=== PATIENT | male | born 1980 | race Caucasian/White ===

== ENCOUNTER 2017-11-05 20:48 | Emergency (ER) | payer MEDICAID, SELFPAY ==
[2017-11-05 21:11] VITALS: BP 117/73; PULSE 84; RESP 18; TEMP 36.9; O2SAT 96
--- NOTE | 2017-11-05 21:24 | ED.GENADUL_ITS ---
Disposition Clinical Impression: Bilateral conjunctivitis Disposition: HOME Condition: Good Instructions: Conjunctivitis (ED) Additional Instructions: Apply ointment to both eyes for 7 days every 6 hours, or until tube is gone if you have deep eye pain or severe worsening of pain return to the emergency department follow up with your primary care provider this week if no improvement Medical Decision Making - Medical Decision Making pt here with what appears to be conjunctivitis, will start on abx ointment. HAs otherwise reassuring exam, no suggestion at this time of gluacoma or orbital cellulitis. ADvised f/u with pcp if no improvement this week and return precautions given - Differential Diagnosis bacterial vs viral vs allergic conjunctivitis History of Present Illness - General Chief complaint: EyeProblem Stated complaint: PINK EYE? Time Seen by Provider: 11/05/17 21:15 Source: patient Mode of arrival: ambulatory Limitations: no limitations - History of Present Illness Initial comments: 37 yo male comes in with 3 days of redness and crusting of the eyes. STarted initially in left eye and now is in right eye. Denies blurred vision or deep eye pain. Has eomi with no pain on movement, PERRL, no periorbital swelling. Both conjunctiva have mild injection, no iritis, iop 10 in each eye. MD Complaint: eye discharge and discomfort Onset/Timin -: days(s) Location: eyes Radiation: non-radiation Severity scale (1-10): 5 Quality: burning Consistency: constant Improves with: none Worsens with: none Associated Symptoms: denies other symptoms - Related Data Fluticasone Propionate [Flonase Allergy Relief] 1 - 2 spray NS DAILY #1 bottle 12/29/15 Albuterol Sulfate [Proair Hfa] 1 - 2 puff IH Q6H PRN #1 inhaler 05/25/17 Budesonide/Formoterol Fumarate [Symbicort 160/4.5 Mcg Inhaler] 2 puff IH BID #1 inhaler 07/04/17 Buspirone HCl 5 mg PO DAILY #90 tab-cap 07/04/17 Cetirizine HCl 10 mg PO DAILY #90 tab 07/04/17 Citalopram Hydrobromide [Citalopram HBr] 20 mg PO DAILY #90 tab 07/04/17 Clonidine HCl 0.1 mg PO HS #90 tab-cap 07/04/17 Gabapentin 600 mg PO BID #180 tab-cap 07/04/17 Lisinopril/Hydrochlorothiazide [Lisinopril-Hctz 10-12.5 mg Tab] 1 tab PO DAILY # 90 tab-cap 07/04/17 Nicotine [Nicotine Patch] 14 mg TD DAILY #28 patch 10/10/17 Allergies Allergy/AdvReac Type Severity Reaction Status Date / Time citalopram AdvReac tremors Unverified 08/01/17 10:06 Opioids - Morphine Analogues AdvReac (h/o Unverified 10/10/17 11:00 addiction; wants to avoid where possible) animal dander Allergy Mild Uncoded 01/03/17 10:40 dust Allergy Mild Uncoded 01/03/17 10:40 hay Allergy Mild Uncoded 01/03/17 10:40 pollen Allergy Mild Uncoded 01/03/17 10:40 Review of Systems Constitutional: denies: fever Respiratory: denies: shortness of breath Cardiovascular: denies: chest pain Gastrointestinal: denies: abdominal pain, nausea, vomiting Musculoskeletal: denies: back pain Skin: denies: rash Comment: All other systems reviewed and negative Past Medical History - Past Medical History Medical history: hypertension - Social History Alcohol use: none Drug use: none General Exam - General Limitations: no limitations General appearance: alert, in no apparent distress - Head Head exam: Present: atraumatic - Eye Eye exam: Present: PERRL, EOMI, conjunctival injection - ENT ENT exam: Present: mucous membranes moist - Neck Neck exam: Present: normal inspection - Respiratory Respiratory exam: Absent: respiratory distress - Cardiovascular Cardiovascular Exam: Present: regular rate - Extremities Exam Extremities exam: Present: normal inspection - Neurological Exam Neurological exam: Present: alert, oriented X3, CN II-XII intact - Psychiatric Psychiatric exam: Present: normal affect - Skin Skin exam: Present: warm Course Vital Signs - 24 hr 11/05/17 21:11 Temperature 98.4 F Pulse 84 Respiratory 18 Rate Blood Pressure 117/73 Pulse Oximetry 96
[2017-11-05] MEDS: Erythromycin Ophth Oint 3.5 GM TUBE OP (21:32)
== END 2017-11-05 21:33 | disposition home or self-care (01) ==
PROVIDERS: Emergency Provider Emergency Medicine; PCP Nurse Practitioner
DX: H10.023 Other mucopurulent conjunctivitis, bilateral (principal); I10 Essential (primary) hypertension
CPT/HCPCS: 99283

== ENCOUNTER 2018-01-04 10:27 | Outpatient (REF) | payer MEDICAID, SELFPAY | END 2018-01-04 10:47 | LOC: LBN 10:27 | PROVIDERS: PCP Nurse Practitioner; Visit Provider Nurse Practitioner Family | DX: J02.9 Acute pharyngitis, unspecified (principal) | CPT/HCPCS: 87070 ==

== ENCOUNTER 2018-01-12 10:34 | Outpatient (CLI) | payer MEDICAID, SELFPAY ==
[2018-01-12 13:12] LABS: ALT 30 U/L (12-78); AST 16 U/L (15-37); Albumin 3.4 g/dL (3.4-5.0); Alkaline Phosphatase 84 U/L (46-116); Anion Gap 7.6 mmol/L (3-11); BUN 15 mg/dL (7-18); Bilirubin, Total 0.3 mg/dL (0.2-1.0); CO2 30.4 mmol/L (21.0-32.0); CREATININE 0.85 mg/dL (0.70-1.30); Calcium 9.1 mg/dL (8.5-10.1); Chloride 104 mmol/L (98-107); Glucose 91 mg/dL (70-100); Potassium 3.8 mmol/L (3.5-5.1); Sodium 142 mmol/L (136-145); Total Protein 7.5 g/dL (6.4-8.2)
[2018-01-16 15:13] LABS: HCV RNA Detection Quantitative Undetected IU/mL (UNDECT)
== END 2018-01-12 10:54 ==
PROVIDERS: PCP Nurse Practitioner; Visit Provider Physician Assistant Medical
DX: B18.2 Chronic viral hepatitis C (principal)
CPT/HCPCS: 36415; 80053; 87522

== ENCOUNTER 2018-06-06 16:27 | Outpatient (CLI) | payer MEDICAID, SELFPAY ==
[2018-06-06 17:43] LABS: *AMPHETAMINES SCREEN URINE Negative (Negative); *BARBITURATES SCREEN URINE Negative (Negative); *BENZODIAZEPINES SCREEN URINE Negative (Negative); Cannabinoids THC Negative (Negative); Cocaine Screen,Urine Negative (Negative); METHADONE URINE SCREEN Negative (Negative); OPIATES URINE SCREEN Negative (Negative)
[2018-06-06 17:56] LABS: Tricyclic Antidepressants Negative (Negative)
[2018-06-06 18:32] LABS: ALT 21 U/L (12-78); AST 18 U/L (15-37); Albumin 3.5 g/dL (3.4-5.0); Alkaline Phosphatase 79 U/L (46-116); Anion Gap 6.4 mmol/L (3-11); BUN 21 mg/dL (7-18); Bilirubin, Total 0.3 mg/dL (0.2-1.0); CO2 32.6 mmol/L (21.0-32.0); Calcium 9.1 mg/dL (8.5-10.1); Chloride 103 mmol/L (98-107); Glucose 83 mg/dL (70-100); Potassium 3.8 mmol/L (3.5-5.1); Sodium 142 mmol/L (136-145); Total Protein 7.7 g/dL (6.4-8.2)
[2018-06-08 14:48] LABS: HCV RNA Detection Quantitative Undetected IU/mL (UNDECT)
== END 2018-06-06 16:47 ==
PROVIDERS: PCP Nurse Practitioner; Visit Provider Nurse Practitioner Adult Health
DX: B17.10 Acute hepatitis C without hepatic coma (principal); F11.21 Opioid dependence, in remission
CPT/HCPCS: 36415; 80053; 80307; 87522

== ENCOUNTER 2018-08-21 16:43 | Emergency (ER) | payer MEDICAID, SELFPAY ==
[2018-08-21 17:03] VITALS: BP 130/82; PULSE 88; RESP 18; TEMP 36.7; O2SAT 99
--- NOTE | 2018-08-21 18:11 | ED.GENADUL_ITS ---
Discharge Plan Disposition Patient Disposition: HOME Discharge Details Chief Complaint: Cellulitis Clinical Impression: Cellulitis of arm, right, Drug abuse, IV, Phlebitis of right arm Primary Care Provider: Lynn Walker ED Provider: Conrado Odom Home Meds and New Rx's Prescriptions: New cephalexin 500 mg tablet 500 mg PO QID 10 Days Qty: 40 RF: 0 sulfamethoxazole-trimethoprim [Bactrim DS] 800-160 mg tablet 1 tab PO BID 10 Days Qty: 20 RF: 0 naloxone 4 mg/actuation spray,non-aerosol 1 spray ARCHANA ONCE PRN (Reason: opioid overdose) Qty: 2 RF: 0 No Action fluticasone propionate [Flonase Allergy Relief] 50 mcg/actuation spray,suspension 1 - 2 spray ARCHANA DAILY PRN (Reason: allergy symptoms) Qty: 9.9 RF: 3 ProAir HFA 90 mcg/actuation HFA aerosol inhaler 1 - 2 puff Inhalation Q4H PRN (Reason: bronchospasm) Qty: 8.5 RF: 6 cetirizine 10 MG tablet 10 mg PO DAILY Qty: 90 RF: 3 Symbicort 10.2 GM HFA aerosol inhaler 2 puff Inhalation BID Qty: 1 RF: 11 nicotine 1 EACH patch 24 hour 14 mg Transdermal DAILY Qty: 28 RF: 0 Mavyret 100-40 mg tablet 3 tab PO DAILY RF: 0 buspirone 5 mg tablet 5 mg PO DAILY Qty: 90 RF: 3 citalopram 10 mg tablet 10 mg PO DAILY Qty: 90 RF: 1 gabapentin 100 mg capsule 100 mg PO DAILY Qty: 90 RF: 1 lisinopril-hydrochlorothiazide 10-12.5 mg tablet 1 tab PO DAILY Qty: 90 RF: 3 Discharge Instructions Instructions: Cellulitis (ED), Superficial Thrombophlebitis (ED) Additional Instructions: Elevate your arm whenever possible. Take your antibiotics to completion. Return to the emergency department promptly for any worsening symptoms including fever, chills, fatigue, worsening redness or pain. Follow-up with your primary care provider or with the emergency department within 48 hours for a recheck Referrals: Lynn Walker, ECHOCARDIOGRAPH TECHNICIAN [Primary Care Provider] - Medical Decision Making Initially patient denied IV drug injection but ultimately disclosed that he did inject IV heroin at site of erythema and pain. Denies any injection of caustic agents such as bath salts. Offered imaging study to evaluate for presence of foreign body such as needle, patient declined states 6 he does not believe he lost any needle component. I did perform a bedside ultrasound which does reveal significant cobblestoning along the area of erythema consistent with cellulitis. Approximately 2 cm depth I do visualize what I believe to be the basilic vein which appears to have a hypoechoic area adjacent to it tracking along it, which I suspect to be consistent with phlebitis of the basilic vein. I do not see any large fluid collection and thus will hold off on incision and drainage patient is lacking constitutional symptoms and overall feels he is improving from 24 hours ago nevertheless due to the extensive size and location of this infection, I have instructed him to return here in 48 hours or with his PCP which she has currently scheduled. Additionally he is aware of need to return promptly for any worsening symptoms as we have reviewed. Medical Records Medical records reviewed: Yes I reviewed the patient's medical records. HPI General Date/Time Provider Initiated Documentation: 08/21/18 17:12 . Limitations to Documentation: no limitations . Information obtained by: patient . HPI Narrative: Gómez Wilson is a 38-year-old gentleman with past medical history significant for IV heroin use, last injected 4 days ago right medial elbow. The following day he developed redness and discomfort at that site, which is slowly progressed over the last 3 days to present time. He denies fevers chills lethargy elbow pain weakness muscle stiffness. He states yesterday he tried to drain it himself with a knife and was able to get a small amount of purulent drainage from the site. Patient denies injecting any other material aside from heroin. She he denies possible retained needle and declines any imaging of this area. He has no additional complaints Related Data Home Medications Medication Instructions Recorded Confirmed Symbicort 2 puff INHALATION BID #1 inhaler 07/04/17 04/14/18 cetirizine 10 mg PO DAILY #90 tab 07/04/17 04/14/18 nicotine 14 mg TRANSDERMAL DAILY #28 patch 10/10/17 04/14/18 fluticasone propionate 50 1 - 2 spray ARCHANA DAILY PRN #9.9 gm 12/06/17 04/14/18 mcg/actuation nasal spray,suspension glecaprevir 100 mg-pibrentasvir 40 3 tab PO DAILY 12/13/17 04/14/18 mg tablet buspirone 5 mg tablet 5 mg PO DAILY #90 tab 02/13/18 04/14/18 albuterol sulfate HFA 90 1 - 2 puff INHALATION Q4H PRN #8.5 04/14/18 04/14/18 mcg/actuation aerosol inhaler gm cephalexin 500 mg PO QID 10 Days #40 tab 08/21/18 citalopram 10 mg tablet 10 mg PO DAILY #90 tab 08/21/18 gabapentin 100 mg capsule 100 mg PO DAILY #90 cap 08/21/18 lisinopril 10 1 tab PO DAILY #90 tab-cap 08/21/18 mg-hydrochlorothiazide 12.5 mg tablet naloxone 1 spray ARCHANA ONCE PRN #2 each 08/21/18 sulfamethoxazole-trimethoprim 1 tab PO BID 10 Days #20 tab 08/21/18 [Bactrim DS] Previous Rx's Medication Instructions Recorded Symbicort 2 puff INHALATION BID #1 inhaler 07/04/17 cetirizine 10 mg PO DAILY #90 tab 07/04/17 nicotine 14 mg TRANSDERMAL DAILY #28 patch 10/10/17 fluticasone propionate 50 1 - 2 spray ARCHANA DAILY PRN #9.9 gm 12/06/17 mcg/actuation nasal spray,suspension buspirone 5 mg tablet 5 mg PO DAILY #90 tab 02/13/18 albuterol sulfate HFA 90 1 - 2 puff INHALATION Q4H PRN #8.5 04/14/18 mcg/actuation aerosol inhaler gm cephalexin 500 mg PO QID 10 Days #40 tab 08/21/18 citalopram 10 mg tablet 10 mg PO DAILY #90 tab 08/21/18 gabapentin 100 mg capsule 100 mg PO DAILY #90 cap 08/21/18 lisinopril 10 1 tab PO DAILY #90 tab-cap 08/21/18 mg-hydrochlorothiazide 12.5 mg tablet naloxone 1 spray ARCHANA ONCE PRN #2 each 08/21/18 sulfamethoxazole-trimethoprim 1 tab PO BID 10 Days #20 tab 08/21/18 [Bactrim DS] Allergies Allergy/AdvReac Type Severity Reaction Status Date / Time citalopram AdvReac Intermediate tremors Verified 04/14/18 13:02 Opioids - Morphine Analogues AdvReac Unknown (h/o Verified 04/14/18 13:02 addiction; wants to avoid where possible) dust Allergy Mild unknown Uncoded 04/14/18 13:02 hay Allergy Mild unknown Uncoded 04/14/18 13:02 pollen Allergy Mild unknown Uncoded 04/14/18 13:02 animal dander Allergy Unknown unknown Uncoded 04/14/18 13:02 General Stated Complaint: Cellulitis ASHTYN: 3 Review of Systems Review of Systems All systems reviewed & are unremarkable except as noted in HPI and below Constitutional Denies chills, Denies fatigue, Denies fever(s) and Denies lethargy Eyes Denies loss of vision ENT Denies nasal congestion and Denies sore throat Cardiovascular Denies chest pain and Denies dyspnea Respiratory Denies cough and Denies dyspnea Gastrointestinal Denies abdominal pain, Denies nausea and Denies vomiting Musculoskeletal Denies back pain, Denies muscle weakness and Denies numbness Integumentary/Breasts Reports erythema (and swelling right elbow and upper arm) Neurologic Denies focal weakness, Denies loss of vision and Denies numbness Endocrine Denies fatigue Hematologic/Lymphatic Denies easy bruising [facility] Medical History Depression (Chronic 03/08/16) Solitary right kidney (Chronic) Nicotine dependence (Chronic) Opioid dependence in remission (Chronic 02/09/16) Intravenous drug abuse, episodic (Resolved 07/04/17) Essential hypertension (Chronic 01/07/14) Asthma (Chronic 11/26/13) Allergic rhinitis (Chronic 11/26/13) Acute hepatitis C without hepatic coma (Chronic 10/10/17) [place] teeth extracted (Resolved) Heroin use (Resolved) De Quervain's disease (radial styloid tenosynovitis) (Resolved 09/06/16) [place] teeth extracted (Inactive) Social History Smoking/Tobacco Use Status: Current every day Tobacco Type: cigarettes Tobacco: How many years used: 10 Alcohol Intake: current Alcohol Intake frequency: other Details: pt states has not drank in the past year Substance use type: former substance user Adopted: No Household members: family and other Details: with 2 daughters Housing: house Number of Children: 2 number of grandchildren: 0 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[employer], 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 [employer] Pets and animals: Yes (2 dogs) Pets and animals: dog(s) What type of physical activity do you participate in: none Seatbelt use: always Working smoke detector in home: Yes Fire extinguisher in home: Yes Do you feel safe at home: Yes Do you feel safe in your relationship?: Yes Exam Const General: cooperative, healthy appearing and no acute distress HENMT Head: normal to inspection Ears: hearing grossly normal bilaterally Eyes EOM: EOM intact bilaterally Neck Neck: normal visual inspection Resp Effort & Inspection: normal respiratory effort Auscultation: clear to auscultation bilaterally Cardio Rate: regular rate Rhythm: regular rhythm Heart Sounds: no murmurs GI Palpation: soft and nontender Skin Other: Right medial elbow and medial upper arm is with erythema warmth and tenderness extending from the medial condyle to the mid shaft of his upper arm along the medial aspect. There is approximately 3 cm area adjacent to a 0.5 cm puncture site localized to the medial elbow of tenderness and induration. There is no fluctuance. There is no discharge. Neuro General: alert, awake and oriented x3 Speech: speech normal Gait: normal gait Extrem General: normal to inspection Course Vital Signs Temperature 36.7 C 08/21/18 17:03 Pulse 88 08/21/18 17:03 Respiratory Rate 18 08/21/18 17:03 Blood Pressure 130/82 08/21/18 17:03 Pulse Oximetry 99 08/21/18 17:03 Temperature 36.7 C 08/21/18 17:03 Temperature Source Skin 08/21/18 17:03 Pulse 88 08/21/18 17:03 Respiratory Rate 18 08/21/18 17:03 Respiratory Effort Non-Labored 08/21/18 17:08 Blood Pressure 130/82 08/21/18 17:03 Blood Pressure Position Sitting 08/21/18 17:03 Pulse Oximetry 99 08/21/18 17:03 Oxygen Delivery Method Room Air 08/21/18 17:03 Oxygen Flow Rate 0 08/21/18 17:03 Pain Level 5 08/21/18 17:03
== END 2018-08-21 18:30 | disposition home or self-care (01) ==
PROVIDERS: Emergency Provider Physician Assistant Medical; PCP Nurse Practitioner
DX: L03.113 Cellulitis of right upper limb (principal); I80.8 Phlebitis and thrombophlebitis of other sites; F11.20 Opioid dependence, uncomplicated; I10 Essential (primary) hypertension
CPT/HCPCS: 99284

== ENCOUNTER 2018-11-16 12:32 | Outpatient (CLI) | payer MEDICAID, SELFPAY ==
[2018-11-16 13:58] LABS: ALT 27 U/L (12-78); AST 16 U/L (15-37); Albumin 3.8 g/dL (3.4-5.0); Alkaline Phosphatase 85 U/L (46-116); Anion Gap 10.4 mmol/L (3-11); BUN 17 mg/dL (7-18); Bilirubin, Total 0.4 mg/dL (0.2-1.0); CO2 28.6 mmol/L (21.0-32.0); CREATININE 1.17 mg/dL (0.70-1.30); Chloride 103 mmol/L (98-107); Glucose 93 mg/dL (70-100); Potassium 3.8 mmol/L (3.5-5.1); Sodium 142 mmol/L (136-145); Total Protein 7.6 g/dL (6.4-8.2)
[2018-11-17 10:20] LABS: Hepatitis C Ab w Rflx HCV PCR Reactive (NEGAT)
[2018-11-17 13:12] LABS: HIV-1/2 Ag & Ab Screen Negative (NEGAT)
[2018-11-20 15:47] LABS: HCV RNA Detection Quantitative Undetected IU/mL (UNDECT)
== END 2018-11-16 12:52 ==
PROVIDERS: PCP Nurse Practitioner Adult Health; Visit Provider Nurse Practitioner Adult Health
DX: F11.21 Opioid dependence, in remission (principal); F19.10 Other psychoactive substance abuse, uncomplicated; I10 Essential (primary) hypertension
CPT/HCPCS: 36415; 80053; 86803; 87389; 87522

== ENCOUNTER 2020-02-05 08:31 | Outpatient (CLI) | payer BC, MEDICAID, SELFPAY ==
[2020-02-08 13:54] LABS: Patient Race White; SARS-CoV-2 RNA Undetected (Undetected); SARS-CoV-2 Specimen Source Nasal
== END 2020-02-05 08:51 ==
PROVIDERS: PCP Nurse Practitioner Adult Health; Visit Provider Nurse Practitioner Adult Health
DX: J02.9 Acute pharyngitis, unspecified (principal); R53.83 Other fatigue; M79.10 Myalgia, unspecified site
CPT/HCPCS: U0003

== ENCOUNTER 2020-11-05 12:35 | Outpatient (CLI) | payer MEDICAID, SELFPAY ==
[2020-11-05 15:04] LABS: ALT 32 U/L (16-63); AST 23 U/L (15-37); Albumin 3.8 g/dL (3.4-5.0); Alkaline Phosphatase 99 U/L (46-116); Anion Gap 7.7 mmol/L (3-11); BUN 14 mg/dL (7-18); Bilirubin, Total 0.5 mg/dL (0.2-1.0); CO2 33.3 mmol/L (21.0-32.0); CREATININE 0.9 mg/dL (0.70-1.30); Calcium 9.3 mg/dL (8.5-10.1); Chloride 103 mmol/L (98-107); Glucose 91 mg/dL (74-106); Potassium 3.6 mmol/L (3.5-5.1); Sodium 144 mmol/L (136-145); Total Protein 7.9 g/dL (6.4-8.2)
[2020-11-06 09:21] LABS: HIV-1/2 Ag & Ab Screen Negative (Negative)
[2020-11-06 09:57] LABS: Hepatitis C Ab w Rflx HCV PCR Reactive (Negative)
[2020-11-06 14:31] LABS: HCV RNA Qualitative Undetected (Undetected)
== END 2020-11-05 12:36 | disposition home or self-care (01) ==
LOC: LBO 12:37
PROVIDERS: PCP Nurse Practitioner Adult Health; Visit Provider Nurse Practitioner Adult Health
DX: B18.2 Chronic viral hepatitis C (principal); F19.10 Other psychoactive substance abuse, uncomplicated
CPT/HCPCS: 36415; 80053; 86803; 87389; 87522

== ENCOUNTER 2021-05-16 13:43 | Emergency (ER) | payer MEDICAID, SELFPAY ==
--- NOTE | 2021-05-16 13:45 | ED.GENADUL_ITS ---
Discharge Plan Disposition Patient Disposition: HOME Condition: Improving Discharge Details Clinical Impression: Acute bronchitis Primary Care Provider: Amanda Ny ED Provider: Salina Kerr Home Meds and New Rx's Prescriptions: New albuterol sulfate 90 mcg/actuation aerosol powdr breath activated 2 inh IH Q6H PRN (Reason: shortness of breath or wheezing) Qty: 1 0RF doxycycline hyclate 100 mg tablet 100 mg PO BID 7 Days Qty: 14 0RF prednisone 50 mg tablet 50 mg PO DAILY 5 Days Qty: 5 0RF benzonatate 100 mg capsule 100 mg PO TID PRN (Reason: cough) Qty: 10 0RF Continued citalopram 20 mg tablet 20 mg PO DAILY Qty: 90 3RF Rx Instructions: Dose increase 10/08/2020 budesonide-formoterol [Symbicort] 160-4.5 mcg/actuation HFA aerosol inhaler 2 puff Inhalation BID Qty: 3 3RF Rx Instructions: DX: ASTHMA buspirone 5 mg tablet 10 mg PO DAILY Qty: 180 3RF methadone 10 mg/5 mL solution 80 mg PO DAILY 0RF Label Comments: BARRT fluticasone propionate [Flonase Allergy Relief] 50 mcg/actuation spray ,suspension 1 - 2 spray ARCHANA DAILY PRN (Reason: allergy symptoms) Qty: 9.9 3RF Rx Instructions: administer into each nostril albuterol sulfate [ProAir HFA] 90 mcg/actuation HFA aerosol inhaler 1 - 2 puff Inhalation Q4H PRN (Reason: bronchospasm) Qty: 17 3RF Rx Instructions: DX: ASTHMA Equivalent Ventolin may be substituted or other albuterol; if able, please dispense 2 inhalers at a time dextroamphetamine-amphetamine [Adderall] 20 mg tablet 20 mg PO BID 0RF Rx Instructions: 01/30/21-per voicemail left from BRITTANI Mustafa (Increased to 20mg BID) lisinopril-hydrochlorothiazide 20-25 mg tablet 1 tab PO DAILY Qty: 90 3RF cetirizine 10 mg tablet 10 mg PO DAILY Qty: 90 3RF Rx Instructions: DX: RUNNY NOSE AND ASTHMA naloxone 4 mg/actuation spray,non-aerosol 1 spray ARCHANA ONCE PRN (Reason: opioid overdose) Qty: 2 0RF albuterol sulfate [ProAir HFA] 90 mcg/actuation HFA aerosol inhaler INHALATION 0RF Label Comments: INHALE 1-2 PUFFS INHALATION EVERY 4 HOURS NEEDED FOR BRONCHOSPASMS Discharge Instructions Instructions: Acute Bronchitis (ED) Additional Instructions: Your chest x-ray today is negative for any acute disease. Your Covid test result is pending. A prescription for an inhaler, cough medication, steroids and antibiotics have been sent electronically to [facility] in [facility]. Drink plenty of fluids and get plenty of rest. Follow-up with your primary care doctor in 1 week. Return to the emergency department with any worsening or new concerning symptoms such as worsening shortness of breath or any other concerns. Please quarantine until your Covid test result is available and if confirmed to be negative. Stand Alone Forms: Work Release Discharge Data Discharge Physician: Salina Kerr Medical Decision Making 41-year-old male with history of ADHD, chronic hepatitis C, multiple substance abuse on methadone, asthma, depression and hypertension presents for productive cough, chest congestion and shortness of breath worse with activity for the past week. Vitals within normal limits. Patient appears comfortable and nontoxic. He has scattered wheezing throughout. Oxygen saturation 92 to 94% on room air. Differential diagnosis includes asthma, asthmatic bronchitis, Covid, pneumonia. Will obtain a Covid swab, portable chest x-ray, DuoNeb, steroids and reassess. Chest x-ray reviewed and negative. Patient reassessed and he states he feels better and would like to go home. He still has scattered wheezing throughout. He was offered additional neb treatment but declined. O2 saturation 92% on room air. He appears in no acute respiratory distress. Prescription for inhaler, steroids, cough medication sent electronically to his pharmacy. He was also given a prescription for antibiotics due to his smoking history. Advised to follow up with the primary care doctor for re-evaluation. Usual and customary return precautions given prior to discharge. Medical Records Medical records reviewed: Yes I reviewed the patient's medical records. Imaging Data Radiologic Study: Radiologist's impression: XR Chest Exam date and time: 05/16/2021 2:23 PM Age: 41 years old Clinical indication: Other: SOB, cough TECHNIQUE: Imaging protocol: XR of the chest. Views: 1 view. COMPARISON: No relevant prior studies available. FINDINGS: Lungs: Lungs are clear with no infiltrate or nodule. Pleural spaces: Unremarkable. No pleural effusion. No pneumothorax. Heart/Mediastinum: The heart is upper normal in size. Bones/joints: Unremarkable. IMPRESSION: No active cardiopulmonary disease. HPI General Date/Time Provider Initiated Documentation: 05/16/21 13:44 . Limitations to Documentation: no limitations . Information obtained by: patient . HPI Narrative: Patient is a 41-year-old male w/ a h/o ADHD, chronic hepatitis C, multiple substance abuse, asthma, depression, hypertension presents for cough with green sputum, shortness of breath and chest congestion for the past week. He denies any known fever and states he has been able to eat and drink. He states he used his entire inhaler over the past day due to his cough or shortness of breath. He is fully vaccinated for COVID including a booster and denies any known exposure to coronavirus. He states he took a Covid test at home yesterday which was negative. He denies any significant headache, ear pain, sore throat, vomiting or diarrhea. Related Data Home Medications Medication Instructions Recorded Confirmed naloxone 4 mg/actuation nasal spray 1 spray ARCHANA ONCE PRN #2 each 08/21/18 05/16/21 budesonide-formoterol HFA 160 2 puff INHALATION BID #3 unit 10/08/20 05/16/21 mcg-4.5 mcg/actuation aerosol inhaler (Symbicort) buspirone 5 mg tablet 10 mg PO DAILY #180 tab 10/08/20 05/16/21 citalopram 20 mg tablet 20 mg PO DAILY #90 tab 10/08/20 05/16/21 methadone 10 mg/5 mL oral solution 80 mg PO DAILY ml 11/07/20 05/16/21 dextroamphetamine-amphetamine 20 20 mg PO BID 02/04/21 05/16/21 mg tablet (Adderall) albuterol sulfate 90 mcg/actuation 1 - 2 puff INHALATION Q4H PRN #17 g 04/08/21 05/16/21 aerosol inhaler (ProAir HFA) fluticasone propionate 50 1 - 2 spray ARCHANA DAILY PRN #9.9 gm 04/08/21 05/16/21 mcg/actuation nasal spray,suspension (Flonase Allergy Relief) cetirizine 10 mg tablet 10 mg PO DAILY #90 tab 05/12/21 05/16/21 lisinopril 20 1 tab PO DAILY #90 tab 05/12/21 05/16/21 mg-hydrochlorothiazide 25 mg tablet albuterol sulfate 90 mcg/actuation INHALATION 05/16/21 05/16/21 aerosol inhaler (ProAir HFA) albuterol sulfate 90 mcg/actuation 2 inh IH Q6H PRN #1 each 05/16/21 breath activated powder inhaler benzonatate 100 mg capsule 100 mg PO TID PRN #10 cap 05/16/21 doxycycline hyclate 100 mg tablet 100 mg PO BID 7 Days #14 tab 05/16/21 prednisone 50 mg tablet 50 mg PO DAILY 5 Days #5 tab 05/16/21 Previous Rx's Medication Instructions Recorded naloxone 4 mg/actuation nasal spray 1 spray ARCHANA ONCE PRN #2 each 08/21/18 budesonide-formoterol HFA 160 2 puff INHALATION BID #3 unit 10/08/20 mcg-4.5 mcg/actuation aerosol inhaler (Symbicort) buspirone 5 mg tablet 10 mg PO DAILY #180 tab 10/08/20 citalopram 20 mg tablet 20 mg PO DAILY #90 tab 10/08/20 albuterol sulfate 90 mcg/actuation 1 - 2 puff INHALATION Q4H PRN #17 g 04/08/21 aerosol inhaler (ProAir HFA) fluticasone propionate 50 1 - 2 spray ARCHANA DAILY PRN #9.9 gm 04/08/21 mcg/actuation nasal spray,suspension (Flonase Allergy Relief) cetirizine 10 mg tablet 10 mg PO DAILY #90 tab 05/12/21 lisinopril 20 1 tab PO DAILY #90 tab 05/12/21 mg-hydrochlorothiazide 25 mg tablet albuterol sulfate 90 mcg/actuation 2 inh IH Q6H PRN #1 each 05/16/21 breath activated powder inhaler benzonatate 100 mg capsule 100 mg PO TID PRN #10 cap 05/16/21 doxycycline hyclate 100 mg tablet 100 mg PO BID 7 Days #14 tab 05/16/21 prednisone 50 mg tablet 50 mg PO DAILY 5 Days #5 tab 05/16/21 Allergies Allergy/AdvReac Type Severity Reaction Status Date / Time Opioids - Morphine Analogues AdvReac Unknown (h/o Verified 05/16/21 13:54 addiction; wants to avoid where possible) dust Allergy Mild unknown Uncoded 05/16/21 13:54 hay Allergy Mild unknown Uncoded 05/16/21 13:54 pollen Allergy Mild unknown Uncoded 05/16/21 13:54 animal dander Allergy Unknown unknown Uncoded 05/16/21 13:54 General ASHTYN: 3 Review of Systems All systems reviewed & are unremarkable except as noted in HPI and below Constitutional Constitutional: Reports as per HPI, Denies chills, Denies excessive sweating, Denies fatigue and Denies fever(s) Eyes Eyes: Denies blurry vision ENT Ears, Nose, Mouth, and Throat: Denies dizziness, Denies sore throat and Denies throat swelling Cardiovascular Cardiovascular: Denies chest pain and Reports dyspnea Respiratory Respiratory: Reports cough, Reports excessive phlegm production and Reports dyspnea Gastrointestinal Gastrointestinal: Denies abdominal pain, Denies diarrhea and Denies vomiting Genitourinary Genitourinary: Denies hematuria and Denies dysuria Musculoskeletal Musculoskeletal: Denies back pain and Denies numbness Integumentary/Breasts Skin/Breast: Denies lesions and Denies rash Neurologic Neurologic: Denies behavioral changes, Denies confusion, Denies dizziness, Denies localized weakness and Denies numbness Psychiatric Psychiatric: Denies behavioral changes, Denies confusion and Denies depression Endocrine Endocrine: Denies excessive sweating and Denies fatigue Hematologic/Lymphatic Hematologic/Lymphatic: Denies easy bruising and Denies lymphadenopathy Allergic/Immunologic Allergic/Immunologic: Denies throat swelling PFSH All Active Problems (Updated 05/16/21 @ 14:53 by Salina Kerr DO) Acute bronchitis (Acute) ADHD (attention deficit hyperactivity disorder) (Acute) [facility] started adderall 11/2020 Weight gain (Acute) Chronic hepatitis C (Chronic) s/p [facility] treatment 2018 Multiple substance abuse (Chronic) Opioids (fentanyl, heroin, IVDA), cocaine 2015: [place], heroin,cocaine 05/18/17- 05/24/17: [place] [facility] with discharge to [facility] (IV Fentanyl,IV cocaine) 10/2018: [facility] early 2019: Relapse cocaine & fentanyl 02/2020: RUBY/Methadone Depression (Chronic 03/08/16) 02/09/16 PHQ-9 score 15 mod severe Citalopram, stopped secondary to sexual side effects; resumed 04/2018 Solitary right kidney (Chronic) Incidental finding on CT 11/2017 [facility] Nicotine dependence (Chronic) Opioid dependence in remission (Chronic 02/09/16) Heroin--IVDA Iain Valdez BARRT 2014, then relapse, 2016 on Methadone 2018--IVDA (Fentanyl & Cocaine); [facility] followed by Iain Valdez; discharge on Earnest, Clonidine Essential hypertension (Chronic 01/07/14) Dx: 01/2014, RX Losartan & lifestyle Losartan dc'ed 02/2016 due to ins, changed to Lisinopril 07/2016: Higher-dose Lisinopril (20mg) caused GI probs, changed to Lisinopril- HCTZ 10-12.5mg Asthma (Chronic 11/26/13) PFTs 12/10/2013, severe obstructive disease Allergic rhinitis (Chronic 11/26/13) Medical History De Quervain's disease (radial styloid tenosynovitis) (09/06/16) Right Ortho+Mobic+Splint Surgical History Whitlash teeth extracted Family History Mother Hyperlipidemia Substance abuse nicotine, EtOH Father No problems noted. Brother Asthma Maternal Aunt Lupus Maternal Aunt Celiac disease Paternal Grandfather Pancreatic cancer Social History Smoking/Tobacco Use Status: Current every day Tobacco Type: cigarettes Years smoked: 1 Tobacco: How many years used: 10 Smokeless tobacco user: other Quit status: not considering quitting Smoking risk assessment performed?: Yes Alcohol Intake: former Year quit: 2017 Details: pt states has not drank in the past year Drug use: Current Sobriety Substance use type: heroin Details: has not used x 4 months, GOES TO [place] Adopted: No Household members: significant other Housing: house Number of Children: 2 number of grandchildren: 0 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 [employer] Pets and animals: Yes (2 dogs) Pets and animals: dog(s) What is your relationship status?: living with partner Panel score (0-1 are the most socially isolated patients): 1 What type of physical activity do you participate in: none Seatbelt use: always Working smoke detector in home: Yes Fire extinguisher in home: Yes Do you feel safe at home: Yes Do you feel safe in your relationship?: Yes Exam Const General: cooperative, healthy appearing and no acute distress Orientation: alert and awake HENMT Head: normal to inspection Ears: hearing grossly normal bilaterally, external ears normal and TM's normal bilaterally General nose exam: external nose normal Face and sinus: normal facial exam Mouth: oral mucosae normal Teeth and gingiva: dentition normal Throat: posterior oropharynx normal Eyes General: appearance normal, both eyes and all related structures Eyelids: eyelids normal Pupils: PERRL EOM: EOM intact bilaterally Neck Neck: normal visual inspection Lymphatic: no lymphadenopathy noted Chest Chest: normal inspection of the chest Resp Effort & Inspection: normal respiratory effort and able to speak in complete sentences Auscultation: wheezes scattered wheezes Cardio Rate: regular rate Rhythm: regular rhythm GI Inspection: normal to inspection Palpation: soft, not firm, no guarding, no hepatosplenomegaly, no masses and nontender Auscultation: normal bowel sounds Skin General skin exam: no rashes or lesions noted Neuro General: patient alert, patient awake and patient oriented x3 Cognition: normal cognition Speech: speech normal Gait: normal gait Motor: muscle tone normal throughout Sensory Exam: no sensory deficits noted Extrem General: normal to inspection and full ROM Psych Appearance: grossly normal Mental Status: mental status grossly normal Speech and Movement: speech and movement normal Affect: normal affect Thought Process: normal
[2021-05-16 13:49] VITALS: BP 127/67; PULSE 77; RESP 16; TEMP 36.6; O2SAT 93
--- NOTE | 2021-05-16 14:15 | DI.RAD_ITS ---
Exam(s) XR PORTABLE CHEST AP EXAM: XR PORTABLE CHEST AP CLINICAL HISTORY: cough, sob, r/o acute disease TECHNIQUE: 2D digital imaging was performed of the chest. One image was obtained. An AP view was ob tained. COMPARISON: No exams were available for comparison FINDINGS: MEDIASTINUM: Normal. HEART: Upper limits of normal in size. PULMONARY VASCULATURE: Normal. LUNGS: Clear. PLEURAL SPACE: No pleural effusion or pneumothorax. BONE:Within normal limits for the patient's age. OTHER FINDINGS:Normal. IMPRESSION: No acute pulmonary findings. DATA REPOSITORY: RADIATION DOSE DELIVERED:
[2021-05-16] MEDS: predniSONE 20 MG TAB 60 MG PO (14:32)
[2021-05-16] MEDS: Albuterol/Ipratropium 3 ML UPD VIAL UPD (15:02)
--- NOTE | 2021-05-16 15:24 | DI.VRAD_ITS ---
PROCEDURE INFORMATION: Exam: XR Chest Exam date and time: 05/16/2021 2:23 PM Age: 41 years old Clinical indication: Other: SOB, cough TECHNIQUE: Imaging protocol: XR of the chest. Views: 1 view. COMPARISON: No relevant prior studies available. FINDINGS: Lungs: Lungs are clear with no infiltrate or nodule. Pleural spaces: Unremarkable. No pleural effusion. No pneumothorax. Heart/Mediastinum: The heart is upper normal in size. Bones/joints: Unremarkable. IMPRESSION: No active cardiopulmonary disease. Dictated and Authenticated by: Magdi Bach MD. Ordering:YOBANI Downing MD
[2021-05-18 12:00] LABS: COVID-19 RT-PCR UVMMC Result Negative (Negative)
--- NOTE | 2021-05-18 18:36 | NUR.NOTE ---
letter sent to pt regarding neg covid result.Nursing Note:
== END 2021-05-16 13:52 | disposition home or self-care (01) ==
PROVIDERS: Emergency Provider Physician Assistant; PCP Nurse Practitioner Adult Health
DX: J20.9 Acute bronchitis, unspecified (principal); R06.02 Shortness of breath; Z20.822 Contact with and (suspected) exposure to COVID-19; Z87.891 Personal history of nicotine dependence
CPT/HCPCS: 99283; U0003; 71045; J7512; J7620

== ENCOUNTER 2021-11-03 03:44 | Outpatient (CLI) | payer MEDICAID, SELFPAY ==
[2021-11-03] MEDS: Albuterol HFA 18 GM 200 PUFF INH IH (14:18)
[2021-11-03] MEDS: Inhaler, Assist Device 1 EACH MC (14:19)
--- NOTE | 2021-11-04 12:51 | W.PFT ---
Date of service: 11/03/21 Time of Service: 13:41 Pulmonary Function Test Result Requesting Provider Amanda Ny Indications: Asthma Interpretation Spirometry: There is moderate airflow limitation. There is not a significant bronchodilator response. Impression Moderate airflow obstruction. Clinical Correlation therefore is recommended.
== END 2021-11-03 03:45 | disposition home or self-care (01) ==
LOC: RT 03:44
PROVIDERS: PCP Nurse Practitioner Adult Health; Visit Provider Nurse Practitioner Adult Health
DX: R94.2 Abnormal results of pulmonary function studies (principal); J45.20 Mild intermittent asthma, uncomplicated; R06.09 Other forms of dyspnea; R05.9 Cough, unspecified; F17.210 Nicotine dependence, cigarettes, uncomplicated
CPT/HCPCS: 94060

== ENCOUNTER 2022-02-23 10:57 | Emergency (ER) | payer MEDICAID, SELFPAY ==
[2022-02-23 11:10] VITALS: BP 145/100; PULSE 92; RESP 16; TEMP 35.7; O2SAT 96
--- NOTE | 2022-02-23 11:31 | ED.GENADUL_ITS ---
Discharge Plan Disposition Patient Disposition: Home Condition: Improving Discharge Details Clinical Impression: Cellulitis of arm, right Primary Care Provider: Amanda Ny ED Provider: Magdi Fatima Home Meds and New Rx's Prescriptions: New amoxicillin-pot clavulanate 875-125 mg tablet 1 tab PO BID 10 Days Qty: 20 0RF Continued methadone 10 mg/5 mL solution 110 mg PO DAILY Label Comments: BROOKE dextroamphetamine-amphetamine [Adderall] 20 mg tablet 20 mg PO BID Rx Instructions: 01/30/21-per voicemail left from BRITTANI Mustafa (Increased to 20mg BID) lisinopril-hydrochlorothiazide 20-25 mg tablet 1 tab PO DAILY Qty: 90 3RF cetirizine 10 mg tablet 10 mg PO DAILY Qty: 90 3RF Rx Instructions: DX: RUNNY NOSE AND ASTHMA citalopram 20 mg tablet See Rx Instructions .ROUTE .COMPLEX Qty: 90 3RF Dose Instruction: TAKE 1 TABLET BY MOUTH DAILY Rx Instructions: TAKE 1 TABLET BY MOUTH DAILY fluticasone propionate 50 mcg/actuation spray,suspension See Rx Instructions .ROUTE .COMPLEX Qty: 16 4RF Dose Instruction: SHAKE LIQUID AND USE 1 TO 2 SPRAYS IN EACH NOSTRIL DAILY NEEDED FOR ALLERGY SYMPTOMS Rx Instructions: SHAKE LIQUID AND USE 1 TO 2 SPRAYS IN EACH NOSTRIL DAILY NEEDED FOR ALLERGY SYMPTOMS buspirone 5 mg tablet See Rx Instructions .ROUTE .COMPLEX Qty: 180 3RF Dose Instruction: TAKE 2 TABLETS BY MOUTH ONCE DAILY FOR ANXIETY Rx Instructions: TAKE 2 TABLETS BY MOUTH ONCE DAILY FOR ANXIETY budesonide-formoterol [Symbicort] 160-4.5 mcg/actuation HFA aerosol inhaler See Rx Instructions .ROUTE .COMPLEX Qty: 30.6 0RF Dose Instruction: INHALE 2 PUFFS BY MOUTH TWICE DAILY FOR ASTHMA Rx Instructions: INHALE 2 PUFFS BY MOUTH TWICE DAILY FOR ASTHMA albuterol sulfate [ProAir HFA] 90 mcg/actuation HFA aerosol inhaler 1 - 2 puff Inhalation Q4H MDD 24 inh/day PRN (Reason: bronchospasm) Qty: 17 3RF Rx Instructions: DX: ASTHMA Equivalent Ventolin may be substituted or other albuterol; if able, please dispense 2 inhalers at a time naloxone 4 mg/actuation spray,non-aerosol 1 spray ARCHANA ONCE PRN (Reason: opioid overdose) Qty: 2 0RF Discharge Instructions Instructions: Cellulitis (ED) Additional Instructions: Take antibiotics as prescribed until finished. Elevate above the level of the heart to reduce pain and swelling. Return if develop a pointing abscess or drainage from the wound. Avoid any further use of IV needles in this affected extremity. Medical Decision Making 41-year-old male drug user states that he missed the vein on his right mid arm yesterday and has developed surrounding erythema. No fever. He has induration but no evidence of abscess formation. Discussed with him close monitoring of this. We will place him on a course of oral antibiotics. He is to follow-up for placement to rehabilitation facility tomorrow. He understands return precautions to the ER. Sign Out No HPI General Mode of arrival: ambulatory . Date/Time Provider Initiated Documentation: 02/23/22 11:01 . Limitations to Documentation: no limitations . Information obtained by: patient . History of Present Illness 41 year old M presents to the emergency department with the chief complaint of Right mid arm injection site infection, described as moderate, Quality is described as dull and constant, and is localized to the right and upper extremity. Patient reports no radiation. Patient started experiencing this hour(s) and it has been constant. No relieving factors improve symptom(s), No exacerbating factors reported . Patient notes denies fever/chills and loss of appetite. Patient did receive the following treatments prior to arrival, none Related Data Home Medications Medication Instructions Recorded Confirmed naloxone 4 mg/actuation nasal spray 1 spray intranasal ONCE PRN opioid 08/21/18 02/23/22 overdose #2 ea dextroamphetamine-amphetamine 20 20 mg PO BID 02/04/21 02/23/22 mg tablet (Adderall) cetirizine 10 mg tablet 10 mg PO DAILY #90 tabs 05/12/21 02/23/22 lisinopril 20 1 tab PO DAILY #90 tabs 05/12/21 02/23/22 mg-hydrochlorothiazide 25 mg tablet methadone 10 mg/5 mL oral solution 110 mg PO DAILY 05/29/21 02/23/22 citalopram 20 mg tablet See Rx Instructions .Route 08/12/21 02/23/22 .COMPLEX #90 tabs fluticasone propionate 50 See Rx Instructions .Route 09/15/21 02/23/22 mcg/actuation nasal .COMPLEX #16 grams spray,suspension buspirone 5 mg tablet See Rx Instructions .Route 10/12/21 02/23/22 .COMPLEX #180 tabs budesonide-formoterol HFA 160 See Rx Instructions .Route 12/28/21 02/23/22 mcg-4.5 mcg/actuation aerosol .COMPLEX #30.6 grams inhaler (Symbicort) albuterol sulfate 90 mcg/actuation 1 - 2 puff inhalation Q4H PRN 01/08/22 02/23/22 aerosol inhaler (ProAir HFA) bronchospasm #17 grams amoxicillin 875 mg-potassium 1 tab PO BID 10 days #20 tabs 02/23/22 clavulanate 125 mg tablet Previous Rx's Medication Instructions Recorded naloxone 4 mg/actuation nasal spray 1 spray intranasal ONCE PRN opioid 08/21/18 overdose #2 ea cetirizine 10 mg tablet 10 mg PO DAILY #90 tabs 05/12/21 lisinopril 20 1 tab PO DAILY #90 tabs 05/12/21 mg-hydrochlorothiazide 25 mg tablet citalopram 20 mg tablet See Rx Instructions .Route 08/12/21 .COMPLEX #90 tabs fluticasone propionate 50 See Rx Instructions .Route 09/15/21 mcg/actuation nasal .COMPLEX #16 grams spray,suspension buspirone 5 mg tablet See Rx Instructions .Route 10/12/21 .COMPLEX #180 tabs budesonide-formoterol HFA 160 See Rx Instructions .Route 12/28/21 mcg-4.5 mcg/actuation aerosol .COMPLEX #30.6 grams inhaler (Symbicort) albuterol sulfate 90 mcg/actuation 1 - 2 puff inhalation Q4H PRN 01/08/22 aerosol inhaler (ProAir HFA) bronchospasm #17 grams amoxicillin 875 mg-potassium 1 tab PO BID 10 days #20 tabs 02/23/22 clavulanate 125 mg tablet Allergies Allergy/AdvReac Type Severity Reaction Status Date / Time Opioids - Morphine Analogues AdvReac Unknown (h/o Verified 02/23/22 11:29 addiction; wants to avoid where possible) dust Allergy Mild unknown Uncoded 02/23/22 11:29 hay Allergy Mild unknown Uncoded 02/23/22 11:29 pollen Allergy Mild unknown Uncoded 02/23/22 11:29 animal dander Allergy Unknown unknown Uncoded 02/23/22 11:29 General Stated Complaint: Cellulitis ASHTYN: 3 Review of Systems Narrative: No other complaints, otherwise well. Denies fever. States he is going to rehab tomorrow. 7 systems reviewed and otherwise negative [facility] All Active Problems (Updated 02/23/22 @ 11:33 by Magdi Fatima MD) Cellulitis of arm, right (Acute) History of hepatitis C (Chronic ~2017) ADHD (attention deficit hyperactivity disorder) (Chronic ~11/2020) [facility] Psychiatry started adderall 11/2020 Multiple substance abuse (Chronic ~2014) Opioids (fentanyl, heroin, IVDA), cocaine 2015: [place], heroin,cocaine 05/18/17- 05/24/17: [place] [facility] with discharge to [facility] (IV Fentanyl,IV cocaine) 10/2018: [place] early 2019: Relapse cocaine & fentanyl 02/2020: [facility]/Methadone Depression (Chronic 03/08/16) [facility] Psychiatry 02/09/16 PHQ-9 score 15 mod severe Citalopram, stopped secondary to sexual side effects; resumed 04/2018 Solitary right kidney (Chronic ~2017) Incidental finding on CT 11/2017 [facility] [place] Nicotine dependence (Chronic) Essential hypertension (Chronic 01/07/14) Dx: 01/2014, RX Losartan & lifestyle Losartan dc'ed 02/2016 due to ins, changed to Lisinopril 07/2016: Higher-dose Lisinopril (20mg) caused GI probs, changed to Lisinopril- HCTZ 10-12.5mg Asthma (Chronic 11/26/13) PFTs 12/10/2013 severe obstructive disease & 11/2021-->airflow obstruction Medical History Allergic rhinitis (11/26/13) Chronic hepatitis C s/p [facility] [place] 2018 De Quervain's disease (radial styloid tenosynovitis) (09/06/16) Right Ortho+Mobic+Splint Intravenous drug abuse, episodic (07/04/17) IV Fentanyl and Cocaine 2018: [place] [facility]: Relapse 02/2020: [facility] with Methadone treatment Opioid dependence in remission (02/09/16) Heroin--IVDA [facility] 2014, then relapse, 2016 on Methadone 2018--IV[facility] (Fentanyl & Cocaine); [facility] [place] [facility] by [facility]; discharge on Earnest, Clonidine Surgical History Roberts teeth extracted Family History Mother Hyperlipidemia Substance abuse nicotine, EtOH Father No problems noted. Brother Asthma Maternal Aunt Lupus Maternal Aunt Celiac disease Paternal Grandfather Pancreatic cancer Social History Smoking/Tobacco Use Status: Current every day Tobacco Type: cigarettes Years smoked: 1 Tobacco: How many years used: 10 Smokeless tobacco user: other Quit status: not considering quitting Smoking risk assessment performed?: Yes Alcohol Intake: former Year quit: 2017 Drug use: Current Sobriety Substance use type: heroin Details: GO[facility] Adopted: No Household members: friend(s) Housing: house Number of Children: 2 number of grandchildren: 0 Communication Needs: None 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 Pleasant, well groomed, interactive. HEAD: Normocephalic, atraumatic ENT: Mucous membranes moist, oropharynx unremarkable, External ear exam unremarkable EYES: PERRL, EOMI NECK: Full ROM, no MERRICK, no menigismus CHEST/RES no respiratory distress EXT: Full ROM, right lateral elbow is slightly edematous with area of blanching erythema. Slight induration, no focal abscess appreciated. Neuro: Grossly normal neurologic exam, conversant, interactive. Psych: Speech fluent, thoughts congruent, affect normal Course Vital Signs Vital signs: Vital Signs Temperature 35.7 C L 02/23/22 11:10 Pulse 92 H 02/23/22 11:10 Respiratory Rate 16 02/23/22 11:10 Blood Pressure 145/100 H 02/23/22 11:10 Pulse Oximetry 96 02/23/22 11:10 Temperature 35.7 C L 02/23/22 11:10 Temperature Source Tympanic 02/23/22 11:10 Pulse 92 H 02/23/22 11:10 Respiratory Rate 16 02/23/22 11:10 Respiratory Effort 02/23/22 11:29 Blood Pressure 145/100 H 02/23/22 11:10 Blood Pressure Position Sitting 02/23/22 11:10 Pulse Oximetry 96 02/23/22 11:10 Oxygen Delivery Method Room Air 02/23/22 11:10 Oxygen Flow Rate 0 02/23/22 11:10 Pain Level 4 02/23/22 11:10
[2022-02-23] MEDS: Amoxicillin 875/Clav. 125 TAB PO (11:43)
== END 2022-02-23 11:46 | disposition home or self-care (01) ==
PROVIDERS: Emergency Provider Emergency Medicine; PCP Nurse Practitioner Adult Health
DX: L03.113 Cellulitis of right upper limb (principal)
CPT/HCPCS: 99283

== ENCOUNTER 2022-03-23 02:20 | Outpatient (CLI) | payer MEDICAID, SELFPAY ==
[2022-03-23 13:55] LABS: Abs Immature Grans 0.04 10^3/uL (0.0-0.06); Absolute Basophil Count 0.07 10^3/uL (0.0-0.2); Absolute Lymphocyte Count 2.35 10^3/uL (1.2-3.4); Absolute Neutrophil Count 6.94 10^3/uL (1.2-6.7); Basophils % 0.7; Eosinophils % 2.8; HGB 16.8 g/dL (13.5-17.5); Immature Grans % 0.4; Lymphocytes % 22.2; MCH 28.4 pg (27.0-33.0); MCHC 34.3 % (32.0-36.0); MCV 83 fL (80-95); MPV 8.8 fL (8.0-11.0); Monocytes % 8.5; Neutrophils % 65.4; Platelet Count 289 10^3/uL (130-400); RBC 5.92 10^6/uL (4.36-5.78); RDW 12.9 % (11.8-14.1); RDW-SD 38.7 fL
[2022-03-23 14:10] LABS: ALT 178 U/L (16-63); AST 71 U/L (15-37); Albumin 3.9 g/dL (3.4-5.0); Alkaline Phosphatase 98 U/L (46-116); Anion Gap 9.4 mmol/L (3-11); BUN 15 mg/dL (7-18); Bilirubin, Total 0.5 mg/dL (0.2-1.0); CO2 27.6 mmol/L (21.0-32.0); Calcium 9.9 mg/dL (8.5-10.1); Chloride 101 mmol/L (98-107); Estimated GFR 96.37 (mL/min/1.73m2); Glucose 125 mg/dL (74-106); Potassium 3.4 mmol/L (3.5-5.1); Sodium 138 mmol/L (136-145); Total Protein 8.9 g/dL (6.4-8.2)
[2022-03-24 09:32] LABS: HIV-1/2 Ag & Ab Screen Negative (Negative)
[2022-03-24 10:40] LABS: Hepatitis A Antibody IgM Negative (Negative); Hepatitis B Core Antibody Negative (Negative); Hepatitis B surface Ag Negative (Negative); Hepatitis C Ab w Rflx HCV PCR Reactive (Negative)
[2022-03-24 13:51] LABS: HCV RNA Qualitative Detected (Undetected)
== END 2022-03-23 02:21 | disposition home or self-care (01) ==
LOC: LBO 02:20
PROVIDERS: PCP Nurse Practitioner Adult Health; Visit Provider Nurse Practitioner Adult Health
DX: B18.2 Chronic viral hepatitis C (principal); Z11.4 Encounter for screening for human immunodeficiency virus [HIV]; F19.10 Other psychoactive substance abuse, uncomplicated; I10 Essential (primary) hypertension; Z86.19 Personal history of other infectious and parasitic diseases
CPT/HCPCS: 36415; 80053; 86704; 86709; 86803; 87340; 87389; 87522; 85025

== ENCOUNTER 2022-04-02 15:45 | Outpatient (REF) | payer MEDICAID, SELFPAY ==
[2022-04-02 19:11] LABS: *AMPHETAMINES SCREEN URINE Negative (Negative); *BARBITURATES SCREEN URINE Negative (Negative); *BENZODIAZEPINES SCREEN URINE Negative (Negative); Cannabinoids THC Negative (Negative); Cocaine Screen,Urine Positive (Negative); METHADONE URINE SCREEN Negative (Negative); OPIATES URINE SCREEN Positive (Negative)
[2022-04-02 19:21] LABS: Tricyclic Antidepressants Negative (Negative)
== END 2022-04-02 15:46 | disposition home or self-care (01) ==
LOC: LBN 15:45
PROVIDERS: PCP Nurse Practitioner Adult Health; Visit Provider Nurse Practitioner Adult Health
DX: Z51.81 Encounter for therapeutic drug level monitoring (principal)
CPT/HCPCS: 80307

== ENCOUNTER 2022-04-28 16:50 | Emergency (ER) | payer MEDICAID, SELFPAY ==
[2022-04-28 16:53] VITALS: BP 170/94; PULSE 76; RESP 18; TEMP 36.8; O2SAT 99
--- NOTE | 2022-04-28 17:00 | DI.CT_ITS ---
Exam(s) CT ABDOMEN PELVIS W EXAM: CT ABDOMEN PELVIS W CLINICAL HISTORY: Abd Pain, Diarrhea, Hx of hernia. TECHNIQUE: Imaging Protocol: Axial computed tomography images with coronal and sagittal reformatted images were created and reviewed CONTRAST MATERIAL: Intravenous: Omnipaque-350 100cc Oral: None COMPARISON: No exams were available for comparison FINDINGS: VISUALIZED LUNG BASES: No nodules nor pleural effusions evident. ABDOMEN: There is no ascites. LIVER: There are no focal hepatic lesions evident. No dilated intrahepatic ducts. GALLBLADDER/BILIARY: No obvious gallbladder pathology. CBD is not dilated. PANCREAS: No evidence of pancreatic mass nor dilatation of the pancreatic duct. SPLEEN: Spleen is not enlarged. No obvious intrasplenic lesions. Splenic and portal veins are paten t. ADRENALS: Right adrenal gland unremarkable. Left adrenal gland absent. KIDNEYS:There is a solitary right kidney. Slightly prominent in size, most probably compensatory. N o kidney mass nor cyst. No calculi. No hydronephrosis of the solitary right kidney. There is no le ft kidney seen. Also no obvious left adrenal gland.. ABDOMINAL AORTA: Abdominal aorta is not enlarged. LYMPH NODES:There is no retroperitoneal nor paraaortic adenopathy. ABDOMINAL WALL: There is a moderate size midline above fat containing umbilical hernia. There are no bowel loops nor fluid collection with in the hernia although some streaking within the fat within th e hernia sac is noted. GI: Small bowel is abnormal. There are mildly dilated and edematous small bowel loops exhibiting 5-6 millimeter circumferential wall thickness. Distal most ileum is collapsed. The colon is not collap sed but contains fluid and fecal material. PELVIS: GI: No evidence of appendicitis.No evidence of sigmoid diverticulitis. LYMPH NODES: There is no intrapelvic nor inguinal adenopathy. REPRODUCTIVE: There is a large abnormal cystic mass at the level of the prostate gland measuring 10 c m wide by 7 cm AP by 7.5 cm craniocaudal. Impresses upon the urinary bladder. Prostate difficult to delineate is a separate structure from this abnormal structure. URINARY BLADDER: As above. Deviated anteriorly by the prostate level mass. OSSEOUS: No fractures and no significant osseous lesions. IMPRESSION: 1. There are numerous dilated and circumferentially edematous small bowel loops either representing i nflammatory process/enteritis or possibly an element of bowel obstruction given the moderate size ant erior abdominal wall hernia here (which does not itself contain bowel loops).. The colon is not dorothea apsed. 2. Abnormal large cystic mass in the deep pelvis which appears replaced prostate gland, this measurin g 10 x 7 x 7.5 cm. This indents and deviates the urinary bladder anteriorly. 3. No obvious adenopathy evident. Incidentally noted is a solitary right kidney and solitary right a drenal gland. First read by [facility]. Discussed by myself with ER physician 04/29/2022 a.m. RADIATION DOSE DELIVERED: 928.97mGy.cm Total DLP DATA REPOSITORY: All CT scans at this facility are submitted to the National Radiology Data Registry (NRDR) Dose Index Registry (DIR) with the [employer] (ACR). RADIATION OPTIMIZATION: All CT scans at this facility use at least one of these dose optimization te chniques: automated exposure control; mA and/or kV adjustment per patient size (includes targeted exa ms where dose is matched to clinical indication); or iterative reconstruction.
--- NOTE | 2022-04-28 17:15 | ED.GENADUL_ITS ---
Discharge Plan Disposition Patient Disposition: Home Condition: Improving Discharge Details Clinical Impression: Nausea vomiting and diarrhea, Hernia, umbilical, Gastroenteritis Primary Care Provider: Amanda Ny ED Provider: Farnaz Turk Home Meds and New Rx's Prescriptions: New dicyclomine 20 mg tablet 20 mg PO TID PRN (Reason: stomach upset) Qty: 14 0RF Rx Instructions: Take 1 tablet up to 3 times daily as needed for stomach cramps or stomach upset sucralfate [Carafate] 100 mg/mL suspension 10 ml PO QACHS PRN (Reason: stomach upset) 7 Days Qty: 414 0RF Rx Instructions: Take 10 mils before meals and at bedtime as needed for stomach upset. Continued albuterol sulfate [ProAir HFA] 90 mcg/actuation HFA aerosol inhaler 1 - 2 puff Inhalation Q4H MDD 24 inh/day PRN (Reason: bronchospasm) Qty: 17 3RF Rx Instructions: DX: ASTHMA Equivalent Ventolin may be substituted or other albuterol; if able, please dispense 2 inhalers at a time budesonide-formoterol [Symbicort] 160-4.5 mcg/actuation HFA aerosol inhaler See Rx Instructions .ROUTE .COMPLEX Qty: 30.6 3RF Dose Instruction: INHALE 2 PUFFS BY MOUTH TWICE DAILY FOR ASTHMA Rx Instructions: INHALE 2 PUFFS BY MOUTH TWICE DAILY FOR ASTHMA naltrexone 50 mg tablet 50 mg PO DAILY Qty: 30 0RF lisinopril-hydrochlorothiazide 20-25 mg tablet 1 tab PO DAILY Qty: 90 3RF cetirizine 10 mg tablet 10 mg PO DAILY Qty: 90 3RF Rx Instructions: DX: RUNNY NOSE AND ASTHMA citalopram 20 mg tablet See Rx Instructions .ROUTE .COMPLEX Qty: 90 3RF Dose Instruction: TAKE 1 TABLET BY MOUTH DAILY Rx Instructions: TAKE 1 TABLET BY MOUTH DAILY fluticasone propionate 50 mcg/actuation spray,suspension See Rx Instructions .ROUTE .COMPLEX Qty: 16 4RF Dose Instruction: SHAKE LIQUID AND USE 1 TO 2 SPRAYS IN EACH NOSTRIL DAILY NEEDED FOR ALLERGY SYMPTOMS Rx Instructions: SHAKE LIQUID AND USE 1 TO 2 SPRAYS IN EACH NOSTRIL DAILY NEEDED FOR ALLERGY SYMPTOMS buspirone 5 mg tablet See Rx Instructions .ROUTE .COMPLEX Qty: 180 3RF Dose Instruction: TAKE 2 TABLETS BY MOUTH ONCE DAILY FOR ANXIETY Rx Instructions: TAKE 2 TABLETS BY MOUTH ONCE DAILY FOR ANXIETY naloxone 4 mg/actuation spray,non-aerosol 1 spray ARCHANA ONCE PRN (Reason: opioid overdose) Qty: 2 0RF Discharge Instructions Instructions: Gastroenteritis (ED), Umbilical Hernia (ED) Additional Instructions: Please take the medications as prescribed. May take the Zofran 20 to 30 minutes before eating or drinking anything as needed for nausea. Please follow-up with general surgery to discuss umbilical hernia repair. Return to the ER for any worsening pain not relieved by Tylenol or ibuprofen, vomiting not relieved by medications,, fever or any concerns or feeling sicker at any time. Follow up with primary care provider in 3-5 days. Return to ED sooner if any worsening or concerns. Increase oral fluids. Referrals: Harper Ruth MD [[facility] STAFF PHYSICIAN] - 1 week Amanda Ny MACHINIST SUPERVISOR [Primary Care Provider] - 2 weeks Joie Cornejo DO [OSTEOPATHIC DOCTOR] - 1 week Medical Decision Making 42-year-old male with a past medical history of ADHD, depression, hypertension, asthma hepatitis C and opioid use disorder in remission presents to the ER with a chief complaint of abdominal pain left upper quadrant and periumbilical which began on Tuesday, reports nausea vomiting and diarrhea on Tuesday. He reports that he is no longer vomiting however the diarrhea remains. He reports 5 episodes of loose diarrhea a day. He does have a history of umbilical hernia which has never been repaired. Work-up ordered including CBC, CMP, lipase, lactate, hepatitis panel added on, liter normal saline [address] abdomen pelvis with IV contrast to rule out obstruction or hernia. Labs returned with slight leukocytosis white blood cell count 11.58, neutrophils 7.87, sodium 139 potassium 2.8, glucose 111 ALT is 103 which is improved from his previous result AST within normal limits, lipase is 101, 1739: 10 mEq of potassium IV ordered. Will consider p.o. potassium x1 if patient is able to tolerate p.o. Differential diagnosis includes but not limited to bowel obstruction, incarcerated hernia, gastroenteritis, viral enteritis Upon reevaluation patient reports that he is feeling better. His abdominal pain has now moved to his bilateral sides. 1755: Spoke with surgeon on-call Dr. Nieto regarding CT results as noted below. Discussed labs with him he verbalized understanding. He does not recommend admission at this time but he does recommend follow-up with general surgery to discuss possible hernia repair. I will discuss strict return instructions with patient. He is receiving 10 mill equivalents of potassium IV at this time. We will give him an additional 20 mill equivalents of potassium p.o. for potassium level 2.8. This does seem appropriate as patient was able to tolerate p.o. today without any additional vomiting. Will send patient home with some dicyclomine for stomach cramping, Carafate and Zofran as needed for nausea, vomiting, diarrhea. Will discuss to return to the ER for any continued nausea vomiting not relieved by medications, worsening abdominal pain or any concerns. Patient has tolerated p.o. potassium without any additional vomiting. Patient is much improved feels better discussed follow-up care with patient and family who verbalized understanding. This text was generated using OneShieldation system, please disregard any odd ities of phrase or misspellings. Medical Records Medical records reviewed: Yes I reviewed the patient's medical records. Imaging Data Radiologic Study: Imaging: CT Scan Radiologist's impression: IMPRESSION: Enteritis/ileus suspected. No sharp transition point to suggest mechanical obstruction Moderate fat containing periumbilical hernia without CT evidence for incarceration Indeterminate cystic/tubular structure in the expected location of the seminal vesicles. Differential possibilities include cystic lesions versus obstructed ejaculatory duct. Consider nonurgent urology consultation Thank you for allowing us to participate in the care of your patient. Dictated and Authenticated by: Gómez Mejia MD Lab Data Lab results reviewed: Yes I reviewed the patient's lab results. Labs: Laboratory Tests Range/Units 04/28/22 04/28/22 04/28/22 17:08 17:08 17:12 WBC (4.4-10.8) 10^3/uL 11.58 H RBC (4.36-5.78) 10^6/uL 5.82 H Hgb (13.5-17.5) g/dL 16.4 Hct (40.0-50.0) % 47.6 MCV (80-95) fL 82 MCH (27.0-33.0) pg 28.2 MCHC (32.0-36.0) % 34.5 RDW (11.8-14.1) % 12.9 Plt Count (130-400) 10^3/uL 346 MPV (8.0-11.0) fL 9.3 Immature Gran % 0.4 Neutrophils % 68.0 Lymphocytes % 21.8 Monocytes % 8.7 Eosinophils % 0.6 Basophils % 0.5 Nucleated RBC % (0.0-0.3) % 0.0 Absolute Neutrophils (1.2-6.7) 10^3/uL 7.87 H Absolute Lymphocytes (1.2-3.4) 10^3/uL 2.52 Absolute Monocytes (0.1-0.8) 10^3/uL 1.01 H Absolute Eosinophils (0.0-0.7) 10^3/uL 0.07 Absolute Basophils (0.0-0.2) 10^3/uL 0.06 VBG Lactate Sodium (136-145) mmol/L 139 Potassium (3.5-5.1) mmol/L 2.8 L* Chloride (98-107) mmol/L 101 Carbon Dioxide (21.0-32.0) mmol/L 29.1 Anion Gap (3-11) mmol/L 8.9 BUN (7-18) mg/dL 14 Creatinine (0.70-1.30) mg/dL 0.9 Est GFR (CKD-EPI 2020) (mL/min/1.73m2) 108.68 Glucose (74-106) mg/dL 111 H Calcium (8.5-10.1) mg/dL 9.6 Magnesium (1.8-2.4) mg/dL 2.1 Total Bilirubin (0.2-1.0) mg/dL 0.9 AST (15-37) U/L 29 ALT (16-63) U/L 103 H Alkaline Phosphatase (46-116) U/L 88 Total Protein (6.4-8.2) g/dL 8.5 H Albumin (3.4-5.0) g/dL 3.7 Lipase (73-393) U/L 101 Urine Color (Yellow) Urine Clarity (Clear) Urine pH (5-8) Ur Specific Chapman (1.005-1.025) Urine Protein (Negative) mg/dL Urine Ketones (Negative) mg/dL Urine Blood (Negative) Urine Nitrite (Negative) Urine Bilirubin (Negative) Urine Urobilinogen (Up TO 0.2) EU/dL Ur Leukocyte Esterase (Negative) Urine Glucose (Negative) mg/dL Urine Opiates Screen (Negative) Urine Methadone Screen (Negative) Ur Barbiturates Screen (Negative) Ur Tricyclics Screen (Negative) Ur Amphetamines Screen (Negative) U Benzodiazepines Scrn (Negative) Urine Cocaine Screen (Negative) Ur THC Screen (Negative) Add-On Test Request TNP Range/Units 04/28/22 04/28/22 04/28/22 17:30 17:40 18:24 WBC (4.4-10.8) 10^3/uL RBC (4.36-5.78) 10^6/uL Hgb (13.5-17.5) g/dL Hct (40.0-50.0) % MCV (80-95) fL MCH (27.0-33.0) pg MCHC (32.0-36.0) % RDW (11.8-14.1) % Plt Count (130-400) 10^3/uL MPV (8.0-11.0) fL Immature Gran % Neutrophils % Lymphocytes % Monocytes % Eosinophils % Basophils % Nucleated RBC % (0.0-0.3) % Absolute Neutrophils (1.2-6.7) 10^3/uL Absolute Lymphocytes (1.2-3.4) 10^3/uL Absolute Monocytes (0.1-0.8) 10^3/uL Absolute Eosinophils (0.0-0.7) 10^3/uL Absolute Basophils (0.0-0.2) 10^3/uL VBG Lactate Cancelled 1.5 H Sodium (136-145) mmol/L Potassium (3.5-5.1) mmol/L Chloride (98-107) mmol/L Carbon Dioxide (21.0-32.0) mmol/L Anion Gap (3-11) mmol/L BUN (7-18) mg/dL Creatinine (0.70-1.30) mg/dL Est GFR (CKD-EPI 2020) (mL/min/1.73m2) Glucose (74-106) mg/dL Calcium (8.5-10.1) mg/dL Magnesium (1.8-2.4) mg/dL Total Bilirubin (0.2-1.0) mg/dL AST (15-37) U/L ALT (16-63) U/L Alkaline Phosphatase (46-116) U/L Total Protein (6.4-8.2) g/dL Albumin (3.4-5.0) g/dL Lipase (73-393) U/L Urine Color (Yellow) Urine Clarity (Clear) Urine pH (5-8) Ur Specific Chapman (1.005-1.025) Urine Protein (Negative) mg/dL Urine Ketones (Negative) mg/dL Urine Blood (Negative) Urine Nitrite (Negative) Urine Bilirubin (Negative) Urine Urobilinogen (Up TO 0.2) EU/dL Ur Leukocyte Esterase (Negative) Urine Glucose (Negative) mg/dL Urine Opiates Screen (Negative) Negative Urine Methadone Screen (Negative) Negative Ur Barbiturates Screen (Negative) Negative Ur Tricyclics Screen (Negative) Negative Ur Amphetamines Screen (Negative) Negative U Benzodiazepines Scrn (Negative) Negative Urine Cocaine Screen (Negative) Negative Ur THC Screen (Negative) Positive A Add-On Test Request Range/Units 04/28/22 18:24 WBC (4.4-10.8) 10^3/uL RBC (4.36-5.78) 10^6/uL Hgb (13.5-17.5) g/dL Hct (40.0-50.0) % MCV (80-95) fL MCH (27.0-33.0) pg MCHC (32.0-36.0) % RDW (11.8-14.1) % Plt Count (130-400) 10^3/uL MPV (8.0-11.0) fL Immature Gran % Neutrophils % Lymphocytes % Monocytes % Eosinophils % Basophils % Nucleated RBC % (0.0-0.3) % Absolute Neutrophils (1.2-6.7) 10^3/uL Absolute Lymphocytes (1.2-3.4) 10^3/uL Absolute Monocytes (0.1-0.8) 10^3/uL Absolute Eosinophils (0.0-0.7) 10^3/uL Absolute Basophils (0.0-0.2) 10^3/uL VBG Lactate Sodium (136-145) mmol/L Potassium (3.5-5.1) mmol/L Chloride (98-107) mmol/L Carbon Dioxide (21.0-32.0) mmol/L Anion Gap (3-11) mmol/L BUN (7-18) mg/dL Creatinine (0.70-1.30) mg/dL Est GFR (CKD-EPI 2020) (mL/min/1.73m2) Glucose (74-106) mg/dL Calcium (8.5-10.1) mg/dL Magnesium (1.8-2.4) mg/dL Total Bilirubin (0.2-1.0) mg/dL AST (15-37) U/L ALT (16-63) U/L Alkaline Phosphatase (46-116) U/L Total Protein (6.4-8.2) g/dL Albumin (3.4-5.0) g/dL Lipase (73-393) U/L Urine Color (Yellow) Yellow Urine Clarity (Clear) Clear Urine pH (5-8) 7.5 Ur Specific Chapman (1.005-1.025) 1.020 Urine Protein (Negative) mg/dL Negative Urine Ketones (Negative) mg/dL Negative Urine Blood (Negative) Negative Urine Nitrite (Negative) Negative Urine Bilirubin (Negative) Negative Urine Urobilinogen (Up TO 0.2) EU/dL 1.0 H Ur Leukocyte Esterase (Negative) Negative Urine Glucose (Negative) mg/dL Negative Urine Opiates Screen (Negative) Urine Methadone Screen (Negative) Ur Barbiturates Screen (Negative) Ur Tricyclics Screen (Negative) Ur Amphetamines Screen (Negative) U Benzodiazepines Scrn (Negative) Urine Cocaine Screen (Negative) Ur THC Screen (Negative) Add-On Test Request HPI General Mode of arrival: ambulatory . Date/Time Provider Initiated Documentation: 04/28/22 16:57 . Limitations to Documentation: no limitations . Information obtained by: RN notes reviewed and old records reviewed . HPI Narrative: 42-year-old male with a past medical history of ADHD, depression, hypertension, asthma hepatitis C and opioid use disorder in remission presents to the ER with a chief complaint of abdominal pain left upper quadrant and periumbilical which began on Tuesday, reports nausea vomiting and diarrhea on Tuesday. He reports that he is no longer vomiting however the diarrhea remains. He reports 5 episodes of loose diarrhea a day. He does have a history of umbilical hernia which has never been repaired. He reports that he thinks it is more purple and tender with palpation. Patient was seen by PCP in the clinic today and was referred here for further eval. Related Data Home Medications Medication Instructions Recorded Confirmed naloxone 4 mg/actuation nasal spray 1 spray intranasal ONCE PRN opioid 08/21/18 04/28/22 overdose #2 ea cetirizine 10 mg tablet 10 mg PO DAILY #90 tabs 05/12/21 04/28/22 lisinopril 20 1 tab PO DAILY #90 tabs 05/12/21 04/28/22 mg-hydrochlorothiazide 25 mg tablet citalopram 20 mg tablet See Rx Instructions .Route 08/12/21 04/28/22 .COMPLEX #90 tabs fluticasone propionate 50 See Rx Instructions .Route 09/15/21 04/28/22 mcg/actuation nasal .COMPLEX #16 grams spray,suspension buspirone 5 mg tablet See Rx Instructions .Route 10/12/21 04/28/22 .COMPLEX #180 tabs albuterol sulfate 90 mcg/actuation 1 - 2 puff inhalation Q4H PRN 03/19/22 04/28/22 aerosol inhaler (ProAir HFA) bronchospasm #17 grams budesonide-formoterol HFA 160 See Rx Instructions .Route 03/19/22 04/28/22 mcg-4.5 mcg/actuation aerosol .COMPLEX #30.6 grams inhaler (Symbicort) naltrexone 50 mg tablet 50 mg PO DAILY #30 tabs 04/19/22 04/28/22 dicyclomine 20 mg tablet 20 mg PO TID PRN stomach upset #14 04/28/22 tabs sucralfate 100 mg/mL oral 10 ml PO QACHS PRN stomach upset 7 04/28/22 suspension (Carafate) days #414 mL Previous Rx's Medication Instructions Recorded naloxone 4 mg/actuation nasal spray 1 spray intranasal ONCE PRN opioid 08/21/18 overdose #2 ea cetirizine 10 mg tablet 10 mg PO DAILY #90 tabs 05/12/21 lisinopril 20 1 tab PO DAILY #90 tabs 05/12/21 mg-hydrochlorothiazide 25 mg tablet citalopram 20 mg tablet See Rx Instructions .Route 08/12/21 .COMPLEX #90 tabs fluticasone propionate 50 See Rx Instructions .Route 09/15/21 mcg/actuation nasal .COMPLEX #16 grams spray,suspension buspirone 5 mg tablet See Rx Instructions .Route 10/12/21 .COMPLEX #180 tabs albuterol sulfate 90 mcg/actuation 1 - 2 puff inhalation Q4H PRN 03/19/22 aerosol inhaler (ProAir HFA) bronchospasm #17 grams budesonide-formoterol HFA 160 See Rx Instructions .Route 03/19/22 mcg-4.5 mcg/actuation aerosol .COMPLEX #30.6 grams inhaler (Symbicort) naltrexone 50 mg tablet 50 mg PO DAILY #30 tabs 04/19/22 dicyclomine 20 mg tablet 20 mg PO TID PRN stomach upset #14 04/28/22 tabs sucralfate 100 mg/mL oral 10 ml PO QACHS PRN stomach upset 7 04/28/22 suspension (Carafate) days #414 mL Allergies Allergy/AdvReac Type Severity Reaction Status Date / Time Opioids - Morphine Analogues AdvReac Unknown (h/o Verified 04/19/22 09:17 addiction; wants to avoid where possible) dust Allergy Mild unknown Uncoded 04/19/22 09:17 hay Allergy Mild unknown Uncoded 04/19/22 09:17 pollen Allergy Mild unknown Uncoded 04/19/22 09:17 animal dander Allergy Unknown unknown Uncoded 04/19/22 09:17 General Stated Complaint: Abd Prob ASHTYN: 3 Review of Systems All systems reviewed & are unremarkable except as noted in HPI and below Gastrointestinal Gastrointestinal: Reports abdominal pain, Reports diarrhea, Reports nausea and Reports vomiting [facility] All Active Problems (Updated 04/28/22 @ 20:16 by Farnaz Turk NP) Nausea vomiting and diarrhea (Acute) Hernia, umbilical (Acute) Gastroenteritis (Acute) Chronic hepatitis C (Acute ~2017) s/p [facility] GI treatment 2018 Cocaine use disorder, severe, dependence (Acute) Opioid use disorder, severe, dependence (Acute) History of hepatitis C (Chronic ~2017) ADHD (attention deficit hyperactivity disorder) (Chronic ~11/2020) [facility] Psychiatry started adderall 11/2020 Multiple substance abuse (Chronic ~2014) Opioids (fentanyl, heroin, IVDA), cocaine 2015: [place], heroin,cocaine 05/18/17- 05/24/17: [place] [facility] with discharge to [facility] (IV Fentanyl,IV cocaine) 10/2018: [facility] early 2020: Relapse cocaine & fentanyl 02/2020: [facility]/Methadone 03/2022: [facility] Depression (Chronic 03/08/16) [facility] Psychiatry 02/09/16 PHQ-9 score 15 mod severe Citalopram, stopped secondary to sexual side effects; resumed 04/2018 Solitary right kidney (Chronic ~2017) Incidental finding on CT 11/2017 [facility] Nicotine dependence (Chronic) Essential hypertension (Chronic 01/07/14) Dx: 01/2014, RX Losartan & lifestyle Losartan dc'ed 02/2016 due to ins, changed to Lisinopril 07/2016: Higher-dose Lisinopril (20mg) caused GI probs, changed to Lisinopril- HCTZ 10-12.5mg Asthma (Chronic 11/26/13) PFTs 12/10/2013 severe obstructive disease & 11/2021-->airflow obstruction Medical History Allergic rhinitis (11/26/13) Cannabis use disorder, severe, dependence Cellulitis of arm, right (~02/2022) IVDA De Quervain's disease (radial styloid tenosynovitis) (09/06/16) Right Ortho+Mobic+Splint Intravenous drug abuse, episodic (07/04/17) IV Fentanyl and Cocaine 2018: [place] admission followed by [facility] 2020: Relapse 02/2020: [facility] with Methadone treatment Opioid dependence in remission (02/09/16) Heroin--IVDA [facility] 2014, then relapse, 2016 on Methadone 2017--IVDA (Fentanyl & Cocaine); [facility] [place] followed by [facility]; discharge on Earnest, Clonidine Surgical History [place] teeth extracted Family History Mother Hyperlipidemia Substance abuse nicotine, EtOH Father No problems noted. 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 Appears stated age. Normal body habitus. Head: Normocephalic, no trauma. Eyes: Pupils PERRL, Red reflex noted, EOM's intact. Eyelids symmetrical without lesions, discharge, or swelling. ENT: Bilateral TM's WNL, External ear normal to inspection, no mastoid TTP, swelling, or erythema, Nasal turbinates WNL, no nasal discharge. Normal dentition, Posterior pharynx WNL, no exudate. Chest: RRR, Normal S1, S2, distal pulses intact. Resp: Lungs clear to auscultation bilaterally, no wheezes, rales, or rhonchi. Abdomen: Soft, distended, hyperactive bowel sounds all 4 quads. Tender with palpation left upper quadrant and periumbilical. There is a umbilical hernia approximately 3 cm x 3 cm with slight ecchymosis noted, unable to manually reduce. Musculoskeletal: Normal gait, 5/5 strength to all four extremities. Skin: No suspicious rashes or lesions. Capillary refill less than 2 sec. Neurologic: Cranial nerves II-XII intact. Alert and oriented x 3. Motor: No deficits noted. Sensory: Intact bilaterally all 4 extremities. Hematologic/Lymphatic: No ecchymosis, no lymphadenopathy. Course Vital Signs Vital signs: Vital Signs Temperature 36.8 C 04/28/22 16:53 Pulse 76 04/28/22 16:53 Respiratory Rate 18 04/28/22 16:53 Blood Pressure 170/94 H 04/28/22 16:53 Pulse Oximetry 99 04/28/22 16:53 Temperature 36.8 C 04/28/22 16:53 Temperature Source Tympanic 04/28/22 16:53 Pulse 76 04/28/22 16:53 Respiratory Rate 18 04/28/22 16:53 Respiratory Effort 04/28/22 16:56 Blood Pressure 170/94 H 04/28/22 16:53 Blood Pressure Position Supine 04/28/22 16:53 Pulse Oximetry 99 04/28/22 16:53 Oxygen Delivery Method Room Air 04/28/22 16:53 Oxygen Flow Rate 0 04/28/22 16:53 Pain Level 4 04/28/22 16:53
[2022-04-28 17:18] LABS: Abs Immature Grans 0.05 10^3/uL (0.0-0.06); Absolute Basophil Count 0.06 10^3/uL (0.0-0.2); Absolute Eosinophil Count 0.07 10^3/uL (0.0-0.7); Absolute Monocyte Count 1.01 10^3/uL (0.1-0.8); Basophils % 0.5; Eosinophils % 0.6; HCT 47.6 % (40.0-50.0); HGB 16.4 g/dL (13.5-17.5); Immature Grans % 0.4; Lymphocytes % 21.8; MCH 28.2 pg (27.0-33.0); MCHC 34.5 % (32.0-36.0); MCV 82 fL (80-95); MPV 9.3 fL (8.0-11.0); Monocytes % 8.7; Platelet Count 346 10^3/uL (130-400); RBC 5.82 10^6/uL (4.36-5.78); RDW 12.9 % (11.8-14.1); RDW-SD 38.2 fL; WBC 11.58 10^3/uL (4.4-10.8)
[2022-04-28 17:23] LABS: Absolute Lymphocyte Count 2.52 10^3/uL (1.2-3.4); Absolute Neutrophil Count 7.87 10^3/uL (1.2-6.7)
[2022-04-28] MEDS: Normal Saline 1,000 ML 1000 ML IV (17:32)
[2022-04-28 17:33] LABS: ALT 103 U/L (16-63); AST 29 U/L (15-37); Albumin 3.7 g/dL (3.4-5.0); Alkaline Phosphatase 88 U/L (46-116); Anion Gap 8.9 mmol/L (3-11); BUN 14 mg/dL (7-18); Bilirubin, Total 0.9 mg/dL (0.2-1.0); CO2 29.1 mmol/L (21.0-32.0); CREATININE 0.9 mg/dL (0.70-1.30); Calcium 9.6 mg/dL (8.5-10.1); Chloride 101 mmol/L (98-107); Estimated GFR 108.68 (mL/min/1.73m2); Glucose 111 mg/dL (74-106); Lipase 101 U/L (73-393); Magnesium 2.1 mg/dL (1.8-2.4); Sodium 139 mmol/L (136-145); Total Protein 8.5 g/dL (6.4-8.2)
[2022-04-28 17:35] LABS: Potassium 2.8 mmol/L (3.5-5.1)
[2022-04-28 17:46] LABS: Lactate 1.5 mmol/L (0.6-1.4)
[2022-04-28 18:31] LABS: Bilirubin Negative (Negative); Blood Negative (Negative); Clarity Clear (Clear); Glucose Negative (Negative); Ketones Negative (Negative); Leukocyte Esterase Negative (Negative); Nitrite Negative (Negative); pH 7.5 (5-8)
[2022-04-28 18:43] LABS: *AMPHETAMINES SCREEN URINE Negative (Negative); *BARBITURATES SCREEN URINE Negative (Negative); *BENZODIAZEPINES SCREEN URINE Negative (Negative); Cannabinoids THC Positive (Negative); Cocaine Screen,Urine Negative (Negative); METHADONE URINE SCREEN Negative (Negative); OPIATES URINE SCREEN Negative (Negative)
[2022-04-28] MEDS: POTASSIUM CHLORIDE 10 MEQ/100 ML BAG 100 MEQ IVPB (18:44)
[2022-04-28 18:46] LABS: Tricyclic Antidepressants Negative (Negative)
[2022-04-28] MEDS: Normal Saline 1,000 ML 300 ML IV (19:00)
[2022-04-28] MEDS: Omnipaque 350 MG/ML 100 ML BTL IJ (19:11)
[2022-04-28] MEDS: Normal Saline - Diluent 50 ML VIAL IJ (19:12)
--- NOTE | 2022-04-28 19:37 | DI.VRAD_ITS ---
PROCEDURE INFORMATION: Exam: CT Abdomen And Pelvis With Contrast Exam date and time: 04/28/2022 7:09 PM Age: 42 years old Clinical indication: Abdominal pain; Generalized; Additional info: Abd pain, diarrhea, HX of hernia TECHNIQUE: Imaging protocol: Computed tomography of the abdomen and pelvis with contrast. Radiation optimization: All CT scans at this facility use at least one of these dose optimization techniques: automated exposure control; mA and/or kV adjustment per patient size (includes targeted exams where dose is matched to clinical indication); or iterative reconstruction. Contrast material: OMNI 350; Contrast volume: 100 ml; Contrast route: INTRAVENOUS (IV); COMPARISON: US ABDOMEN ULTRASOUND (P) 06/09/2016 3:27 PM FINDINGS: Liver: Hepatomegaly and diffuse fatty infiltration. No mass. Gallbladder and bile ducts: Normal. No calcified stones. No ductal dilation. Pancreas: Normal. No ductal dilation. Spleen: Normal. No splenomegaly. Adrenal glands: Normal. No mass. Kidneys and ureters: Solitary right kidney No hydronephrosis. Stomach and bowel: Abnormally thickened small bowel loops with fluid noted within. Mild duodenal dilatation. No sharp transition point. Fluid in the ascending and transverse portions of the colon Appendix: No evidence of appendicitis. Intraperitoneal space: Unremarkable. No free air. No significant fluid collection. Vasculature: Unremarkable. No abdominal aortic aneurysm. Lymph nodes: Unremarkable. No enlarged lymph nodes. Urinary bladder: Unremarkable as visualized. Reproductive: Dilated fluid-filled structure noted superior to the prostate gland Bones/joints: Unremarkable. No acute fracture. Soft tissues: Moderate fat containing periumbilical hernia IMPRESSION: Enteritis/ileus suspected. No sharp transition point to suggest mechanical obstruction Moderate fat containing periumbilical hernia without CT evidence for incarceration Indeterminate cystic/tubular structure in the expected location of the seminal vesicles. Differential possibilities include cystic lesions versus obstructed ejaculatory duct. Consider nonurgent urology consultation Dictated and Authenticated by: Gómez Mejia MD. Ordering:KEARA Osei MD
[2022-04-28] MEDS: Potassium Chloride Liquid 20 MEQ PKT PO (20:14)
[2022-04-28 20:28] VITALS: BP 166/96; PULSE 67; TEMP 36.7; O2SAT 98
[2022-04-28 20:30] VITALS: BP 166/96; PULSE 67; RESP 18; TEMP 36.7; O2SAT 98
--- NOTE | 2022-04-29 12:03 | NUR.NOTE ---
Addendum entered by Tiffany Victoria 04/29/22 12:14: Referral faxed to [facility] for reassessment surgery likely enteritis/lg hernia; this week. Original Note: Nursing Note: Referral faxed to [facility] Urology for cystic lesion on CT, to be seen in 2 weeks.
--- NOTE | 2022-04-29 20:16 | ED.FU.B_ITS ---
Date of service: 04/29/22 Time of Service: 20:18 Follow Up Plan: CT of the abdomen pelvis was interpreted by radiology:IMPRESSION: 1. There are numerous dilated and circumferentially edematous small bowel loops either representing inflammatory process/enteritis or possibly an element of bowel obstruction given the moderate size anterior abdominal wall hernia here (which does not itself contain bowel loops)..? The colon is not collapsed. 2. Abnormal large cystic mass in the deep pelvis which appears replaced prostate gland, this measuring 10 x 7 x 7.5 cm.? This indents and deviates the urinary bladder anteriorly. 3. No obvious adenopathy evident.? Incidentally noted is a solitary right kidney and solitary right adrenal gland. I called and spoke with on-call surgeon, Dr. Torres and discussed updated CT findings. She recommends outpatient follow-up as previously planned. I have as ked that care management assist in arranging timely follow-up with surgery as well as with urology.
[2022-04-30 09:42] LABS: Hepatitis A Antibody IgM Negative (Negative); Hepatitis B Core Antibody Negative (Negative); Hepatitis B surface Ag Negative (Negative); Hepatitis C Ab w Rflx HCV PCR Reactive (Negative)
[2022-05-03 11:30] LABS: HCV RNA Detection Quantitative 86100 IU/mL (Undetected); HCV RNA Qualitative Detected (Undetected)
[2022-05-19 13:27] LABS: Lab Add On Test DONE
== END 2022-04-28 20:37 | disposition home or self-care (01) ==
PROVIDERS: Emergency Provider Registered Nurse Emergency; PCP Nurse Practitioner Adult Health
DX: K42.9 Umbilical hernia without obstruction or gangrene (principal); K52.9 Noninfective gastroenteritis and colitis, unspecified; I10 Essential (primary) hypertension; J45.909 Unspecified asthma, uncomplicated; D72.829 Elevated white blood cell count, unspecified; R58 Hemorrhage, not elsewhere classified; Z79.51 Long term (current) use of inhaled steroids
CPT/HCPCS: 80053; 80307; 83690; 86704; 86709; 86803; 87340; 87522; 96361; 96365; 96375; 99285; 74177; 81003; 83605; 83735; 85025; 99284; J3480; J3490

== ENCOUNTER 2022-05-04 15:35 | Outpatient (CLI) | payer MEDICAID, SELFPAY ==
[2022-05-04 14:54] LABS: Abs Immature Grans 0.04 10^3/uL (0.0-0.06); Absolute Basophil Count 0.04 10^3/uL (0.0-0.2); Absolute Eosinophil Count 0.23 10^3/uL (0.0-0.7); Absolute Lymphocyte Count 2.71 10^3/uL (1.2-3.4); Absolute Monocyte Count 1.27 10^3/uL (0.1-0.8); Absolute Neutrophil Count 6.06 10^3/uL (1.2-6.7); Basophils % 0.4; Eosinophils % 2.2; HCT 39.9 % (40.0-50.0); HGB 13.4 g/dL (13.5-17.5); Immature Grans % 0.4; Lymphocytes % 26.2; MCH 28.9 pg (27.0-33.0); MCHC 33.6 % (32.0-36.0); MCV 86 fL (80-95); MPV 9.3 fL (8.0-11.0); Monocytes % 12.3; Neutrophils % 58.5; Platelet Count 273 10^3/uL (130-400); RBC 4.63 10^6/uL (4.36-5.78); RDW 13.3 % (11.8-14.1); RDW-SD 41.6 fL; WBC 10.35 10^3/uL (4.4-10.8)
[2022-05-04 16:10] LABS: ALT 128 U/L (16-63); AST 77 U/L (15-37); Albumin 3.4 g/dL (3.4-5.0); Alkaline Phosphatase 78 U/L (46-116); Anion Gap 9.5 mmol/L (3-11); BUN 44 mg/dL (7-18); Bilirubin, Total 0.4 mg/dL (0.2-1.0); C-Reactive Protein 3.35 mg/dL (0.0-0.3); CO2 27.5 mmol/L (21.0-32.0); CREATININE 1.8 mg/dL (0.70-1.30); Calcium 9.4 mg/dL (8.5-10.1); Chloride 101 mmol/L (98-107); Estimated GFR 47.31 (mL/min/1.73m2); GGT 35 U/L (15-85); Glucose 160 mg/dL (74-106); Potassium 3.3 mmol/L (3.5-5.1); Sodium 138 mmol/L (136-145); Total Protein 7.3 g/dL (6.4-8.2)
[2022-05-04 16:20] LABS: *AMPHETAMINES SCREEN URINE Negative (Negative); *BARBITURATES SCREEN URINE Negative (Negative); *BENZODIAZEPINES SCREEN URINE Negative (Negative); Cannabinoids THC Negative (Negative); Cocaine Screen,Urine Negative (Negative); METHADONE URINE SCREEN Negative (Negative); OPIATES URINE SCREEN Negative (Negative)
[2022-05-04 16:26] LABS: Tricyclic Antidepressants Negative (Negative)
[2022-05-06 11:08] LABS: Cotinine 54 ng/mL (<3.0); Nicotine <3.0 ng/mL (<3.0)
== END 2022-05-04 15:36 | disposition home or self-care (01) ==
LOC: LBO 15:36
PROVIDERS: PCP Nurse Practitioner Adult Health; Visit Provider Surgery
DX: B18.2 Chronic viral hepatitis C (principal); I10 Essential (primary) hypertension; F11.20 Opioid dependence, uncomplicated; F14.20 Cocaine dependence, uncomplicated; F17.210 Nicotine dependence, cigarettes, uncomplicated; F19.10 Other psychoactive substance abuse, uncomplicated; F90.9 Attention-deficit hyperactivity disorder, unspecified type; Z86.19 Personal history of other infectious and parasitic diseases
CPT/HCPCS: 36415; 80053; 80307; 80323; 82977; 85025; 86140

== ENCOUNTER 2022-05-25 13:24 | Emergency (ER) | payer MEDICAID, SELFPAY ==
[2022-05-25 13:26] VITALS: BP 117/61; PULSE 94; RESP 17; TEMP 36.6; O2SAT 95
--- NOTE | 2022-05-25 14:15 | RT.EKG_ITS ---
APPROVED REPORT Exam: Resting ECG Reason for Exam: Shortness of breath Patient Location: E HR:78 bpm ECG Measurements Heart Rate 78 AXIS WY 115 P 37 QRSd 96 QRS -14 QT 365 T 30 QTc 418 Conclusion Sinus rhythm...normal P axis, V-rate 60- 99 Narrow complex normal sinus rhythm at a rate of 78. Normal axis. Intervals within normal limits. L eft axis deviation no signs of LVH based on voltage criteria. T wave flattening in lead III. No era or for comparison.
[2022-05-25 14:27] LABS: Abs Immature Grans 0.03 10^3/uL (0.0-0.06); Absolute Basophil Count 0.03 10^3/uL (0.0-0.2); Absolute Eosinophil Count 0.39 10^3/uL (0.0-0.7); Absolute Lymphocyte Count 1.22 10^3/uL (1.2-3.4); Absolute Monocyte Count 0.76 10^3/uL (0.1-0.8); Absolute Neutrophil Count 5.59 10^3/uL (1.2-6.7); Basophils % 0.4; Eosinophils % 4.9; HGB 11.9 g/dL (13.5-17.5); Immature Grans % 0.4; Lactate 1.2 mmol/L (0.6-1.4); Lymphocytes % 15.2; MCH 28.7 pg (27.0-33.0); MCHC 32.2 % (32.0-36.0); MCV 89 fL (80-95); MPV 9.2 fL (8.0-11.0); Monocytes % 9.5; Neutrophils % 69.6; Platelet Count 224 10^3/uL (130-400); RBC 4.14 10^6/uL (4.36-5.78); RDW 14.2 % (11.8-14.1); RDW-SD 46.4 fL; WBC 8.02 10^3/uL (4.4-10.8)
[2022-05-25 14:29] LABS: ESR 24 mm/hr (0-15)
[2022-05-25] MEDS: Cephalexin 500 MG CAP PO (14:33)
[2022-05-25] MEDS: Sulfameth/Trimeth DS TAB 1 TAB PO (14:33)
--- NOTE | 2022-05-25 14:45 | ED.GENADUL_ITS ---
Discharge Plan Disposition Patient Disposition: Home Condition: Stable Discharge Details Clinical Impression: Cellulitis Primary Care Provider: Amanda Ny ED Provider: Esvin Yoon Home Meds and New Rx's Prescriptions: New cephalexin 500 mg tablet 500 mg PO QID 5 Days Qty: 20 0RF sulfamethoxazole-trimethoprim [Bactrim DS] 800-160 mg tablet 1 tab PO BID Qty: 10 0RF Continued albuterol sulfate [ProAir HFA] 90 mcg/actuation HFA aerosol inhaler 1 - 2 puff Inhalation Q4H MDD 24 inh/day PRN (Reason: bronchospasm) Qty: 17 3RF Rx Instructions: DX: ASTHMA Equivalent Ventolin may be substituted or other albuterol; if able, please dispense 2 inhalers at a time budesonide-formoterol [Symbicort] 160-4.5 mcg/actuation HFA aerosol inhaler See Rx Instructions .ROUTE .COMPLEX Qty: 30.6 3RF Dose Instruction: INHALE 2 PUFFS BY MOUTH TWICE DAILY FOR ASTHMA Rx Instructions: INHALE 2 PUFFS BY MOUTH TWICE DAILY FOR ASTHMA naltrexone 50 mg tablet 50 mg PO DAILY Qty: 30 0RF lisinopril-hydrochlorothiazide 20-25 mg tablet 1 tab PO DAILY Qty: 90 3RF cetirizine 10 mg tablet 10 mg PO DAILY Qty: 90 3RF Rx Instructions: DX: RUNNY NOSE AND ASTHMA citalopram 20 mg tablet See Rx Instructions .ROUTE .COMPLEX Qty: 90 3RF Dose Instruction: TAKE 1 TABLET BY MOUTH DAILY Rx Instructions: TAKE 1 TABLET BY MOUTH DAILY fluticasone propionate 50 mcg/actuation spray,suspension See Rx Instructions .ROUTE .COMPLEX Qty: 16 4RF Dose Instruction: SHAKE LIQUID AND USE 1 TO 2 SPRAYS IN EACH NOSTRIL DAILY NEEDED FOR ALLERGY SYMPTOMS Rx Instructions: SHAKE LIQUID AND USE 1 TO 2 SPRAYS IN EACH NOSTRIL DAILY NEEDED FOR ALLERGY SYMPTOMS buspirone 5 mg tablet See Rx Instructions .ROUTE .COMPLEX Qty: 180 3RF Dose Instruction: TAKE 2 TABLETS BY MOUTH ONCE DAILY FOR ANXIETY Rx Instructions: TAKE 2 TABLETS BY MOUTH ONCE DAILY FOR ANXIETY naloxone 4 mg/actuation spray,non-aerosol 1 spray ARCHANA ONCE PRN (Reason: opioid overdose) Qty: 2 0RF dicyclomine 20 mg tablet 20 mg PO TID PRN (Reason: stomach upset) Qty: 14 0RF Rx Instructions: Take 1 tablet up to 3 times daily as needed for stomach cramps or stomach upset Discharge Instructions Instructions: Cellulitis (ED) Additional Instructions: You may continue to take your medications as prescribed and please take antibiot ics in addition to your normal daily medications. Monitor symptoms and return the emergency department for any significant worsening of symptoms otherwise you should see signs of improvement in the next 24 to 48 hours. We have placed a referral to your primary care provider to see them preferably in the next 3 days for wound recheck. We will contact you if your blood cultures show any further results that need a change in antibiotics or return to the emergency department. Referrals: Amanda Ny NP [Primary Care Provider] - 3 days Discharge Data Discharge Date/Time-TO BE ENTERED AT DEPARTURE: 05/25/22 15:46 Medical Decision Making Patient presenting to the emergency department for chief complaint of wounds to the right lower extremity and left shoulder. Patient states that he had small scabs that he has been picking at that seem to become infected. Patient does have history of IV drug use which she stated he used 4 days ago but these open sores started a week ago with worsening over the past 48 hours. Patient denies any fever chills, does state chronic and unchanged shortness of breath due to cigarette use, denies chest pain or other constitutional symptoms. Review of vital signs are stable, physical exam shows open wound with erythema and surrounding edema to the right lower extremity, there is erythema and slight drainage noted from left shoulder. Not consistent with abscess but consistent with cellulitis. Given patient's review sent IV drug use will perform EKG, and labs but at this time I doubt endocarditis. We will still draw blood cultures though. Pending results will give Keflex and Bactrim p.o. as patient is otherwise stable and suspect outpatient discharge. Reviewed labs and patient does have mild anemia with hemoglobin of 11.9 otherwise no significant or severe leukocytosis and shift, ESR slightly elevated at 24, CRP elevated at 3.78, patient's lactate is within normal range of 1.2, CMP does otherwise show elevated glucose 177 and elevation of AST and ALT with normal total bilirubin and alk phos. I do feel labs are reassuring at this time and blood cultures are pending. Patient will be discharged on Keflex and Bactrim and patient along with mother state clear understanding to return if not seeing signs of improvement or any worsening of condition occurs. After discussion of diagnosis and plan of care patient has no further needs, questions, or concerns and states clear understanding to return to the emergency department for any worsening symptoms. This documentation was generated using [email or web address] system, please disregard any oddities of phrase or misspellings. Lab Data Lab results reviewed: Yes I reviewed the patient's lab results. HPI General Mode of arrival: ambulatory . Date/Time Provider Initiated Documentation: 05/25/22 13:27 . Limitations to Documentation: no limitations . Information obtained by: patient, family and RN notes reviewed . History of Present Illness 42 year old M presents to the emergency department with the chief complaint of Skin infection to lower extremity and left shoulder, described as moderate and similar to prior episodes, Quality is described as aching, Patient reports no radiation. and it has been constant. No relieving factors improve symptom(s), Other factors that worsen symptoms (Picking and scratching) . Patient notes no other symptoms.. Related Data Home Medications Medication Instructions Recorded Confirmed naloxone 4 mg/actuation nasal spray 1 spray intranasal ONCE PRN opioid 08/21/18 05/25/22 overdose #2 ea cetirizine 10 mg tablet 10 mg PO DAILY #90 tabs 05/12/21 05/25/22 lisinopril 20 1 tab PO DAILY #90 tabs 05/12/21 05/25/22 mg-hydrochlorothiazide 25 mg tablet citalopram 20 mg tablet See Rx Instructions .Route 08/12/21 05/25/22 .COMPLEX #90 tabs fluticasone propionate 50 See Rx Instructions .Route 09/15/21 05/25/22 mcg/actuation nasal .COMPLEX #16 grams spray,suspension buspirone 5 mg tablet See Rx Instructions .Route 10/12/21 05/25/22 .COMPLEX #180 tabs albuterol sulfate 90 mcg/actuation 1 - 2 puff inhalation Q4H PRN 03/19/22 05/05/22 aerosol inhaler (ProAir HFA) bronchospasm #17 grams budesonide-formoterol HFA 160 See Rx Instructions .Route 03/19/22 05/25/22 mcg-4.5 mcg/actuation aerosol .COMPLEX #30.6 grams inhaler (Symbicort) naltrexone 50 mg tablet 50 mg PO DAILY #30 tabs 04/19/22 05/25/22 dicyclomine 20 mg tablet 20 mg PO TID PRN stomach upset #14 04/28/22 05/25/22 tabs cephalexin 500 mg tablet 500 mg PO QID 5 days #20 tabs 05/25/22 sulfamethoxazole 800 1 tab PO BID #10 tabs 05/25/22 mg-trimethoprim 160 mg tablet (Bactrim DS) Previous Rx's Medication Instructions Recorded naloxone 4 mg/actuation nasal spray 1 spray intranasal ONCE PRN opioid 08/21/18 overdose #2 ea cetirizine 10 mg tablet 10 mg PO DAILY #90 tabs 05/12/21 lisinopril 20 1 tab PO DAILY #90 tabs 05/12/21 mg-hydrochlorothiazide 25 mg tablet citalopram 20 mg tablet See Rx Instructions .Route 08/12/21 .COMPLEX #90 tabs fluticasone propionate 50 See Rx Instructions .Route 09/15/21 mcg/actuation nasal .COMPLEX #16 grams spray,suspension buspirone 5 mg tablet See Rx Instructions .Route 10/12/21 .COMPLEX #180 tabs albuterol sulfate 90 mcg/actuation 1 - 2 puff inhalation Q4H PRN 03/19/22 aerosol inhaler (ProAir HFA) bronchospasm #17 grams budesonide-formoterol HFA 160 See Rx Instructions .Route 03/19/22 mcg-4.5 mcg/actuation aerosol .COMPLEX #30.6 grams inhaler (Symbicort) naltrexone 50 mg tablet 50 mg PO DAILY #30 tabs 04/19/22 dicyclomine 20 mg tablet 20 mg PO TID PRN stomach upset #14 04/28/22 tabs cephalexin 500 mg tablet 500 mg PO QID 5 days #20 tabs 05/25/22 sulfamethoxazole 800 1 tab PO BID #10 tabs 05/25/22 mg-trimethoprim 160 mg tablet (Bactrim DS) Allergies Allergy/AdvReac Type Severity Reaction Status Date / Time Opioids - Morphine Analogues AdvReac Unknown (h/o Verified 05/25/22 15:16 addiction; wants to avoid where possible) dust Allergy Mild unknown Uncoded 05/25/22 15:16 hay Allergy Mild unknown Uncoded 05/25/22 15:16 pollen Allergy Mild unknown Uncoded 05/25/22 15:16 animal dander Allergy Unknown unknown Uncoded 05/25/22 15:16 General Stated Complaint: Cellulitis ASHTYN: 3 Review of Systems Narrative: 6 systems reviewed and unremarkable except what is marked below. 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 Psychiatry started adderall 11/2020 Multiple substance abuse (Chronic ~2014) Opioids (fentanyl, heroin, IVDA), cocaine 2015: [facility], heroin,cocaine 05/18/17- 05/24/17: [facility] with discharge to [facility] (IV Fentanyl,IV cocaine) 10/2018: [facility] early 2019: Relapse cocaine & fentanyl 02/2020: [facility]/Methadone 03/2022: [facility] Depression (Chronic 03/08/16) [facility] Psychiatry 02/09/16 PHQ-9 score 15 mod severe Citalopram, stopped secondary to sexual side effects; resumed 04/2018 Solitary right kidney (Chronic ~2017) Incidental finding on CT 11/2017 [facility] Nicotine dependence (Chronic) Essential hypertension (Chronic 01/07/14) Dx: 01/2014, RX Losartan & lifestyle Losartan dc'ed 02/2016 due to ins, changed to Lisinopril 07/2016: Higher-dose Lisinopril (20mg) caused GI probs, changed to Lisinopril- HCTZ 10-12.5mg Asthma (Chronic 11/26/13) PFTs 12/10/2013 severe obstructive disease & 11/2021-->airflow obstruction Medical History Allergic rhinitis (11/26/13) Cannabis use disorder, severe, dependence Cellulitis of arm, right (~02/2022) IVDA De Quervain's disease (radial styloid tenosynovitis) (09/06/16) Right Ortho+Mobic+Splint Intravenous drug abuse, episodic (07/04/17) IV Fentanyl and Cocaine 2018: [facility] admission followed by [facility] 2020: Relapse 02/2020: [facility] with Methadone treatment Opioid dependence in remission (02/09/16) Heroin--IVDA [facility] 2014, then relapse, 2016 on Methadone 2017--[facility] (Fentanyl & Cocaine); [facility] [place] followed by [facility]; discharge on Earnest, Clonidine Surgical History [place] teeth extracted Family History Mother Hyperlipidemia Substance abuse nicotine, EtOH Father No problems noted. Brother Asthma Maternal Aunt Lupus Maternal Aunt Celiac disease Paternal Grandfather Pancreatic cancer Social History Smoking/Tobacco Use Status: Current every day Tobacco Type: cigarettes Years smoked: 1 Tobacco: How many years used: 10 Smokeless tobacco user: other Quit status: not considering quitting Smoking risk assessment performed?: Yes Alcohol Intake: former Year quit: 2017 Drug use: Current Sobriety Substance use type: heroin Details: GOES TO [facility]- did have relapse in past week of heroin and cocaine 05/25/22 Adopted: No Household members: friend(s) Housing: house Number of Children: 2 number of grandchildren: 0 Communication Needs: None 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 [employer] Pets and animals: Yes (2 dogs) Pets and animals: dog(s) Do you think of yourself as: straight/heterosexual Current gender identity: male What type of physical activity do you participate in: none Seatbelt use: always Working smoke detector in home: Yes Fire extinguisher in home: Yes Do you feel safe at home: Yes Do you feel safe in your relationship?: Yes Exam Const General: cooperative, no acute distress and not ill appearing Orientation: alert, awake and oriented x3 HENMT Mouth: moist mucous membranes Resp Effort & Inspection: normal respiratory effort, able to speak in complete sentences and no respiratory distress Cardio Rate: regular rate Rhythm: regular rhythm Heart Sounds: S1 normal and S2 normal Skin Trauma: abrasion (With surrounding erythema to left scapula and right mid lower leg) Neuro General: patient alert, patient awake, patient oriented x3, moves all extremities and no focal motor deficits Sensory Exam: no sensory deficits noted Course Vital Signs Vital signs: Vital Signs Temperature 36.6 C 05/25/22 13:26 Pulse 94 H 05/25/22 13:26 Respiratory Rate 17 05/25/22 13:26 Blood Pressure 117/61 05/25/22 13:26 Pulse Oximetry 95 05/25/22 13:26 Temperature 36.6 C 05/25/22 13:26 Temperature Source Oral 05/25/22 13:26 Pulse 94 H 05/25/22 13:26 Respiratory Rate 17 05/25/22 13:26 Respiratory Effort Normal 05/25/22 13:32 Blood Pressure 117/61 05/25/22 13:26 Blood Pressure Position Sitting 05/25/22 13:26 Pulse Oximetry 95 05/25/22 13:26 Oxygen Delivery Method Room Air 05/25/22 13:26 Oxygen Flow Rate 0 05/25/22 13:26 Pain Level 3 05/25/22 13:26 Lab/Test Results Lab/Test Results: 05/25/22 14:05 Leg - Right Lower Wound Culture - Pending 05/25/22 14:05 Leg - Right Lower Gram Stain - Pending 05/25/22 14:30 Blood Blood Culture - Pending 05/25/22 14:15 Blood Blood Culture - Pending Laboratory Tests Range/Units 05/25/22 05/25/22 05/25/22 14:15 14:15 14:15 WBC (4.4-10.8) 10^3/uL 8.02 RBC (4.36-5.78) 10^6/uL 4.14 L Hgb (13.5-17.5) g/dL 11.9 L Hct (40.0-50.0) % 37.0 L MCV (80-95) fL 89 MCH (27.0-33.0) pg 28.7 MCHC (32.0-36.0) % 32.2 RDW (11.8-14.1) % 14.2 H Plt Count (130-400) 10^3/uL 224 MPV (8.0-11.0) fL 9.2 Immature Gran % 0.4 Neutrophils % 69.6 Lymphocytes % 15.2 Monocytes % 9.5 Eosinophils % 4.9 Basophils % 0.4 Nucleated RBC % (0.0-0.3) % 0.0 Absolute Neutrophils (1.2-6.7) 10^3/uL 5.59 Absolute Lymphocytes (1.2-3.4) 10^3/uL 1.22 Absolute Monocytes (0.1-0.8) 10^3/uL 0.76 Absolute Eosinophils (0.0-0.7) 10^3/uL 0.39 Absolute Basophils (0.0-0.2) 10^3/uL 0.03 ESR (0-15) mm/hr 24 H VBG Lactate (0.6-1.4) mmol/L 1.2 Troponin I Range/Units 05/25/22 14:15 WBC (4.4-10.8) 10^3/uL RBC (4.36-5.78) 10^6/uL Hgb (13.5-17.5) g/dL Hct (40.0-50.0) % MCV (80-95) fL MCH (27.0-33.0) pg MCHC (32.0-36.0) % RDW (11.8-14.1) % Plt Count (130-400) 10^3/uL MPV (8.0-11.0) fL Immature Gran % Neutrophils % Lymphocytes % Monocytes % Eosinophils % Basophils % Nucleated RBC % (0.0-0.3) % Absolute Neutrophils (1.2-6.7) 10^3/uL Absolute Lymphocytes (1.2-3.4) 10^3/uL Absolute Monocytes (0.1-0.8) 10^3/uL Absolute Eosinophils (0.0-0.7) 10^3/uL Absolute Basophils (0.0-0.2) 10^3/uL ESR (0-15) mm/hr VBG Lactate (0.6-1.4) mmol/L Troponin I Cancelled
[2022-05-25 14:52] LABS: ALT 239 U/L (16-63); AST 129 U/L (15-37); Albumin 3.1 g/dL (3.4-5.0); Alkaline Phosphatase 84 U/L (46-116); Anion Gap 4.2 mmol/L (3-11); BUN 12 mg/dL (7-18); Bilirubin, Total 0.5 mg/dL (0.2-1.0); C-Reactive Protein 3.78 mg/dL (0.0-0.3); CO2 32.8 mmol/L (21.0-32.0); Calcium 8.9 mg/dL (8.5-10.1); Chloride 105 mmol/L (98-107); Estimated GFR 95.77 (mL/min/1.73m2); Glucose 177 mg/dL (74-106); Sodium 142 mmol/L (136-145); Troponin I < 50 ng/L (<or=60)
[2022-05-25 15:20] VITALS: BP 111/64; PULSE 78; RESP 14; O2SAT 95
--- NOTE | 2022-05-25 16:08 | NUR.NOTE ---
Nursing Note: Referral faxed to PCP for cellulitis/in 3 days.
== END 2022-05-25 15:46 | disposition home or self-care (01) ==
PROVIDERS: Emergency Provider Nurse Practitioner Family; PCP Nurse Practitioner Adult Health
DX: L03.115 Cellulitis of right lower limb (principal); L03.114 Cellulitis of left upper limb; D64.9 Anemia, unspecified; R79.82 Elevated C-reactive protein (CRP); R70.0 Elevated erythrocyte sedimentation rate; R74.01 Elevation of levels of liver transaminase levels; S80.811A Abrasion, right lower leg, initial encounter; S40.212A Abrasion of left shoulder, initial encounter; X58.XXXA Exposure to other specified factors, initial encounter
CPT/HCPCS: 80053; 85652; 87040; 87077; 93005; 99283; 83605; 84484; 85025; 86140; 87070; 87186; 87205; 93010; 99284

== ENCOUNTER 2022-05-31 01:12 | Outpatient (CLI) | payer MEDICAID, SELFPAY ==
--- NOTE | 2022-05-31 07:30 | DI.US_ITS ---
Exam(s) US ABDOMEN EXAM: US ABDOMEN CLINICAL HISTORY: Evaluation for cirrhosis,CHRONIC HEP C,B18.2 TECHNIQUE: Ultrasound abdomen performed using standard protocol. COMPARISON: US ABDOMEN ULTRASOUND (P) from 06/09/[address] ABDOMEN PELVIS W from 04/28/2022 FINDINGS: ABDOMINAL AORTA AND IVC: Visualized portions normal caliber. PANCREAS: Normal where visualized. LIVER: Normal. Hepatopedal flow in the Portal Vein. There is focal fatty infiltration seen at the johny ction of the medial and lateral left lobes of the liver. This corresponds to the same area on the CT scan from 04/28/2022. GALLBLADDER:No evidence of cholelithiasis. No evidence of wall thickening. No pericholecystic fluid i dentified. BILIARY SYSTEM: Common bile duct measures < 7 mm. No intrahepatic biliary ductal dilation. YIN'S SIGN: Negative. KIDNEYS: There is a solitary right kidney. No evidence of renal calculi. No evidence of hydronephros is. No renal mass or cyst identified. SPLEEN: Not enlarged. ASCITES: None seen. IMPRESSION: 1. No sonographic evidence to suggest hepatic cirrhosis. 2. Focal fatty infiltration of the liver. 3. Absent left kidney. DATA REPOSITORY:
== END 2022-05-31 01:32 ==
LOC: DI 01:12
PROVIDERS: PCP Nurse Practitioner Adult Health; Visit Provider Surgery
DX: B18.2 Chronic viral hepatitis C (principal); K74.00 Hepatic fibrosis, unspecified; K76.0 Fatty (change of) liver, not elsewhere classified; I10 Essential (primary) hypertension; F11.20 Opioid dependence, uncomplicated
CPT/HCPCS: 76700

== ENCOUNTER 2022-06-10 14:31 | Outpatient (REF) | payer MEDICAID, SELFPAY ==
[2022-06-10 15:19] LABS: Abs Immature Grans 0.03 10^3/uL (0.0-0.06); Absolute Basophil Count 0.05 10^3/uL (0.0-0.2); Absolute Eosinophil Count 0.51 10^3/uL (0.0-0.7); Absolute Lymphocyte Count 1.48 10^3/uL (1.2-3.4); Absolute Monocyte Count 0.58 10^3/uL (0.1-0.8); Absolute Neutrophil Count 6.62 10^3/uL (1.2-6.7); Basophils % 0.5; Eosinophils % 5.5; HCT 38.3 % (40.0-50.0); HGB 12.9 g/dL (13.5-17.5); Immature Grans % 0.3; MCH 29.5 pg (27.0-33.0); MCHC 33.7 % (32.0-36.0); MCV 88 fL (80-95); MPV 9.1 fL (8.0-11.0); Monocytes % 6.3; Neutrophils % 71.4; Platelet Count 280 10^3/uL (130-400); RBC 4.37 10^6/uL (4.36-5.78); RDW 13.4 % (11.8-14.1); RDW-SD 42.5 fL; WBC 9.27 10^3/uL (4.4-10.8)
[2022-06-10 15:28] LABS: Hemoglobin A1C 6.1 % (<5.7)
[2022-06-10 15:31] LABS: ALT 22 U/L (16-63); AST 19 U/L (15-37); Albumin 3.4 g/dL (3.4-5.0); Alkaline Phosphatase 82 U/L (46-116); Anion Gap 6.9 mmol/L (3-11); BUN 20 mg/dL (7-18); Bilirubin, Total 0.4 mg/dL (0.2-1.0); C-Reactive Protein 1.26 mg/dL (0.0-0.3); CO2 34.1 mmol/L (21.0-32.0); CREATININE 1.1 mg/dL (0.70-1.30); Calcium 9.4 mg/dL (8.5-10.1); Chloride 99 mmol/L (98-107); Estimated GFR 85.42 (mL/min/1.73m2); Glucose 158 mg/dL (74-106); Potassium 3.8 mmol/L (3.5-5.1); Sodium 140 mmol/L (136-145); Total Protein 7.8 g/dL (6.4-8.2)
[2022-06-21 11:35] LABS: Amphetamines Negative ng/mL (Cutoff: 20); Barbiturates Negative ng/mL (Cutoff: 50); Benzodiazepines Negative ng/mL (Cutoff: 50); Buprenorphine Negative ng/mL (Cutoff: 1); Methamphetamine Negative ng/mL (Cutoff: 20)
[2022-06-21 11:36] LABS: Methadone Negative ng/mL (Cutoff: 25); Opiates Negative ng/mL (Cutoff: 20); Phencyclidine Negative ng/mL (Cutoff: 10)
[2022-06-21 11:37] LABS: Cocaine Positive ng/mL (Cutoff: 20)
[2022-06-21 11:52] LABS: Benzoylecgonine (Coc Met),S/P 257 ng/mL
== END 2022-06-10 14:32 | disposition home or self-care (01) ==
LOC: LBN 14:31
PROVIDERS: PCP Nurse Practitioner Adult Health; Visit Provider Nurse Practitioner Adult Health
DX: D64.9 Anemia, unspecified (principal); R73.09 Other abnormal glucose; K76.0 Fatty (change of) liver, not elsewhere classified; E87.6 Hypokalemia; R79.82 Elevated C-reactive protein (CRP); R74.01 Elevation of levels of liver transaminase levels; F19.10 Other psychoactive substance abuse, uncomplicated
CPT/HCPCS: 80053; 80353; 80307; 83036; 85025; 86140; G0480

== ENCOUNTER 2022-07-16 06:17 | Day surgery (SDC) | payer MEDICAID, SELFPAY ==
--- NOTE | 2022-07-15 20:45 | PDOC.DSDIS_ITS ---
Date of service: 07/16/22 Time of Service: 08:57 Discharge Plan Disposition Patient Disposition: Home Condition: Good Discharge Details Reason For Visit: Umbilical hernia repair Attending Provider: Redd Sheppard Primary Care Provider: Amanda Ny Home Meds and New Rx's Prescriptions: Continued albuterol sulfate [ProAir HFA] 90 mcg/actuation HFA aerosol inhaler 1 - 2 puff Inhalation Q4H MDD 24 inh/day PRN (Reason: bronchospasm) Qty: 17 3RF Rx Instructions: DX: ASTHMA Equivalent Ventolin may be substituted or other albuterol; if able, please dispense 2 inhalers at a time budesonide-formoterol [Symbicort] 160-4.5 mcg/actuation HFA aerosol inhaler See Rx Instructions .ROUTE .COMPLEX Qty: 30.6 3RF Dose Instruction: INHALE 2 PUFFS BY MOUTH TWICE DAILY FOR ASTHMA Rx Instructions: INHALE 2 PUFFS BY MOUTH TWICE DAILY FOR ASTHMA mupirocin 2 % ointment 1 applic topical BID-TID PRN (Reason: skin lesions) Qty: 15 0RF Rx Instructions: May substitute with cream if less expensive; apply thin layer until area/lesion resolved naltrexone 50 mg tablet 50 mg PO DAILY Qty: 30 0RF clonidine HCl 0.1 mg tablet 0.1 mg PO QHS Qty: 30 0RF cetirizine 10 mg tablet 10 mg PO DAILY Qty: 90 3RF Rx Instructions: DX: RUNNY NOSE AND ASTHMA lisinopril-hydrochlorothiazide 20-25 mg tablet 1 tab PO DAILY Qty: 90 3RF citalopram 20 mg tablet See Rx Instructions .ROUTE .COMPLEX Qty: 90 3RF Dose Instruction: TAKE 1 TABLET BY MOUTH DAILY Rx Instructions: TAKE 1 TABLET BY MOUTH DAILY fluticasone propionate 50 mcg/actuation spray,suspension See Rx Instructions .ROUTE .COMPLEX Qty: 16 4RF Dose Instruction: SHAKE LIQUID AND USE 1 TO 2 SPRAYS IN EACH NOSTRIL DAILY NEEDED FOR ALLERGY SYMPTOMS Rx Instructions: SHAKE LIQUID AND USE 1 TO 2 SPRAYS IN EACH NOSTRIL DAILY NEEDED FOR ALLERGY SYMPTOMS buspirone 5 mg tablet See Rx Instructions .ROUTE .COMPLEX Qty: 180 3RF Dose Instruction: TAKE 2 TABLETS BY MOUTH ONCE DAILY FOR ANXIETY Rx Instructions: TAKE 2 TABLETS BY MOUTH ONCE DAILY FOR ANXIETY naloxone 4 mg/actuation spray,non-aerosol 1 spray ARCHANA ONCE PRN (Reason: opioid overdose) Qty: 2 0RF Discharge Instructions Instructions: Umbilical Hernia Repair (DC) Additional Instructions: Gómez, we were able to repair your umbilical hernia today. I used an implantable permanent mesh like we talked about beforehand. I would anticipate some increased pain over the next 24 hours or so as the nerve blocks wear off, but Tylenol and ibuprofen should prove very helpful. I encourage you to refrain from cigarette smoking, and other substance use during your recovery. Equally important, please be very careful with lifting and your movement. Do not lift anything heavier than 10 pounds until we see you back in the office for routine follow-up. Additionally, be careful with vigorous twisting movements of your abdomen. Please follow the instructions attached here, and do not hesitate to call us if you have any questions. 1. Resume all of your medications. 2. Heating pads and ice packs are fine to use for pain. 3. Okay to use tylenol and ibuprofen over the counter as needed. Call me if you need additional medications after surgery 4. Leave bandage in place for 24 hours, then remove. 5. Shower with warm soapy water. Pat dry. Use a bandaid if needed to protect your clothing. 6. No soaking or tub baths until I see you in the office. 7. No heavy lifting until I see you in the office. 8.Call the office (or go directly to the emergency room after hours) if you noti ce any of the following: Develop chills (warm to touch), or if you have a thermometer and your temperature is above 101 Difficulty breathing or difficultly swallowing Persistent vomiting Any bleeding ? exceeding one tablespoon 9. Call your physician if the site where your intravenous was started becomes red, swollen, painful, and warm to touch. Stand Alone Forms: Anesthesia Discharge Inst., Anes.Nerve Block Instructions, Brian Donaldson (DSU) Referrals: Redd Sheppard MD [ [facility] STAFF PHYSICIAN] - (August 04 at 9 AM) Activity:: No heavy lifting Remove Dressings/Wound Care:: 24 hours Shower/Bathe:: 24 hours Diet:: As Tolerated DS: Diagnosis Discharge Diagnosis (1) Hernia, umbilical: Status: Inactive Asessment and Plan: Status post hernia repair, routine follow-up in the office
--- NOTE | 2022-07-15 20:51 | ROE_ITS ---
Date of service: 07/16/22 Time of Service: 09:01 Operative Note Operative Note DATE OF PROCEDURE: 07/16/22 PRE-OP DIAGNOSIS: Umbilical hernia POST-OP DIAGNOSIS: same PROCEDURE: Open umbilical hernia repair with mesh SURGEON: Redd Sheppard INSTRUCTIONAL TECHNOLOGY COACH: Bernie Dunn ANESTHESIA TYPE: Local By Surgeon, General LMA/ETT and Primary Nerve Block Refer to Anesthesia Record ESTIMATED BLOOD LOSS: 50 COMPLICATIONS: None Patient was transported to: PACU Patient's condition: stable Indications: Gómez is a 42-year-old male with a painful umbilical hernia. Additionally, its been increasing in size. Findings: Umbilical hernia with approximately 3 cm of fascial defect in the greatest dimension. Procedure Description: After the induction of general endotracheal anesthesia, bilateral rectus blocks were performed with real-time ultrasound guidance by the anesthesia team. Next, I prepped and draped the anterior abdominal wall in the usual fashion. I began with an incision along the underside of the umbilicus. I dissected down to healthy fascia. The fascia was grasped with a [place] clamp, and I continued the dissection cephalad towards the hernia neck. I continued this dissection superficially along the underside of the umbilical skin, liberating it from the hernia sac. With this complete, the skin was then reflected cephalad, and I continued the dissection around the remainder of the hernia sac to healthy fascia all along. Although the hernia was quite large in its anterior posterior dimension (I would approximate 5 cm), the actual fascial defect was only about 3 cm in its greatest dimension. Healthy fascia was dissected all along the hernia neck, then small incisions were made on the right and left side of the fascia to allow for safe reduction of the hernia sac and its contents. Once this was complete, the underside of the fascia was carefully evaluated. It appeared to be free of adhesions. Next, I delivered an umbilical Ventralex hernia patch into the subfascial position. Great care was taken to ensure that it was flattened out with good underlay along the healthy fascia. It was pexied down onto the fascia of the rectus, and the midline fascia was closed with interrupted 2-0 PDS stitches horizontally. Overlying skin and soft tissues were irrigated, deep space was obliterated with some interrupted Vicryl stitches, and the underside of the umbilical skin was pexied downward for cosmesis. Skin was closed with a running subcuticular stitch. Bandages were applied, and the patient was allowed awaken from anesthesia and transferred to the recovery unit.
[2022-07-16] VITALS (10 sets, daily range): BP systolic 101–156; BP diastolic 62–96; PULSE 61–75; RESP 12–20; TEMP 36.4–37.2; O2SAT 92–98; BMI 37.4
--- NOTE | 2022-07-16 04:59 | ANES.PREOP_ITS ---
General Info Date of Service Date Performed: 07/16/22 Height: 5 ft 4 in Weight: 98.883 kg Body Mass Index (BMI): 37.4 Surgical Procedure: Operation Date: 07/16/22 07:40 Proposed Procedure Side Surgeon p Herniorrhaphy Large Umbilical w/Mesh Redd Sheppard MD Meds Allergies and Home Medications Allergies Allergy/AdvReac Type Severity Reaction Status Date / Time Opioids - Morphine Analogues AdvReac Unknown (h/o Verified 07/16/22 06:39 addiction; wants to avoid where possible) dust Allergy Mild unknown Uncoded 07/15/22 11:51 hay Allergy Mild unknown Uncoded 07/15/22 11:51 pollen Allergy Mild unknown Uncoded 07/15/22 11:51 animal dander Allergy Unknown unknown Uncoded 07/15/22 11:51 Home Medication Medication Instructions Recorded naloxone 4 mg/actuation nasal spray 1 spray intranasal ONCE PRN opioid 08/21/18 overdose #2 ea citalopram 20 mg tablet See Rx Instructions .Route 08/12/21 .COMPLEX #90 tabs fluticasone propionate 50 See Rx Instructions .Route 09/15/21 mcg/actuation nasal .COMPLEX #16 grams spray,suspension buspirone 5 mg tablet See Rx Instructions .Route 10/12/21 .COMPLEX #180 tabs albuterol sulfate 90 mcg/actuation 1 - 2 puff inhalation Q4H PRN 03/19/22 aerosol inhaler (ProAir HFA) bronchospasm #17 grams budesonide-formoterol HFA 160 See Rx Instructions .Route 03/19/22 mcg-4.5 mcg/actuation aerosol .COMPLEX #30.6 grams inhaler (Symbicort) cetirizine 10 mg tablet 10 mg PO DAILY #90 tabs 05/27/22 lisinopril 20 1 tab PO DAILY #90 tabs 05/27/22 mg-hydrochlorothiazide 25 mg tablet clonidine HCl 0.1 mg tablet 0.1 mg PO QHS #30 tabs 06/10/22 mupirocin 2 % topical ointment 1 applic topical BID-TID PRN skin 06/10/22 lesions #15 grams naltrexone 50 mg tablet 50 mg PO DAILY #30 tabs 06/10/22 Current Visit Medications: Current Medications Generic Name Dose Route Start Last Admin Trade Name Freq PRN Reason Stop Dose Admin Acetaminophen 1,000 mg 07/16/22 06:00 Acetaminophen 500 Mg Tab PO 07/16/22 23:59 PREOP REBECCA Gabapentin 600 mg 07/16/22 06:00 Gabapentin 300 Mg Cap PO 07/16/22 23:59 PREOP REBECCA Ringer's Solution 1,000 mls @ 80 mls/hr 07/16/22 06:00 IV 07/16/22 23:59 INFUSION REBECCA Cefazolin Sodium/Dextrose 2 gm in 50 mls @ 100 mls/hr 07/16/22 06:00 Ancef Duplex IVPB 07/16/22 23:59 PREOP REBECCA IV Miscellaneous Supplies 1 each 07/16/22 06:00 Iv Access IV 07/16/22 23:59 DIRECTED REBECCA Sodium Chloride 0 ml 07/16/22 06:00 Normal Saline Flush 10 Ml Syr IV 07/16/22 23:59 PRN PRN Sodium Chloride 0 ml 07/16/22 06:00 Normal Saline 10 Ml Vial IJ 07/16/22 23:59 DIRECTED PRN Sterile Water 0 ml 07/16/22 06:00 Water,Injection,Sterile 10 Ml Vial IJ 07/16/22 23:59 DIRECTED PRN PFSH Active Problems Active Problems: Problem Status Onset Code Asthma 11/26/13 J45.909 Essential hypertension 01/07/14 I10 Nicotine dependence F17.200 Solitary right kidney ~2017 Q60.0 Depression 03/08/16 F32.9 Multiple substance abuse ~2014 F19.10 Opioid use disorder, severe, dependence F11.20 Cocaine use disorder, severe, dependence F14.20 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 2 hepatic fibrosis ~2017 B18.2, K74.00 Fatty liver disease, nonalcoholic ~2017 K76.0 Elevated serum creatinine R79.89 IFG (impaired fasting glucose) ~06/2022 R73.01 Snoring R06.83 Abnormal liver enzymes R74.8 Medical History Medical History ADHD (attention deficit hyperactivity disorder) (~11/2020) [facility] Psychiatry started adderall 11/2020 Akathisia Allergic rhinitis (11/26/13) Cannabis use disorder, severe, dependence Cellulitis of arm, right (~02/2022) IVDA De Quervain's disease (radial styloid tenosynovitis) (09/06/16) Right Ortho+Mobic+Splint Gastroenteritis History of hepatitis C (~2017) Hypokalemia due to excessive gastrointestinal loss of potassium (~04/2022) Intravenous drug abuse, episodic (07/04/17) IV Fentanyl and Cocaine 2018: [facility] admission followed by Iain Valdez 2020: Relapse 02/2020: RUBY with Methadone treatment Nausea vomiting and diarrhea Opioid dependence in remission (02/09/16) Heroin--[facility] 2014, then relapse, 2016 on Methadone 2018--IVDA (Fentanyl & Cocaine); [facility] followed by Iain Valdez; discharge on Earnest, Clonidine Surgical History Surgical History H/O wisdom tooth extraction [place] teeth extracted Tobacco Smoking/Tobacco Use Status: Current every day Tobacco Type: cigarettes Smoking cigarettes per day: 10 Years smoked: 1 Smokeless tobacco user: other Alcohol Alcohol Intake: former Year quit: 2017 Substance Use Substance use: Current Sobriety Substance use type: marijuana and heroin Details: GOES TO [facility]- did have relapse in past week of heroin and cocaine 05/25/22; no cannibas for over 2 months Vital Signs and Lab Results Vital Signs Most Recent Vital Signs in EMR: Temp Pulse Resp BP Pulse Ox 36.4 C L 62 20 101/62 96 07/16/22 06:43 07/16/22 06:43 07/16/22 06:43 07/16/22 06:43 07/16/22 06:43 Lab Results Blood Type / Crossmatch: No Data to Display Complete Blood Count: No Data to Display Complete Metabolic Panel: No Data to Display Liver Function Panel: No Data to Display Coagulation Panel: No Data to Display Cardiac Panel: No Data to Display Arterial Blood Gas: No Data to Display Venous Blood Gas: No Data to Display Pancreas Panel: No Data to Display Thyroid Panel: No Data to Display Infectious Disease: No Data to Display Blood Cultures: No Data to Display Toxicology Panel: No Data to Display Imaging and Studies Imaging and Studies Study information below may be from another EMR and interpreted by another provider. Please see original notes in EMR for more complete details. EKG Summary: 05/27: sinus rhythm. Pulmonary Function Summary: 11/23: moderate airflow obstruction. Anesthesia Assessment and Plan Anesthesia History Personal History: No History of General Anesthesia Family History: No Family History of Anesthesia Complications Exercise Tolerance Exercise Tolerance: Metabolic Equivalents>4 Cardiac & Pulmonary Exam Cardiac Exam: Normal S1/S2 Heart Sounds Pulmonary Exam: Clear Bilateral Breath Sounds Implantable Cardiac Device Does patient have a Pacemaker or an ICD?: No Airway Exam Known Difficult Airway: No Mallampati Class: 3 Mouth Opening: Narrow (< 3cm) Thyromental Distance: Greater than 3 cm Neck Range of Motion: Full ROM Neck Circumference: Thick Teeth Condition: Normal Dentition ASA Classification ASA Score: ASA 2 Emergency Case?: No NPO Status NPO Status: NPO Clears >2 hours, Solids >8 hours Anesthesia Plan Resuscitation Status: Full Code Anesthesia Technique: General Anesthesia Airway Planned: LMA Pain Management: Surgeon and patient request nerve block Monitors Used: Standard Monitors Preoperative Comments:: 42 yo male for hernia repair. Sig PMHx: Asthma (albuterol, symbicort), HTN (lisinopril, HCTZ), right lung nodule, depression/adhd, [place], history of IVDU/cocaine (naltrexone), hep c, current tobacco, former EtOH, single kidney (last GFR 80) Plan: preop cocktail ordered elsa sheppard GA/LMA, RS block.
[2022-07-16] MEDS: Gabapentin 300 MG CAP 600 MG PO (06:51)
[2022-07-16] MEDS: Acetaminophen 500 MG TAB 1000 MG PO (06:51)
--- NOTE | 2022-07-16 07:03 | W.ANESNERVE ---
Nerve Block Single Injection Procedure Date and Time Date Performed: 07/16/22 Procedure Start: 07:36 Location Where Procedure Performed Procedure Location: Operating Room Procedure Stop: 07:45 Reason Performed: Postoperative Analgesia Requesting Provider: Redd Sheppard Timeout Performed Timeout Performed: Yes Monitoring Used ECG, Blood Pressure, SpO2 and ETCO2 Sterility Sterility: Hand Hygiene, Surgical Cap, Surgical Mask, Sterile Gloves and Chlorhexidine Sedation Given During Procedure Sedation Given (Indicate Dose Given): No Sedation given Patient Mental Status Patient Mental Status: Performed under general anesthesia Nerve Block 1st Nerve Block: Laterality: Bilateral Block Type: Rectus Sheath (Bilateral) Ultrasound Image Saved?: Yes Needle / Catheter Used: 100mm SonoPlex II Local Anesthetic Bolus (Indicate Dose Given): Injected in 3-5ml increments after negative blood aspiration, Half of Total block solution given into each side and Bupivacaine 0.375% Dose:: 30 mL Additives (Indicate Dose Given): Epinephrine to make 1:200,000 (5mcg/ml) Dose:: 150 mcg and Precedex Dose:: 80 mcg Ultrasound: Sterile probe cover and gel used Nerve Stimulator: Not Used Paresthesia: None Procedure Tolerated: No Complications Procedure Outcome: Successful Performed By: Clint Pedraza
[2022-07-16] MEDS: Lactated Ringers 1,000 ML 80 ML IV (07:04)
[2022-07-16] MEDS: ceFAZolin 2 GM/50 ML BAG IVPB (07:31)
[2022-07-16] MEDS: Bupivacaine 0.25% Pres-Free 30 ML VIAL (08:54)
--- NOTE | 2022-07-16 09:39 | W.ANESPOSTOP ---
Postoperative Evaluation Date, Time and Location Date Performed: 07/16/22 Time Performed: 09:39 Patient Location: PACU Vital Signs Most Recent Imported Vital Signs: Most Recent Vital Signs Temp Pulse Resp BP Pulse Ox 37.1 C 75 17 143/90 H 95 07/16/22 09:30 07/16/22 09:30 07/16/22 09:30 07/16/22 09:30 07/16/22 09:30 Pain Score Most Recent Pain Score: Most Recent Pain Score Pain Level 0 07/16/22 06:43 Assessment Mental Status: Awake (Alert & Oriented to Patient Baseline) Airway and Respiratory Function: Patent airway with normal (patient baseline) respiratory exam Cardiovascular Function: Hemodynamically Stable Hydration Status: Adequately Hydrated Nausea & Vomiting: No Nausea or Vomiting Pain: Pain is tolerable per patient Peripheral Nerve Block: Regional nerve block not resolved at time of post operative discharge
== END 2022-07-16 11:59 | disposition home or self-care (01) ==
PROVIDERS: PCP Nurse Practitioner Adult Health; Visit Provider Surgery
PROC: (CPT 49593; principal; 2022-07-16 07:30)
DX: K42.9 Umbilical hernia without obstruction or gangrene (principal); F14.20 Cocaine dependence, uncomplicated; F11.20 Opioid dependence, uncomplicated; F12.20 Cannabis dependence, uncomplicated
CPT/HCPCS: 49593; 76942; C1781; J0171; J0690; J1100; J2250; J2405; J2704; J3475

== ENCOUNTER 2022-12-03 19:18 | Emergency (ER) | payer MEDICAID, SELFPAY ==
[2022-12-03] VITALS (51 sets, daily range): BP systolic 62–109; BP diastolic 21–78; PULSE 72–116; RESP 6–20; TEMP 36.9–37.4; O2SAT 84–100
[2022-12-03] MEDS: Albuterol/Ipratropium 3 ML UPD VIAL ×2 (19:33)
[2022-12-03] MEDS: predniSONE 20 MG TAB 60 MG PO (19:53)
--- NOTE | 2022-12-03 20:45 | DI.RAD_ITS ---
Exam(s) XR PORTABLE CHEST AP EXAM: XR PORTABLE CHEST AP CLINICAL HISTORY: sob, asthma TECHNIQUE: 2D digital imaging was performed of the chest. One image was obtained. An AP view was ob tained. COMPARISON: CR,XR XR PORTABLE CHEST AP from 05/16/2021 FINDINGS: MEDIASTINUM: Normal. HEART: Normal. PULMONARY VASCULATURE: Normal. LUNGS: There opacities in the left lung base which may represent atelectasis or pneumonia. PLEURAL SPACE: No pleural effusion or pneumothorax. BONE:Within normal limits for the patient's age. OTHER FINDINGS:Normal. IMPRESSION: Left basilar opacities which may represent atelectasis or pneumonia. DATA REPOSITORY: RADIATION DOSE DELIVERED:
--- NOTE | 2022-12-03 20:56 | ED.GENADUL_ITS ---
Discharge Plan Discharge Details Chief Complaint: OD/Poison Clinical Impression: Hypoxemia, Hypotension Primary Care Provider: Amanda Ny ED Provider: Joshua Carrasco Home Meds and New Rx's Prescriptions: No Action albuterol sulfate [ProAir HFA] 90 mcg/actuation HFA aerosol inhaler 1 - 2 puff Inhalation Q4H MDD 24 inh/day PRN (Reason: bronchospasm) Qty: 17 3RF Rx Instructions: DX: ASTHMA Equivalent Ventolin may be substituted or other albuterol; if able, please dispense 2 inhalers at a time budesonide-formoterol [Symbicort] 160-4.5 mcg/actuation HFA aerosol inhaler See Rx Instructions .ROUTE .COMPLEX Qty: 30.6 3RF Dose Instruction: INHALE 2 PUFFS BY MOUTH TWICE DAILY FOR ASTHMA Rx Instructions: INHALE 2 PUFFS BY MOUTH TWICE DAILY FOR ASTHMA mupirocin 2 % ointment 1 applic topical BID-TID PRN (Reason: skin lesions) Qty: 15 0RF Rx Instructions: May substitute with cream if less expensive; apply thin layer until area/lesion resolved naltrexone 50 mg tablet 50 mg PO DAILY Qty: 30 0RF clonidine HCl 0.1 mg tablet 0.1 mg PO QHS Qty: 30 0RF cetirizine 10 mg tablet 10 mg PO DAILY Qty: 90 3RF Rx Instructions: DX: RUNNY NOSE AND ASTHMA lisinopril-hydrochlorothiazide 20-25 mg tablet 1 tab PO DAILY Qty: 90 3RF fluticasone propionate 50 mcg/actuation spray,suspension See Rx Instructions .ROUTE .COMPLEX Qty: 16 4RF Dose Instruction: SHAKE LIQUID AND USE 1 TO 2 SPRAYS IN EACH NOSTRIL DAILY NEEDED FOR ALLERGY SYMPTOMS Rx Instructions: SHAKE LIQUID AND USE 1 TO 2 SPRAYS IN EACH NOSTRIL DAILY NEEDED FOR ALLERGY SYMPTOMS buspirone 5 mg tablet See Rx Instructions .ROUTE .COMPLEX Qty: 180 3RF Dose Instruction: TAKE 2 TABLETS BY MOUTH ONCE DAILY FOR ANXIETY Rx Instructions: TAKE 2 TABLETS BY MOUTH ONCE DAILY FOR ANXIETY citalopram 20 mg tablet See Rx Instructions .ROUTE .COMPLEX Qty: 90 3RF Dose Instruction: TAKE 1 TABLET BY MOUTH DAILY Rx Instructions: TAKE 1 TABLET BY MOUTH DAILY naloxone 4 mg/actuation spray,non-aerosol 1 spray ARCHANA ONCE PRN (Reason: opioid overdose) Qty: 2 0RF Medical Decision Making 42-year-old male with a past medical history of hypertension, asthma, solitary right kidney, cocaine use, chronic hep C, who presents today after overdose. Patient states that he used fentanyl, and unfortunately this led to him overdosing. He was from vomiting and brought in by EMS. Patient denies any complaints whatsoever. He denies any chest pain, headache, neck pain. He denies overdosing in the past. He denies taking any other medications or drugs. No other complaints at this time. Exam demonstrates wheezes in the lungs. A responsive male. Blood pressure is in 103 systolic, mildly tachycardic, oxygenation is at around 87% on room air. We will start the patient on supplemental oxygen, give breathing treatments and steroids, monitor closely and reassess. Symptoms at this time appear clinically consistent with an asthma exacerbation or reactive airway disease.. 9 PM On reassessment patient states he is feeling much better and feels comfortable going home. Patient received his breathing treatments and the wheeze has resolved. Patient was then titrated off of oxygen however his oxygen dropped down to the high 80s even after the breathing treatments. In addition to that blood pressure started to trend downwards into the 80s and 70s systolic. In spite of this the patient stated that he clinically felt better and he felt ready to go home. Symptoms are certainly atypical. Bedside exam was performed with ultrasonography and heart demonstrates good ejection fracture, inferior vena cava was measured and is between 1.5 and 2 cm with less than 50% collapse with inspiration. No evidence of pericardial tamponade or effusion. Ejection fraction appears to be around 65%. Good lung sliding in both lungs, symptoms appear inconsistent with tension pneumothorax. Uncertain as to what the exact cause of his hypotension and hypoxemia is from. There may be a component of pulmonary edema from the Narcan. We will get a chest x-ray. We will rehydrate. He has no fever, and so sepsis appears clinically unlikely. PE is also on the differential. We will continue to monitor closely and reassess. Will give 2 L of normal saline. 10:[address] scan has returned, no acute process. The blood pressure is improving and is now in the 90s after the first liter of fluid. We will do the second liter. We will continue to monitor. Patient will be signed out to my colleague Dr. Morocho for reassessment after fluids. FINDINGS: Lungs: Opacities in the left base may represent atelectasis or pneumonia.. Pleural spaces: Unremarkable. No pleural effusion. No pneumothorax. Heart/Mediastinum: Unremarkable. No cardiomegaly. Bones/joints: Unremarkable. IMPRESSION: Opacities in the left base may represent atelectasis or pneumonia.. Thank you for allowing us to participate in the care of your patient. Dictated and Authenticated by: Lauren Bergeron MD 12/03/2022 10:04 PM Eastern Time ([place] & [place]) FINDINGS: Pulmonary arteries: Normal. No pulmonary emboli. Aorta: Unremarkable. No aortic aneurysm. No aortic dissection. Lungs: Unremarkable. No consolidation. No masses. Pleural spaces: Unremarkable. No pneumothorax. No pleural effusion. Heart: Unremarkable. No cardiomegaly. No pericardial effusion. Lymph nodes: Unremarkable. No enlarged lymph nodes. Liver: There is hepatic steatosis. There is small hiatal hernia. Bones/joints: Unremarkable. No acute fracture. Soft tissues: Unremarkable. IMPRESSION: 1. No pulmonary embolism or aortic dissection. 2. No focal consolidation or pleural effusion. Thank you for allowing us to participate in the care of your patient. Dictated and Authenticated by: Ra Manzano DO 12/03/2022 10:54 PM Eastern Time ([place] & [place]) HPI General Date/Time Provider Initiated Documentation: 12/03/22 19:31 . HPI Narrative: 42-year-old male with a past medical history of hypertension, asthma, solitary right kidney, cocaine use, chronic hep C, who presents today after overdose. Patient states that he used fentanyl, and unfortunately this led to him overdosing. He was from vomiting and brought in by EMS. Patient denies any complaints whatsoever. He denies any chest pain, headache, neck pain. He denies overdosing in the past. He denies taking any other medications or drugs. No other complaints at this time. Related Data Home Medications Medication Instructions Recorded Confirmed naloxone 4 mg/actuation nasal spray 1 spray intranasal ONCE PRN opioid 08/21/18 12/03/22 overdose #2 ea buspirone 5 mg tablet See Rx Instructions .Route 10/12/21 12/03/22 .COMPLEX #180 tabs albuterol sulfate 90 mcg/actuation 1 - 2 puff inhalation Q4H PRN 03/19/22 12/03/22 aerosol inhaler (ProAir HFA) bronchospasm #17 grams budesonide-formoterol HFA 160 See Rx Instructions .Route 03/19/22 12/03/22 mcg-4.5 mcg/actuation aerosol .COMPLEX #30.6 grams inhaler (Symbicort) cetirizine 10 mg tablet 10 mg PO DAILY #90 tabs 05/27/22 12/03/22 lisinopril 20 1 tab PO DAILY #90 tabs 05/27/22 12/03/22 mg-hydrochlorothiazide 25 mg tablet clonidine HCl 0.1 mg tablet 0.1 mg PO QHS #30 tabs 06/10/22 12/03/22 mupirocin 2 % topical ointment 1 applic topical BID-TID PRN skin 06/10/22 12/03/22 lesions #15 grams naltrexone 50 mg tablet 50 mg PO DAILY #30 tabs 06/10/22 12/03/22 fluticasone propionate 50 See Rx Instructions .Route 07/20/22 12/03/22 mcg/actuation nasal .COMPLEX #16 grams spray,suspension citalopram 20 mg tablet See Rx Instructions .Route 11/15/22 12/03/22 .COMPLEX #90 tabs Previous Rx's Medication Instructions Recorded naloxone 4 mg/actuation nasal spray 1 spray intranasal ONCE PRN opioid 08/21/18 overdose #2 ea buspirone 5 mg tablet See Rx Instructions .Route 10/12/21 .COMPLEX #180 tabs albuterol sulfate 90 mcg/actuation 1 - 2 puff inhalation Q4H PRN 03/19/22 aerosol inhaler (ProAir HFA) bronchospasm #17 grams budesonide-formoterol HFA 160 See Rx Instructions .Route 03/19/22 mcg-4.5 mcg/actuation aerosol .COMPLEX #30.6 grams inhaler (Symbicort) cetirizine 10 mg tablet 10 mg PO DAILY #90 tabs 05/27/22 lisinopril 20 1 tab PO DAILY #90 tabs 05/27/22 mg-hydrochlorothiazide 25 mg tablet clonidine HCl 0.1 mg tablet 0.1 mg PO QHS #30 tabs 06/10/22 mupirocin 2 % topical ointment 1 applic topical BID-TID PRN skin 06/10/22 lesions #15 grams naltrexone 50 mg tablet 50 mg PO DAILY #30 tabs 06/10/22 fluticasone propionate 50 See Rx Instructions .Route 07/20/22 mcg/actuation nasal .COMPLEX #16 grams spray,suspension citalopram 20 mg tablet See Rx Instructions .Route 11/15/22 .COMPLEX #90 tabs Allergies Allergy/AdvReac Type Severity Reaction Status Date / Time Opioids - Morphine Analogues AdvReac Unknown (h/o Verified 12/03/22 19:25 addiction; wants to avoid where possible) dust Allergy Mild unknown Uncoded 12/03/22 19:25 hay Allergy Mild unknown Uncoded 12/03/22 19:25 pollen Allergy Mild unknown Uncoded 12/03/22 19:25 animal dander Allergy Unknown unknown Uncoded 12/03/22 19:25 General Stated Complaint: OD/Poison ASHTYN: 3 Review of Systems All systems reviewed & are unremarkable except as noted in HPI and below PFSH All Active Problems (Updated 12/03/22 @ 22:58 by Joshua Carrasco DO) Hypoxemia (Acute) Hypotension (Acute) Asthma (Chronic 11/26/13) PFTs 12/10/2013 severe obstructive disease & 11/2021-->airflow obstruction Essential hypertension (Chronic 01/07/14) Dx: 01/2014, RX Losartan & lifestyle Losartan dc'ed 02/2016 due to ins, changed to Lisinopril 07/2016: Higher-dose Lisinopril (20mg) caused GI probs, changed to Lisinopril- HCTZ 10-12.5mg Nicotine dependence (Chronic) Solitary right kidney (Chronic ~2017) Incidental finding on CT 11/2017 [facility] Depression (Chronic 03/08/16) [facility] Psychiatry 02/09/16 PHQ-9 score 15 mod severe Citalopram, stopped secondary to sexual side effects; resumed 04/2018 Multiple substance abuse (Chronic ~2014) Opioids (fentanyl, heroin, IVDA), cocaine 2014: [place], heroin,cocaine 05/18/17- 05/24/17: [facility] with discharge to [facility] (IV Fentanyl,IV cocaine) 10/2018: [place] early 2019: Relapse cocaine & fentanyl 02/2020: RUBY/Methadone 03/2022: [place] Opioid use disorder, severe, dependence (Acute) Cocaine use disorder, severe, dependence (Acute) 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 2 hepatic fibrosis (Chronic ~2017) Per [facility] in 2018 Fatty liver disease, nonalcoholic (Acute ~2017) stage 1 per [facility] 2018 IFG (impaired fasting glucose) (Acute ~06/2022) A1C 6.1% Snoring (Acute) Medical History Abnormal liver enzymes ADHD (attention deficit hyperactivity disorder) (~11/2020) [facility] Psychiatry started adderall 11/2020 Akathisia Allergic rhinitis (11/26/13) Cannabis use disorder, severe, dependence Cellulitis of arm, right (~02/2022) IVDA De Quervain's disease (radial styloid tenosynovitis) (09/06/16) Right Ortho+Mobic+Splint Elevated serum creatinine Gastroenteritis History of hepatitis C (~2017) Hypokalemia due to excessive gastrointestinal loss of potassium (~04/2022) Intravenous drug abuse, episodic (07/04/17) IV Fentanyl and Cocaine 2018: [place] admission followed by [facility] 2020: Relapse 02/2020: RUBY with Methadone treatment Nausea vomiting and diarrhea Opioid dependence in remission (02/09/16) Heroin--IVDA [place] BARRT 2014, then relapse, 2016 on Methadone 2017--IVDA (Fentanyl & Cocaine); [facility] [place] followed by [facility]; discharge on Earnest, Clonidine Surgical History H/O wisdom tooth extraction [place] teeth extracted Family History Mother Hyperlipidemia Substance abuse nicotine, EtOH Father No problems noted. Brother Asthma Maternal Aunt Lupus Maternal Aunt Celiac disease Paternal Grandfather Pancreatic cancer Social History Smoking/Tobacco Use Status: Current every day Tobacco Type: cigarettes Years smoked: 1 Tobacco: How many years used: 10 Smokeless tobacco user: other Quit status: not considering quitting Smoking risk assessment performed?: Yes Alcohol Intake: former Year quit: 2017 Drug use: Current Sobriety Substance use type: marijuana and heroin Details: GOES TO [place]- did have relapse in past week of heroin and cocaine 05/25/22; no cannibas for over 2 months Adopted: No Household members: friend(s) Housing: house Number of Children: 2 number of grandchildren: 0 Communication Needs: None 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 3.ENT: Atraumatic external nose and ears. Moist MM. Neck: Symmetric, trachea midline, No thyromegaly. 4.CVS: +S1/S2, No murmurs or gallops. Peripheral pulses 2+ and equal in all extremities. Brisk capillary refill in all extremities. 5.RESP: Unlabored respiratory effort. No audible wheezes throughout. No rhonchi. No rales. 6.GI: Soft, Nontender/Nondistended, No hepatosplenomegaly. No guarding or rebound. 7.MSK: Normocephalic/Atraumatic, Extremities w/o deformity or ttp No cyanosis or clubbing, Normal movement of all extremities 8.Skin: Warm, Dry. No rashes or lesions. 9.Neuro: director of medicare II-XII grossly intact. Sensation grossly intact, no focal neurologic deficits. All 6 cardinal planes of vision are fully intact. No evidence of rotatory or vertical nystagmus. The patient demonstrated a normal [id number], good dexterity. There was no evidence of dysdiadochokinesia. Patient was able to ambulate without difficulty. There was no wide-based gait. Romberg testing was normal. [id number] testing was normal. Sensation was intact bilaterally as well as muscle strength bilaterally for all extremities. Patient was able to verbalize butter cup with no slurring, or miss pronunciation. 10.Psych: (AAO) x3. Appropriate mood and affect Course Vital Signs Vital signs: Vital Signs Temperature 36.9 C 12/03/22 19:13 Pulse 116 H 12/03/22 19:13 Respiratory Rate 20 12/03/22 19:13 Blood Pressure 103/65 12/03/22 19:13 Pulse Oximetry 87 L 12/03/22 19:13 Temperature 37.4 C 12/03/22 19:27 Temperature Source Oral 12/03/22 19:27 Pulse 110 H 12/03/22 19:27 Respiratory Rate 20 12/03/22 19:27 Respiratory Effort Normal 12/03/22 19:21 Blood Pressure 103/65 12/03/22 19:13 Pulse Oximetry 93 12/03/22 19:27 Oxygen Delivery Method Nasal Cannula 12/03/22 19:27 Oxygen Flow Rate 0 12/03/22 19:13 POCUS Exam (ED) MCDANIEL Exam DATE OF EXAM: 12/03/22 TIME OF EXAM: 22:05 PROVIDER THAT PERFORMED THE STUDY: Joshua Carrasco IS THIS A REPEAT EXAM DURING THIS ENCOUNTER: No REASON FOR EXAM: Hypotension VISUALIZED STRUCTURES: Cardiac Four Chambers, Inferior Vena Cava, Lung/left side and Lung/right side PERTINENT FINDINGS/IMPRESSION: No apparent abnormalities; lung sliding present on left side, lung sliding present on right side, No free fluid, No global cardiac hypokinesis noted, No pericardial effusion, No pleural effusion on left side and No pleural effusion on right side Echocardiography/Transthoracic Limited Exam: Exam Complete Chest Limited Exam: Exam Complete Abdominal Limited Exam: Exam Complete Retroperitoneal Limited Exam: Exam Complete
--- NOTE | 2022-12-03 21:45 | DI.CT_ITS ---
Exam(s) CT CHEST PE CTA EXAM: CT CHEST PE CTA CLINICAL HISTORY: hypoxic, hypotensive, eval for PE. TECHNIQUE: Imaging Protocol: Axial CT angiography was performed with multi-slice acquisition and mu lti-planar and/or 3D reconstructions. CONTRAST MATERIAL: Intravenous: Omnipaque 350 contrast volume:100 mL COMPARISON: CT CT ABDOMEN PELVIS W from 04/28/2022 FINDINGS: Tracheobronchial tree: Patent where visualized. Pulmonary parenchyma: No consolidation or dominant measurable mass. No architectural distortion. Pulmonary Arteries: No evidence of filling defect to suggest pulmonary emboli. Mediastinum and Tanvi: No dominant adenopathy or fluid collection. The esophagus is unremarkable. Visualized thyroid gland: Unremarkable. Pleura: No effusion or pneumothorax. Heart: The heart is not dilated. No coronary artery calcifications are seen. No pericardial effusion. Aorta: Thoracic aorta non-dilated. No evidence of dissection. Upper abdomen: Unremarkable. Soft tissues: Unremarkable. Bones: Within normal limits for the patient's age. IMPRESSION: No evidence of pulmonary embolism, thoracic aortic dissection or aneurysm. RADIATION DOSE DELIVERED: 610.68mGy.cm Total DLP DATA REPOSITORY: All CT scans at this facility are submitted to the National Radiology Data Registry (NRDR) Dose Index Registry (DIR) with the [employer] (ACR). RADIATION OPTIMIZATION: All CT scans at this facility use at least one of these dose optimization te chniques: automated exposure control; mA and/or kV adjustment per patient size (includes targeted exa ms where dose is matched to clinical indication); or iterative reconstruction.
[2022-12-03] MEDS: Normal Saline 1,000 ML 1000 ML IV ×2 (21:47→23:43)
[2022-12-03] MEDS: Naloxone 0.4 MG/ML VIAL IVP (21:47)
[2022-12-03 22:04] LABS: Abs Immature Grans 0.11 10^3/uL (0.0-0.06); Absolute Eosinophil Count 0.02 10^3/uL (0.0-0.7); Basophils % 0.3; Eosinophils % 0.1; HCT 44.2 % (40.0-50.0); HGB 14.8 g/dL (13.5-17.5); Immature Grans % 0.6; Lymphocytes % 6.1; MCH 28.3 pg (27.0-33.0); MCHC 33.5 % (32.0-36.0); MCV 85 fL (80-95); MPV 9.2 fL (8.0-11.0); Monocytes % 7.4; Neutrophils % 85.5; Platelet Count 313 10^3/uL (130-400); RBC 5.23 10^6/uL (4.36-5.78); RDW 13.3 % (11.8-14.1); RDW-SD 41.4 fL; WBC 18.94 10^3/uL (4.4-10.8)
[2022-12-03 22:05] LABS: Absolute Basophil Count 0.06 10^3/uL (0.0-0.2); Absolute Lymphocyte Count 1.16 10^3/uL (1.2-3.4); Absolute Neutrophil Count 16.19 10^3/uL (1.2-6.7)
--- NOTE | 2022-12-03 22:05 | DI.VRAD_ITS ---
PROCEDURE INFORMATION: Exam: XR Chest Exam date and time: 12/03/2022 9:12 PM Age: 42 years old Clinical indication: Shortness of breath TECHNIQUE: Imaging protocol: Radiologic exam of the chest. Views: 1 view. COMPARISON: CR XR PORTABLE CHEST AP 05/16/2021 2:30 PM FINDINGS: Lungs: Opacities in the left base may represent atelectasis or pneumonia.. Pleural spaces: Unremarkable. No pleural effusion. No pneumothorax. Heart/Mediastinum: Unremarkable. No cardiomegaly. Bones/joints: Unremarkable. IMPRESSION: Opacities in the left base may represent atelectasis or pneumonia.. Dictated and Authenticated by: Lauren Bergeron MD. Ordering:PARK Lewis MD
[2022-12-03] MEDS: Omnipaque 350 MG/ML 100 ML BTL IJ (22:21)
[2022-12-03 22:22] LABS: ALT 21 U/L (16-63); AST 18 U/L (15-37); Albumin 3.7 g/dL (3.4-5.0); Alkaline Phosphatase 88 U/L (46-116); Anion Gap 7.2 mmol/L (3-11); BUN 18 mg/dL (7-18); Bilirubin, Total 0.4 mg/dL (0.2-1.0); CO2 29.8 mmol/L (21.0-32.0); CREATININE 2.7 mg/dL (0.70-1.30); Calcium 8.8 mg/dL (8.5-10.1); Chloride 96 mmol/L (98-107); ETHANOL BLOOD < 3.0 mg/dL (<10); Estimated GFR 29.08 (mL/min/1.73m2); Glucose 155 mg/dL (74-106); Sodium 133 mmol/L (136-145); Total Protein 8.2 g/dL (6.4-8.2)
[2022-12-03] MEDS: Normal Saline - Diluent 50 ML VIAL IV (22:22)
[2022-12-03 22:24] LABS: Potassium 2.9 mmol/L (3.5-5.1)
[2022-12-03 22:38] LABS: Magnesium 2.3 mg/dL (1.8-2.4)
[2022-12-03] MEDS: POTASSIUM CHLORIDE 20 MEQ/100 ML BAG 50 MEQ IVPB (22:39)
[2022-12-03] MEDS: Potassium Chloride 20 MEQ TABCR 40 MEQ PO (22:40)
--- NOTE | 2022-12-03 22:55 | DI.VRAD_ITS ---
PROCEDURE INFORMATION: Exam: CTA Chest With Contrast Exam date and time: 12/03/2022 10:18 PM Age: 42 years old Clinical indication: Shortness of breath TECHNIQUE: Imaging protocol: Computed tomographic angiography of the chest with contrast. Exam focused on the arteries. 3D rendering (Not supervised by radiologist): MIP and/or 3D reconstructed images were created by the technologist. Contrast material: OMNIPAQUE 350; Contrast volume: 100 ml; Contrast route: INTRAVENOUS (IV); COMPARISON: CR XR PORTABLE CHEST AP 12/03/2022 9:12 PM FINDINGS: Pulmonary arteries: Normal. No pulmonary emboli. Aorta: Unremarkable. No aortic aneurysm. No aortic dissection. Lungs: Unremarkable. No consolidation. No masses. Pleural spaces: Unremarkable. No pneumothorax. No pleural effusion. Heart: Unremarkable. No cardiomegaly. No pericardial effusion. Lymph nodes: Unremarkable. No enlarged lymph nodes. Liver: There is hepatic steatosis. There is small hiatal hernia. Bones/joints: Unremarkable. No acute fracture. Soft tissues: Unremarkable. IMPRESSION: 1. No pulmonary embolism or aortic dissection. 2. No focal consolidation or pleural effusion. Dictated and Authenticated by: Ra Manzano MD. Ordering:PARK Lewis MD
[2022-12-03 23:53] LABS: COVID-19 PCR Negative (Negative); Influenza A PCR Negative (Negative); Influenza B PCR Negative (Negative); RSV PCR Negative (Negative); Source Nasopharynx
[2022-12-04] VITALS (37 sets, daily range): BP systolic 79–123; BP diastolic 49–77; PULSE 62–87; RESP 8–17; O2SAT 87–96
[2022-12-04 00:14] LABS: *AMPHETAMINES SCREEN URINE Negative (Negative); *BARBITURATES SCREEN URINE Negative (Negative); *BENZODIAZEPINES SCREEN URINE Negative (Negative); Cannabinoids THC Negative (Negative); Cocaine Screen,Urine Positive (Negative); METHADONE URINE SCREEN Negative (Negative); OPIATES URINE SCREEN Negative (Negative)
[2022-12-04 00:16] LABS: Tricyclic Antidepressants Negative (Negative)
--- NOTE | 2022-12-04 00:29 | W.EDPROG ---
Date of service: 12/03/22 Time of Service: 23:00 Medical Decision Making MDM: Summary: Patient signed out to be by Dr. Carrasco who saw the patient after he overdosed on fentanyl and was unresponsive and hypoxic. Danilo did labs show a white count of 18,000 probably due to to the adrenaline surge but he was concerned about hypoxia for which he did a chest x-ray and a CT scan. Patient was given supplemental oxygen and also was hypotensive and was given fluids he continued receiving fluids and oxygen and now his vitals have stabilized with a blood pressure of 100/70 and oxygen saturation 93% on room air. Patient is ambulating he is urinating and feels better and would like to be discharged home. Data Review Analysis All the data on this patient was reviewed by me including laboratory and imaging studies as well as bedside studies performed by me Independent review of Studies Imaging CT scan of the chest chest x-ray as per Dr. Carrasco Lab: Labs as per Danilo Risk Stratification: Patient who received IV fluid resuscitation splint oxygen after he overdosed on fentanyl he is much better and has been observed in the emergency department for approximately 3 hours and will be discharged home Differential Diagnosis: 1. Opiate overdose 2. Aspiration pneumonia 3. Hypoxia 4. 5. Consultants: Shared disposition: Patient will be discharged home Impression: Medical Records Medical records reviewed: Yes I reviewed the patient's medical records. Lab Data Lab results reviewed: Yes I reviewed the patient's lab results. Exam Narrative Exam Narrative: Patient is much improved as per Dr. Carrasco's initial assessment with a normal oxygen saturation normal blood pressure and exam was unremarkable Sign Out Sign Out Data: Sign Out Comment: Patient initially overdosed, and was hypoxemic. During his stay he became hypotensive. CTA negative for acute process. Rehydrating. Follow-up/reassess after fluids. Last updated by Joshua Carrasco DO at 12/03/22 22:58 Discharge Plan Disposition Patient Disposition: Home Condition: Improving Discharge Details Clinical Impression: Hypoxemia, Hypotension, Accidental overdose, Opioid overdose Primary Care Provider: Amanda Ny ED Provider: Abram Morocho Home Meds and New Rx's Prescriptions: Continued albuterol sulfate [ProAir HFA] 90 mcg/actuation HFA aerosol inhaler 1 - 2 puff Inhalation Q4H MDD 24 inh/day PRN (Reason: bronchospasm) Qty: 17 3RF Rx Instructions: DX: ASTHMA Equivalent Ventolin may be substituted or other albuterol; if able, please dispense 2 inhalers at a time budesonide-formoterol [Symbicort] 160-4.5 mcg/actuation HFA aerosol inhaler See Rx Instructions .ROUTE .COMPLEX Qty: 30.6 3RF Dose Instruction: INHALE 2 PUFFS BY MOUTH TWICE DAILY FOR ASTHMA Rx Instructions: INHALE 2 PUFFS BY MOUTH TWICE DAILY FOR ASTHMA mupirocin 2 % ointment 1 applic topical BID-TID PRN (Reason: skin lesions) Qty: 15 0RF Rx Instructions: May substitute with cream if less expensive; apply thin layer until area/lesion resolved naltrexone 50 mg tablet 50 mg PO DAILY Qty: 30 0RF clonidine HCl 0.1 mg tablet 0.1 mg PO QHS Qty: 30 0RF cetirizine 10 mg tablet 10 mg PO DAILY Qty: 90 3RF Rx Instructions: DX: RUNNY NOSE AND ASTHMA lisinopril-hydrochlorothiazide 20-25 mg tablet 1 tab PO DAILY Qty: 90 3RF fluticasone propionate 50 mcg/actuation spray,suspension See Rx Instructions .ROUTE .COMPLEX Qty: 16 4RF Dose Instruction: SHAKE LIQUID AND USE 1 TO 2 SPRAYS IN EACH NOSTRIL DAILY NEEDED FOR ALLERGY SYMPTOMS Rx Instructions: SHAKE LIQUID AND USE 1 TO 2 SPRAYS IN EACH NOSTRIL DAILY NEEDED FOR ALLERGY SYMPTOMS buspirone 5 mg tablet See Rx Instructions .ROUTE .COMPLEX Qty: 180 3RF Dose Instruction: TAKE 2 TABLETS BY MOUTH ONCE DAILY FOR ANXIETY Rx Instructions: TAKE 2 TABLETS BY MOUTH ONCE DAILY FOR ANXIETY citalopram 20 mg tablet See Rx Instructions .ROUTE .COMPLEX Qty: 90 3RF Dose Instruction: TAKE 1 TABLET BY MOUTH DAILY Rx Instructions: TAKE 1 TABLET BY MOUTH DAILY naloxone 4 mg/actuation spray,non-aerosol 1 spray ARCHANA ONCE PRN (Reason: opioid overdose) Qty: 2 0RF Discharge Instructions Instructions: Opioid Use Disorder (ED) Discharge Data Discharge Physician: Abram Morocho
[2022-12-04 01:06] LABS: BE (Venous) 0 mmol/L (-2-3); HCO3 (Venous) 27 mmol/L (23-28); O2 Sat (Venous) 80 %; TCO2 (Venous) 25 mmol/L (24-29); pCO2 (Venous) 54 mmHg (41-51); pO2 (Venous) 44 mmHg
[2022-12-04] MEDS: Normal Saline 1,000 ML 1000 ML IV (01:07)
== END 2022-12-04 02:52 | disposition home or self-care (01) ==
PROVIDERS: Student in an Organized Health Care Education/Training Program; Emergency Provider Emergency Medicine Emergency Medical Services; PCP Nurse Practitioner Adult Health
DX: T40.2X1A Poisoning by other opioids, accidental (unintentional), initial encounter (principal); R09.02 Hypoxemia; I95.9 Hypotension, unspecified
CPT/HCPCS: 36415; 71275; 76604; 76705; 76775; 80053; 80307; 82805; 87637; 93308; 96361; 96365; 96366; 96375; 99285; 71045; 80320; 83735; 85025; 99284; J2310; J3480; J3490; J7512; J7620

== ENCOUNTER 2023-04-20 12:51 | Outpatient (REF) | payer MEDICAID, SELFPAY | END 2023-04-20 12:52 | disposition home or self-care (01) | LOC: NCHCN 12:51 | PROVIDERS: PCP Nurse Practitioner Adult Health; Visit Provider Physician Assistant Medical | DX: L08.9 Local infection of the skin and subcutaneous tissue, unspecified (principal) | CPT/HCPCS: 87077; 87070; 87186; 87205 ==

== ENCOUNTER 2023-05-04 16:23 | Emergency (ER) | payer MEDICAID, SELFPAY ==
[2023-05-04] VITALS (8 sets, daily range): BP systolic 98; BP diastolic 77; PULSE 85–100; RESP 13–22; TEMP 37.1; O2SAT 91–96
--- NOTE | 2023-05-04 16:38 | W.ED.GENAD ---
HPI General Date/Time Provider Initiated Documentation: 05/04/23 16:38. HPI Narrative: 43 year-old male presents to ED today by POV/ambulating with a chief complaint of R ankle pain, states he tweaked it and doesn't know whats wrong- is R-foot dominant with onset just prior to arrival. Quality described as painful, sharp pain at ankle, no radiation to complete numbness of toes, coolness to touch, does have scabs of varying ages on legs. Severity is described as 6-7/10. Palliating factors include nothing specific attempted. Provoking factors include nothing specific. Events leading up to the incident/Associated Symptoms: Patient has history IVDU, treated Hepatitis C x2 most recently treated last year. Patient [ ] anticoagulated. Related Data Home Medications Medication Instructions Recorded Confirmed naloxone 4 mg/actuation nasal spray 1 spray intranasal ONCE PRN opioid 08/21/18 05/04/23 overdose #2 ea cetirizine 10 mg tablet 10 mg PO DAILY #90 tabs 05/27/22 05/04/23 lisinopril 20 1 tab PO DAILY #90 tabs 05/27/22 05/04/23 mg-hydrochlorothiazide 25 mg tablet mupirocin 2 % topical ointment 1 applic topical BID-TID PRN skin 06/10/22 05/04/23 lesions #15 grams fluticasone propionate 50 See Rx Instructions .Route 07/20/22 05/04/23 mcg/actuation nasal .COMPLEX #16 grams spray,suspension citalopram 20 mg tablet See Rx Instructions .Route 11/15/22 05/04/23 .COMPLEX #90 tabs budesonide-formoterol HFA 160 See Rx Instructions .Route 12/15/22 05/04/23 mcg-4.5 mcg/actuation aerosol .COMPLEX #30.6 grams inhaler (Symbicort) buspirone 5 mg tablet See Rx Instructions .Route 12/15/22 05/04/23 .COMPLEX #180 tabs naltrexone 50 mg tablet 50 mg PO DAILY #30 tabs 12/15/22 05/04/23 albuterol sulfate 90 mcg/actuation 1 - 2 puff inhalation Q4H PRN 12/16/22 05/04/23 aerosol inhaler (ProAir HFA) bronchospasm #17 grams Previous Rx's Medication Instructions Recorded naloxone 4 mg/actuation nasal spray 1 spray intranasal ONCE PRN opioid 08/21/18 overdose #2 ea cetirizine 10 mg tablet 10 mg PO DAILY #90 tabs 05/27/22 lisinopril 20 1 tab PO DAILY #90 tabs 05/27/22 mg-hydrochlorothiazide 25 mg tablet mupirocin 2 % topical ointment 1 applic topical BID-TID PRN skin 06/10/22 lesions #15 grams fluticasone propionate 50 See Rx Instructions .Route 07/20/22 mcg/actuation nasal .COMPLEX #16 grams spray,suspension citalopram 20 mg tablet See Rx Instructions .Route 11/15/22 .COMPLEX #90 tabs budesonide-formoterol HFA 160 See Rx Instructions .Route 12/15/22 mcg-4.5 mcg/actuation aerosol .COMPLEX #30.6 grams inhaler (Symbicort) buspirone 5 mg tablet See Rx Instructions .Route 12/15/22 .COMPLEX #180 tabs naltrexone 50 mg tablet 50 mg PO DAILY #30 tabs 12/15/22 albuterol sulfate 90 mcg/actuation 1 - 2 puff inhalation Q4H PRN 12/16/22 aerosol inhaler (ProAir HFA) bronchospasm #17 grams Allergies Allergy/AdvReac Type Severity Reaction Status Date / Time Opioids - Morphine Analogues AdvReac Unknown (h/o Verified 01/19/23 17:57 addiction; wants to avoid where possible) dust Allergy Mild unknown Uncoded 01/19/23 17:57 hay Allergy Mild unknown Uncoded 01/19/23 17:57 pollen Allergy Mild unknown Uncoded 01/19/23 17:57 animal dander Allergy Unknown unknown Uncoded 01/19/23 17:57 General Stated Complaint: Orthopedic ASHTYN: 4 Review of Systems All systems reviewed & are unremarkable except as noted in HPI and below Exam Narrative Exam Narrative: GENERAL APPEARANCE: Well-nourished, non-toxic, awake and alert, atraumatic, no acute distress. SKIN: Warm, pink, dry, intact, mild cellulitis post-auricular R ear, diffuse scabs of varying ages on legs that he picks at, did just recent get treated for cellulitis. HEAD: Normocephalic, atraumatic, normal hair distribution for gender/age. EYES: Pupils PERRLA, EOMs intact without nystagmus, normal conjunctiva, no exudates on lids/lashes. ENT: Nares patent, no circumoral cyanosis, no facial swelling NECK: Supple, trachea midline, painless cervical ROM. LUNGS/CHEST: Lungs CTA bilaterally - no rhonchi/rales/wheezes diffusely, non-labored respirations, normal A/P diameter, symmetrical expansion, no chest wall deformity HEART (CV/PV): Regular rate and rhythm without murmur, no peripheral edema, no JVD. ABDOMEN: Soft, non-distended, no guarding, no tenderness. MSK: Normal ROM, no swelling/deformity to bilateral UEs or LEs, moving all extremities without weakness, no cyanosis, spine midline without tenderness, normal curvature. R LE: Significant swelling and bruising with mild deformity at the right ankle, dorsalis pedis pulse 2+, able to wiggle his toes, brisk capillary refill in all toes, no fibular head tenderness or calf pain, unable to bear weight NEURO: Mental Status AAOx4 - alert to person, place, time, events No facial droop, no forehead involvement. Motor: No focal weakness - strength 5/5 in bilateral UEs and LEs, proximal and distal, symmetric. Sensory: sensation intact to light touch globally. Gait normal: patient ambulated without ataxia into ED room. PSYCH: euthymic, cooperative, pleasant, appropriate speech Course Vital Signs Vital signs: Vital Signs Temperature 37.1 C 05/04/23 16:24 Pulse 100 H 05/04/23 16:24 Respiratory Rate 17 05/04/23 16:24 Blood Pressure 98/77 L 05/04/23 16:24 Pulse Oximetry 91 L 05/04/23 16:24 Temperature 37.1 C 05/04/23 16:24 Temperature Source Temporal Artery Scan 05/04/23 16:24 Pulse 100 H 05/04/23 16:24 Respiratory Rate 17 05/04/23 16:24 Respiratory Effort Normal, Non-Labored 05/04/23 16:30 Blood Pressure 98/77 L 05/04/23 16:24 Blood Pressure Position Sitting 05/04/23 16:24 Pulse Oximetry 91 L 05/04/23 16:24 Oxygen Delivery Method Room Air 05/04/23 16:24 Oxygen Flow Rate 0 05/04/23 16:24 Procedures Orthopedic Joint Reduction Joint #1: Time Out Performed: Yes Side: right Joint Reduction Location: ankle Analgesia: other (Patient received 1000mg APAP, 10mg Ketoralac, PO Ativan 1 dose 1 hour + prior, and 0.3mg/kg ketamine pain dosing prior to procedure) Technique used: direct manipulation Post-reduction neuro exam: intact Post-reduction vascular: intact Post Reduction X-Ray Obtained: Yes Post Reduction X-Ray Results: reduced Splint Applied: Yes Patient Tolerated Procedure: other Additional Comments: Patient had a rare reaction to pain dosing ketamine, he was aggressively holding his breath and clenching his entire body which made reduction difficult, his eyes were open and he was responsive but he was clenched so hard diffusely that he was turning red in the face, he did intermittently start to breathe with coaching and soothing techniques but he did have to be bagged for a brief 5 to 10 seconds before being able to spontaneously breathe through coaching again, he briefly desaturated to about 80% during this episode but was quickly comfortable and awake sitting upright at 100% SpO2 on room air, respiratory therapy did respond promptly when paged for this event. Medical Decision Making This dictation utilizes [id number] dictation software and may contain unedited grammatical errors. 43 y/o M presents to ED today with a chief complaint of R ankle pain, tweaked it. Fracture deformity to R ankle - NV intact distally. Patients' medical history: Hep C, IVDU, hx of cellulitis, asthma. Family and social history: current moderate tobacco use. Pertinent exam findings / vital signs include R LE: Significant swelling and bruising with mild deformity at the right ankle, dorsalis pedis pulse 2+, able to wiggle his toes, brisk capillary refill in all toes, no fibular head tenderness or calf pain, unable to bear weight. Differential / pathologies of concern include fracture / dislocation. Diagnostic studies of: -XR R Ankle - shows possible bimalleolar fracture with subluxation. Interventions of: -0.3mg/kg PAIN dose ketamine was administered for attempt with non-sedation reduction- patient began holding his breath aggressively, with brief desaturation to 82%- assistance and RT was called for and he was back up for 100% with 5-10 seconds of O2 and positive pressure bag ventilation and breathing coaching. I question whether this was true laryngospasm at pain dosing vs patients psychosomatic reaction. -Consulted Orthopaedics post-reduction, state is adequate for tonight, will surgically fixate tomorrow, request add-on labs for pre-op clearance, EKG, CXR ED Course/Assessment/Plan: 43-year-old male with a difficult reduction of his subluxed bimalleolar ankle fracture seen in the ED, Ortho was consulted his reduction was adequate until surgery can be performed tomorrow as this is an unstable ankle fracture. He was placed in a posterior and stirrup splint and provided crutches and recommended nonweightbearing as well as elevation this evening, n.p.o. after midnight, his mother will be staying with him and she is a former nurse, labs were performed as add on studies for preoperative clearance, he did have a mild white count, mild elevation of ESR, unremarkable chest x-ray, mildly elevated CRP, UDS was positive for cocaine that the patient has reportedly been sober and denies any substance use multiple times, we did find needle paraphernalia on his person in the ED. Findings not consistent with neurovascular compromise. Disposition of Bimalleolar Fracture of Right Ankle. Patient verbalized understanding of the plan and return to ED criteria and engaged in shared decision making. Medical Records Medical records reviewed: Yes I reviewed the patient's medical records. Imaging Data Radiologic Study: Imaging: X-Ray Radiologist's impression: Exam: XR Right Ankle Exam date and time: 05/04/2023 4:55 PM Age: 43 years old Clinical indication: Other: Post reduction TECHNIQUE: Imaging protocol: Radiologic exam of the right ankle. Views: 3 or more views. COMPARISON: No relevant prior studies available. FINDINGS: Bones/joints: There is an acute oblique fracture through the distal aspect of the right fibula with approximately 8 mm posterolateral and superior displacement of the distal fracture fragment as well as mild lateral angulation. There is minimal comminution along the posterosuperior aspect of the fracture line. There is medial subluxation of the distal tibia at the ankle mortise with marked widening of the medial aspect of the ankle mortise of up to 1.6 cm. There is also mild medial angulation of the talar dome. On the lateral view, there is a 1 cm long thin crescentic calcification along the posterior aspect of the distal right tibial epiphysis which could represent a small avulsion fracture off the posterior malleolus with approximately 2 mm displacement. Soft tissues: There is mild soft tissue swelling around the right ankle. IMPRESSION: 1. Mildly displaced fracture of the distal aspect of the right fibula, as described above. 2. Medial subluxation of the distal tibia at the ankle mortise, as described above. 3. Cannot exclude small minimally displaced avulsion fracture off the posterior malleolus, as described above. Dictated and Authenticated by: Raymond Murray MD. Ordering:IRON Lewis MD Radiologic Study #2: Imaging: X-Ray Radiologist's impression: Exam: XR Right Ankle Exam date and time: 05/04/2023 7:05 PM Age: 43 years old Clinical indication: Other: Post reduction TECHNIQUE: Imaging protocol: Radiologic exam of the right ankle. Views: 3 or more views. COMPARISON: CR XR ANKLE RT COMPLETE 05/04/2023 4:55 PM FINDINGS: Tubes, catheters and devices: There has been placement of a superimposed fiberglass cast since prior study. Bones/joints: Again noted is an oblique fracture of the distal aspect of the right fibula. Alignment is improved since prior study. There is now 4 mm posterolateral displacement of the distal fracture fragment, whereas this measured 8 mm on prior study. Again noted is medial subluxation of the distal aspect of the right tibia at the ankle mortise with widening of the medial malleolus of up to 1 cm; this measured 1.6 cm on prior study. Again noted is a thin crescentic calcification along the posterior cortex of the distal right tibial epiphysis, unchanged, which could represent a small minimally displaced avulsion fracture off the posterior malleolus. Soft tissues: There is mild soft tissue swelling around the right ankle, as on prior study. IMPRESSION: Improved alignment of the distal fibular fracture with decreased subluxation at the ankle mortise as described above. Dictated and Authenticated by: Raymond Murray MD. Ordering:RION Lewis MD Radiologic Study #3: Imaging: X-Ray Radiologist's impression: Exam: XR Chest Exam date and time: 05/04/2023 7:55 PM Age: 43 years old Clinical indication: Other: Pre-op planning TECHNIQUE: Imaging protocol: Radiologic exam of the chest. Views: 2 views. COMPARISON: CT CHEST PE CTA 12/03/2022 10:18 PM FINDINGS: Lungs: There is an 8 mm nodular density projecting at the lateral left lung base, which was not present on prior study. Lungs otherwise clear. There is no pulmonary vascular congestion. Pleural spaces: There are no pleural effusions present. There is no evidence of pneumothorax. Heart/Mediastinum: Heart size is near the upper limits of normal. Bones/joints: There is mild anterior wedging of a few adjacent mid-lower thoracic vertebra which appears chronic. IMPRESSION: 1. No active cardiopulmonary disease identified. 2. 8 mm nodular density projecting at the lateral left lung base, not present on prior study. Cannot exclude neoplastic pulmonary nodule on this exam. Recommend follow-up noncontrast chest CT on a nonemergent basis. Dictated and Authenticated by: aRymond Murray MD. Ordering:IRON Lewis MD Lab Data Lab results reviewed: Yes I reviewed the patient's lab results. Labs: Laboratory Tests Range/Units 05/04/23 05/04/23 19:29 19:40 WBC (4.4-10.8) 10^3/uL 13.74 H RBC (4.36-5.78) 10^6/uL 4.37 Hgb (13.5-17.5) g/dL 12.5 L Hct (40.0-50.0) % 37.2 L MCV (80-95) fL 85 MCH (27.0-33.0) pg 28.6 MCHC (32.0-36.0) % 33.6 RDW (11.8-14.1) % 13.0 Plt Count (130-400) 10^3/uL 296 MPV (8.0-11.0) fL 8.4 Immature Gran % 0.5 Neutrophils % 61.7 Lymphocytes % 25.8 Monocytes % 9.8 Eosinophils % 1.7 Basophils % 0.5 Nucleated RBC % (0.0-0.3) % 0.0 Absolute Neutrophils (1.2-6.7) 10^3/uL 8.48 H Absolute Lymphocytes (1.2-3.4) 10^3/uL 3.54 H Absolute Monocytes (0.1-0.8) 10^3/uL 1.35 H Absolute Eosinophils (0.0-0.7) 10^3/uL 0.23 Absolute Basophils (0.0-0.2) 10^3/uL 0.07 ESR (0-15) mm/hr 21 H PT (9.1-11.1) sec 11.0 INR (0.9-1.1) 1.1 Sodium (136-145) mmol/L 137 Potassium (3.5-5.1) mmol/L 3.2 L Chloride (98-107) mmol/L 100 Carbon Dioxide (21.0-32.0) mmol/L 30.6 Anion Gap (3-11) mmol/L 6.4 BUN (7-18) mg/dL 39 H Creatinine (0.70-1.30) mg/dL 1.9 H Est GFR (CKD-EPI 2020) (mL/min/1.73m2) 44.06 Glucose (74-106) mg/dL 93 Hemoglobin A1c (<5.7) % 6.0 H Calcium (8.5-10.1) mg/dL 8.9 Total Bilirubin (0.2-1.0) mg/dL 0.4 Conjugated Bilirubin (0.0-0.2) mg/dL 0.1 AST (15-37) U/L 87 H ALT (16-63) U/L 39 Alkaline Phosphatase (46-116) U/L 60 C-Reactive Protein (0.0-0.3) mg/dL 3.42 H Total Protein (6.4-8.2) g/dL 7.0 Albumin (3.4-5.0) g/dL 3.1 L Urine Opiates Screen (Negative) Negative Urine Methadone Screen (Negative) Negative Ur Barbiturates Screen (Negative) Negative Ur Tricyclics Screen (Negative) Negative Ur Amphetamines Screen (Negative) Negative U Benzodiazepines Scrn (Negative) Negative Urine Cocaine Screen (Negative) Positive A Ur THC Screen (Negative) Negative Quality:SDOH Health Related Social Needs: No Data to Display PFSH All Active Problems (Updated 05/04/23 @ 19:52 by FLORA Lomeli) Bimalleolar fracture of right ankle (Acute) Asthma (Chronic 11/26/13) PFTs 12/10/2013 severe obstructive disease & 11/2021-->airflow obstruction Essential hypertension (Chronic 01/07/14) Dx: 01/2014, RX Losartan & lifestyle Losartan dc'ed 02/2016 due to ins, changed to Lisinopril 07/2016: Higher-dose Lisinopril (20mg) caused GI probs, changed to Lisinopril-HCTZ 10-12.5mg Nicotine dependence (Chronic) Solitary right kidney (Chronic ~2017) Incidental finding on CT 11/2017 [facility] Depression (Chronic 03/08/16) [facility] Psychiatry 02/09/16 PHQ-9 score 15 mod severe Citalopram, stopped secondary to sexual side effects; resumed 04/2018 Multiple substance abuse (Chronic ~2014) Opioids (fentanyl, heroin, IVDA), cocaine 2014: [facility] [place] [facility], heroin,cocaine 05/18/17- 05/24/17: [facility] with discharge to [facility] (IV Fentanyl,IV cocaine) 10/2018: [facility] [place] [facility] early 2020: Relapse cocaine & fentanyl 02/2020: RUBY/Methadone 03/2022: [facility] [place] [facility] Opioid use disorder, severe, dependence (Acute) Cocaine use disorder, severe, dependence (Acute) 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 2 hepatic fibrosis (Chronic ~2017) Per [facility] in 2018 Fatty liver disease, nonalcoholic (Acute ~2017) stage 1 per [facility] [place] IFG (impaired fasting glucose) (Acute ~06/2022) A1C 6.1% Snoring (Acute) Medical History Abnormal liver enzymes ADHD (attention deficit hyperactivity disorder) (~11/2020) [facility] Psychiatry started adderall 11/2020 Akathisia Allergic rhinitis (11/26/13) Cannabis use disorder, severe, dependence Cellulitis of arm, right (~02/2022) IVDA De Quervain's disease (radial styloid tenosynovitis) (09/06/16) Right Ortho+Mobic+Splint Elevated serum creatinine Gastroenteritis History of hepatitis C (~2017) Hypokalemia due to excessive gastrointestinal loss of potassium (~04/2022) Intravenous drug abuse, episodic (07/04/17) IV Fentanyl and Cocaine 2018: [facility] admission followed by [facility] 2020: Relapse 02/2020: [facility] with Methadone treatment Nausea vomiting and diarrhea Opioid dependence in remission (02/09/16) Heroin--IVDA [facility] [place] [facility] 2015, then relapse, 2016 on Methadone 2018--IVDA (Fentanyl & Cocaine); [facility]; discharge on Earnest, Clonidine Surgical History H/O wisdom tooth extraction [place] teeth extracted Family History Mother Hyperlipidemia Substance abuse nicotine, EtOH Father No problems noted. Brother Asthma Maternal Aunt Lupus Maternal Aunt Celiac disease Paternal Grandfather Pancreatic cancer Social History Smoking/Tobacco Use Status: Current every day Tobacco Type: cigarettes Years smoked: 1 Tobacco: How many years used: 10 Smokeless tobacco user: other Quit status: not considering quitting Smoking risk assessment performed?: Yes Alcohol Intake: former Year quit: 2018 Drug use: Current Sobriety Substance use type: marijuana and heroin Details: GOES TO [facility]- did have relapse in past week of heroin and cocaine 05/25/22; no cannibas for over 2 months Adopted: No Household members: friend(s) Housing: house Number of Children: 2 number of grandchildren: 0 Communication Needs: None 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 [employer] Pets and animals: Yes (2 dogs) Pets and animals: dog(s) Do you think of yourself as: straight/heterosexual Current gender identity: male What type of physical activity do you participate in: none Seatbelt use: always Working smoke detector in home: Yes Fire extinguisher in home: Yes Do you feel safe at home: Yes Do you feel safe in your relationship?: Yes Discharge Plan Disposition Patient Disposition: Home Condition: Stable Discharge Details Clinical Impression: Bimalleolar fracture of right ankle Primary Care Provider: Amanda Ny ED Provider: Joshua Gonzales Home Meds and New Rx's Prescriptions: Continued mupirocin 2 % ointment 1 applic topical BID-TID PRN (Reason: skin lesions) Qty: 15 0RF Rx Instructions: May substitute with cream if less expensive; apply thin layer until area/lesion resolved cetirizine 10 mg tablet 10 mg PO DAILY Qty: 90 3RF Rx Instructions: DX: RUNNY NOSE AND ASTHMA lisinopril-hydrochlorothiazide 20-25 mg tablet 1 tab PO DAILY Qty: 90 3RF fluticasone propionate 50 mcg/actuation spray,suspension See Rx Instructions .ROUTE .COMPLEX Qty: 16 4RF Dose Instruction: SHAKE LIQUID AND USE 1 TO 2 SPRAYS IN EACH NOSTRIL DAILY NEEDED FOR ALLERGY SYMPTOMS Rx Instructions: SHAKE LIQUID AND USE 1 TO 2 SPRAYS IN EACH NOSTRIL DAILY NEEDED FOR ALLERGY SYMPTOMS naltrexone 50 mg tablet 50 mg PO DAILY Qty: 30 1RF buspirone 5 mg tablet See Rx Instructions .ROUTE .COMPLEX Qty: 180 3RF Dose Instruction: TAKE 2 TABLETS BY MOUTH ONCE DAILY FOR ANXIETY Rx Instructions: TAKE 2 TABLETS BY MOUTH ONCE DAILY FOR ANXIETY budesonide-formoterol [Symbicort] 160-4.5 mcg/actuation HFA aerosol inhaler See Rx Instructions .ROUTE .COMPLEX Qty: 30.6 3RF Dose Instruction: INHALE 2 PUFFS BY MOUTH TWICE DAILY FOR ASTHMA Rx Instructions: INHALE 2 PUFFS BY MOUTH TWICE DAILY FOR ASTHMA citalopram 20 mg tablet See Rx Instructions .ROUTE .COMPLEX Qty: 90 3RF Dose Instruction: TAKE 1 TABLET BY MOUTH DAILY Rx Instructions: TAKE 1 TABLET BY MOUTH DAILY albuterol sulfate [ProAir HFA] 90 mcg/actuation HFA aerosol inhaler 1 - 2 puff Inhalation Q4H PRN (Reason: bronchospasm) Qty: 17 3RF Rx Instructions: DX: ASTHMA Equivalent Ventolin may be substituted or other albuterol; if able, please dispense 2 inhalers at a time naloxone 4 mg/actuation spray,non-aerosol 1 spray ARCHANA ONCE PRN (Reason: opioid overdose) Qty: 2 0RF Discharge Instructions Instructions: Ankle Fracture (ED) Additional Instructions: You were seen in the emergency department for your bimalleolar unstable right ankle fracture. This needs to be fixed by surgery which has been arranged for you tomorrow here at [facility]. You should get a call around 8 AM from the orthopedic surgery team with an exact time of your surgery. Expected to likely be here around noon time and go home the same day. Please do not weight-bear on your ankle whatsoever while you are at home tonight, you need to elevate this and ice it if you can to relieve some pain and also reduce swelling. We did manually reduce your ankle here in the emergency department with adequate improvement until surgical definitive fixation could be performed. Nothing to eat or drink after midnight in preparation for surgery. We performed basic studies to ease the preoperative process tomorrow if you have any questions about the studies please asked the surgery team tomorrow. Referrals: [facility] [Provider Group] Amanda Ny, RESIDENTIAL ASSISTANT [Primary Care Provider] -
--- NOTE | 2023-05-04 16:45 | DI.RAD_ITS ---
Exam(s) XR ANKLE RT COMPLETE EXAM: XR ANKLE RT COMPLETE h CLINICAL HISTORY: R ankle pain, swelling. TECHNIQUE: 2D digital imaging was performed. COMPARISON: No exams were available for comparison FINDINGS: 3 views There is a displaced oblique fracture of the distal fibula with significant widening of the ankle mor tise. The medial malleolus and posterior malleolus appear intact. Talar dome appears unremarkable. Calcaneus unremarkable. Subtalar joint appears unremarkable. IMPRESSION: Displaced oblique fracture of distal fibula with significant widening of the ankle mortise. DATA REPOSITORY: RADIATION DOSE DELIVERED:
[2023-05-04] MEDS: Acetaminophen 500 MG TAB 1000 MG PO (17:46)
[2023-05-04] MEDS: Ketorolac 10 MG TAB PO (17:46)
[2023-05-04] MEDS: LORazepam 1 MG TAB PO (17:46)
--- NOTE | 2023-05-04 18:45 | DI.RAD_ITS ---
Exam(s) XR ANKLE RT COMPLETE EXAM: XR ANKLE RT COMPLETE CLINICAL HISTORY: post-reduction. TECHNIQUE: 2D digital imaging was performed. COMPARISON: CR,XR XR ANKLE RT COMPLETE from 05/04/2023 FINDINGS: 3 views Three post reduction in cast views reveal some improvement in alignment of the distal fibular fractur e and ankle joint alignment. There is still obvious widening of the ankle mortise. Talar dome unrem arkable. IMPRESSION: As above. DATA REPOSITORY: RADIATION DOSE DELIVERED:
[2023-05-04] MEDS: Ketamine 500 MG/10 ML VIAL 27 MG IVP (18:58)
--- NOTE | 2023-05-04 19:30 | DI.RAD_ITS ---
Exam(s) XR CHEST 2V PA LATERAL EXAM: XR CHEST 2V PA LATERAL CLINICAL HISTORY: pre-op planning, surgery tomorrow, smoker. TECHNIQUE: 2D digital imaging was performed. COMPARISON: CR,XR XR PORTABLE CHEST AP from 12/03/2022 FINDINGS: 2 views: Heart size is upper normal. The mediastinum is not widened. Right lung is clear. A small nodular infiltrate in the left lung base seen on the frontal view. Laura sures approximately 8 x 7 mm. No other focal lung findings and no pleural effusions. IMPRESSION: Small nodular infiltrate in the lower left lung field. Appropriate follow-up recommended. Consider CT scan. DATA REPOSITORY: RADIATION DOSE DELIVERED:
--- NOTE | 2023-05-04 19:30 | RT.EKG_ITS ---
APPROVED REPORT Exam: Resting ECG Reason for Exam: pre-op Patient Location: E HR:78 bpm ECG Measurements Heart Rate 78 AXIS VT 114 P 57 QRSd 103 QRS 1 QT 391 T 57 QTc 447 Conclusion Sinus rhythm...normal P axis, V-rate 60- 99 ST elev, probable normal early repol pattern...ST elevation, age<54 I have reviewed and interpreted ECG and agree with software generated interpretation.
--- NOTE | 2023-05-04 19:33 | DI.VRAD_ITS ---
PROCEDURE INFORMATION: Exam: XR Right Ankle Exam date and time: 05/04/2023 4:55 PM Age: 43 years old Clinical indication: Other: Post reduction TECHNIQUE: Imaging protocol: Radiologic exam of the right ankle. Views: 3 or more views. COMPARISON: No relevant prior studies available. FINDINGS: Bones/joints: There is an acute oblique fracture through the distal aspect of the right fibula with approximately 8 mm posterolateral and superior displacement of the distal fracture fragment as well as mild lateral angulation. There is minimal comminution along the posterosuperior aspect of the fracture line. There is medial subluxation of the distal tibia at the ankle mortise with marked widening of the medial aspect of the ankle mortise of up to 1.6 cm. There is also mild medial angulation of the talar dome. On the lateral view, there is a 1 cm long thin crescentic calcification along the posterior aspect of the distal right tibial epiphysis which could represent a small avulsion fracture off the posterior malleolus with approximately 2 mm displacement. Soft tissues: There is mild soft tissue swelling around the right ankle. IMPRESSION: 1. Mildly displaced fracture of the distal aspect of the right fibula, as described above. 2. Medial subluxation of the distal tibia at the ankle mortise, as described above. 3. Cannot exclude small minimally displaced avulsion fracture off the posterior malleolus, as described above. Dictated and Authenticated by: Raymond Murray MD. Ordering:IRON Lewis MD
--- NOTE | 2023-05-04 19:38 | DI.VRAD_ITS ---
PROCEDURE INFORMATION: Exam: XR Right Ankle Exam date and time: 05/04/2023 7:05 PM Age: 43 years old Clinical indication: Other: Post reduction TECHNIQUE: Imaging protocol: Radiologic exam of the right ankle. Views: 3 or more views. COMPARISON: CR XR ANKLE RT COMPLETE 05/04/2023 4:55 PM FINDINGS: Tubes, catheters and devices: There has been placement of a superimposed fiberglass cast since prior study. Bones/joints: Again noted is an oblique fracture of the distal aspect of the right fibula. Alignment is improved since prior study. There is now 4 mm posterolateral displacement of the distal fracture fragment, whereas this measured 8 mm on prior study. Again noted is medial subluxation of the distal aspect of the right tibia at the ankle mortise with widening of the medial malleolus of up to 1 cm; this measured 1.6 cm on prior study. Again noted is a thin crescentic calcification along the posterior cortex of the distal right tibial epiphysis, unchanged, which could represent a small minimally displaced avulsion fracture off the posterior malleolus. Soft tissues: There is mild soft tissue swelling around the right ankle, as on prior study. IMPRESSION: Improved alignment of the distal fibular fracture with decreased subluxation at the ankle mortise as described above. Dictated and Authenticated by: Raymond Murray MD. Ordering:IRON Lewis MD
[2023-05-04 19:46] LABS: Abs Immature Grans 0.07 10^3/uL (0.0-0.06); Absolute Basophil Count 0.07 10^3/uL (0.0-0.2); Absolute Lymphocyte Count 3.54 10^3/uL (1.2-3.4); Absolute Neutrophil Count 8.48 10^3/uL (1.2-6.7); Basophils % 0.5; Eosinophils % 1.7; HCT 37.2 % (40.0-50.0); HGB 12.5 g/dL (13.5-17.5); Immature Grans % 0.5; Lymphocytes % 25.8; MCH 28.6 pg (27.0-33.0); MCHC 33.6 % (32.0-36.0); MCV 85 fL (80-95); MPV 8.4 fL (8.0-11.0); Monocytes % 9.8; Neutrophils % 61.7; Platelet Count 296 10^3/uL (130-400); RBC 4.37 10^6/uL (4.36-5.78); RDW-SD 40.7 fL; WBC 13.74 10^3/uL (4.4-10.8)
[2023-05-04 19:48] LABS: Absolute Eosinophil Count 0.23 10^3/uL (0.0-0.7); Absolute Monocyte Count 1.35 10^3/uL (0.1-0.8)
[2023-05-04 19:55] LABS: *AMPHETAMINES SCREEN URINE Negative (Negative); *BARBITURATES SCREEN URINE Negative (Negative); *BENZODIAZEPINES SCREEN URINE Negative (Negative); Cannabinoids THC Negative (Negative); Cocaine Screen,Urine Positive (Negative); METHADONE URINE SCREEN Negative (Negative); OPIATES URINE SCREEN Negative (Negative)
[2023-05-04 19:57] LABS: INR 1.1 (0.9-1.1)
[2023-05-04 19:59] LABS: Tricyclic Antidepressants Negative (Negative)
[2023-05-04 20:02] LABS: ALT 39 U/L (16-63); AST 87 U/L (15-37); Albumin 3.1 g/dL (3.4-5.0); Alkaline Phosphatase 60 U/L (46-116); Anion Gap 6.4 mmol/L (3-11); BUN 39 mg/dL (7-18); Bilirubin, Direct 0.1 mg/dL (0.0-0.2); Bilirubin, Total 0.4 mg/dL (0.2-1.0); CO2 30.6 mmol/L (21.0-32.0); CREATININE 1.9 mg/dL (0.70-1.30); Calcium 8.9 mg/dL (8.5-10.1); Chloride 100 mmol/L (98-107); Estimated GFR 44.06 (mL/min/1.73m2); Glucose 93 mg/dL (74-106); Potassium 3.2 mmol/L (3.5-5.1); Sodium 137 mmol/L (136-145)
--- NOTE | 2023-05-04 20:11 | DI.VRAD_ITS ---
PROCEDURE INFORMATION: Exam: XR Chest Exam date and time: 05/04/2023 7:55 PM Age: 43 years old Clinical indication: Other: Pre-op planning TECHNIQUE: Imaging protocol: Radiologic exam of the chest. Views: 2 views. COMPARISON: CT CHEST PE CTA 12/03/2022 10:18 PM FINDINGS: Lungs: There is an 8 mm nodular density projecting at the lateral left lung base, which was not present on prior study. Lungs otherwise clear. There is no pulmonary vascular congestion. Pleural spaces: There are no pleural effusions present. There is no evidence of pneumothorax. Heart/Mediastinum: Heart size is near the upper limits of normal. Bones/joints: There is mild anterior wedging of a few adjacent mid-lower thoracic vertebra which appears chronic. IMPRESSION: 1. No active cardiopulmonary disease identified. 2. 8 mm nodular density projecting at the lateral left lung base, not present on prior study. Cannot exclude neoplastic pulmonary nodule on this exam. Recommend follow-up noncontrast chest CT on a nonemergent basis. Dictated and Authenticated by: Raymond Murray MD. Ordering:IRON Lewis MD
[2023-05-04] MEDS: Amoxicillin 875/Clav. 125 TAB PO (20:29)
[2023-05-04 21:04] LABS: ESR 21 mm/hr (0-15)
[2023-05-04 21:11] LABS: C-Reactive Protein 3.42 mg/dL (0.0-0.3)
[2023-05-05 18:58] LABS: Hepatitis C Ab w Rflx HCV PCR Reactive (Negative)
[2023-05-06 13:39] LABS: HCV RNA Qualitative Undetected (Undetected)
== END 2023-05-04 20:29 | disposition home or self-care (01) ==
PROVIDERS: Emergency Provider Physician Assistant; PCP Nurse Practitioner Adult Health
DX: S82.842A Displaced bimalleolar fracture of left lower leg, initial encounter for closed fracture (principal); I10 Essential (primary) hypertension; F17.210 Nicotine dependence, cigarettes, uncomplicated; X50.1XXA Overexertion from prolonged static or awkward postures, initial encounter; Y93.89 Activity, other specified; Y92.89 Other specified places as the place of occurrence of the external cause
CPT/HCPCS: 80053; 80076; 80307; 85652; 86803; 87522; 93005; 99284; 25605; 71046; 73610; 83036; 85025; 85610; 86140; 93010

== ENCOUNTER 2023-05-05 10:42 | Day surgery (SDC) | payer MEDICAID, SELFPAY ==
[2023-05-05] VITALS (9 sets, daily range): BP systolic 88–126; BP diastolic 42–80; PULSE 65–79; RESP 15–21; TEMP 36.2–36.7; O2SAT 93–100; BMI 37.8
--- NOTE | 2023-05-05 13:42 | W.ANESPRE ---
General Info Date of Service Date Performed: 05/05/23 Height: 5 ft 1 in Weight: 90.718 kg Body Mass Index (BMI): 37.8 Surgical Procedure: Operation Date: 05/05/23 16:40 Proposed Procedure Side Surgeon p Ankle ORIF Right Adam Brock MD Actual Procedure Side Surgeon p Ankle ORIF Right Adam Brock MD Meds Allergies and Home Medications Allergies Allergy/AdvReac Type Severity Reaction Status Date / Time Opioids - Morphine Analogues AdvReac Unknown (h/o Verified 01/19/23 17:57 addiction; wants to avoid where possible) dust Allergy Mild unknown Uncoded 01/19/23 17:57 hay Allergy Mild unknown Uncoded 01/19/23 17:57 pollen Allergy Mild unknown Uncoded 01/19/23 17:57 animal dander Allergy Unknown unknown Uncoded 01/19/23 17:57 Home Medication Medication Instructions Recorded naloxone 4 mg/actuation nasal spray 1 spray intranasal ONCE PRN opioid 08/21/18 overdose #2 ea cetirizine 10 mg tablet 10 mg PO DAILY #90 tabs 05/27/22 lisinopril 20 1 tab PO DAILY #90 tabs 05/27/22 mg-hydrochlorothiazide 25 mg tablet mupirocin 2 % topical ointment 1 applic topical BID-TID PRN skin 06/10/22 lesions #15 grams fluticasone propionate 50 See Rx Instructions .Route 07/20/22 mcg/actuation nasal .COMPLEX #16 grams spray,suspension citalopram 20 mg tablet See Rx Instructions .Route 11/15/22 .COMPLEX #90 tabs budesonide-formoterol HFA 160 See Rx Instructions .Route 12/15/22 mcg-4.5 mcg/actuation aerosol .COMPLEX #30.6 grams inhaler (Symbicort) buspirone 5 mg tablet See Rx Instructions .Route 12/15/22 .COMPLEX #180 tabs naltrexone 50 mg tablet 50 mg PO DAILY #30 tabs 12/15/22 albuterol sulfate 90 mcg/actuation 1 - 2 puff inhalation Q4H PRN 12/16/22 aerosol inhaler (ProAir HFA) bronchospasm #17 grams Current Visit Medications: Current Medications Generic Name Dose Route Start Last Admin Trade Name Freq PRN Reason Stop Dose Admin Ringer's Solution 1,000 mls @ 60 mls/hr 05/05/23 06:00 IV 05/05/23 23:59 INFUSION REBECCA Cefazolin Sodium/Dextrose 2 gm in 50 mls @ 100 mls/hr 05/05/23 06:00 Ancef Duplex IVPB 05/05/23 23:59 PREOP REBECCA Vancomycin/PEG/NADA/Lysine/Water 1.5 gm in 300 mls @ 200 mls/hr 05/05/23 06:00 Vancocin Injection IVPB 05/05/23 16:00 PREOP REBECCA IV Miscellaneous Supplies 1 each 05/05/23 06:00 Iv Access IV 05/05/23 23:59 DIRECTED REBECCA Sodium Chloride 0 ml 05/05/23 06:00 Normal Saline Flush 10 Ml Syr IV 05/05/23 23:59 PRN PRN Sodium Chloride 0 ml 05/05/23 06:00 Normal Saline 10 Ml Vial IJ 05/05/23 23:59 DIRECTED PRN Sterile Water 0 ml 05/05/23 06:00 Water,Injection,Sterile 10 Ml Vial IJ 05/05/23 23:59 DIRECTED PRN PFSH Active Problems Active Problems: Problem Status Onset Code Bimalleolar fracture of right ankle S82.841A Asthma 11/26/13 J45.909 Essential hypertension 01/07/14 I10 Nicotine dependence F17.200 Solitary right kidney ~2017 Q60.0 Depression 03/08/16 F32.9 Multiple substance abuse ~2014 F19.10 Opioid use disorder, severe, dependence F11.20 Cocaine use disorder, severe, dependence F14.20 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 2 hepatic fibrosis ~2017 B18.2, K74.00 Fatty liver disease, nonalcoholic ~2017 K76.0 IFG (impaired fasting glucose) ~06/2022 R73.01 Snoring R06.83 Medical History Medical History Abnormal liver enzymes ADHD (attention deficit hyperactivity disorder) (~11/2020) [facility] Psychiatry started adderall 11/2020 Akathisia Allergic rhinitis (11/26/13) Cannabis use disorder, severe, dependence Cellulitis of arm, right (~02/2022) IVDA De Quervain's disease (radial styloid tenosynovitis) (09/06/16) Right Ortho+Mobic+Splint Elevated serum creatinine Gastroenteritis History of hepatitis C (~2017) Hypokalemia due to excessive gastrointestinal loss of potassium (~04/2022) Intravenous drug abuse, episodic (07/04/17) IV Fentanyl and Cocaine 2018: [place] admission followed by Iain Valdez 2020: Relapse 02/2020: RUBY with Methadone treatment Nausea vomiting and diarrhea Opioid dependence in remission (02/09/16) Heroin--[facility] [place] [facility] 2014, then relapse, 2016 on Methadone 2018--IVDA (Fentanyl & Cocaine); [facility] [place] [facility] by Iain Valdez; discharge on Earnest, Clonidine Surgical History Surgical History H/O wisdom tooth extraction Marine teeth extracted Tobacco Smoking/Tobacco Use Status: Current every day Tobacco Type: cigarettes Smoking cigarettes per day: 12 Years smoked: 5 Smokeless tobacco user: other Alcohol Alcohol Intake: former Year quit: 2018 Substance Use Substance use type: marijuana and heroin Details: GOES TO [facility]- did have relapse in past week of heroin and cocaine 05/25/22; no cannibas for over 2 months Vital Signs and Lab Results Vital Signs Most Recent Vital Signs in EMR: Most Recent Vital Signs Temp Pulse Resp BP Pulse Ox 36.6 C 78 16 119/59 L 100 05/05/23 11:29 05/05/23 11:29 05/05/23 11:29 05/05/23 11:29 05/05/23 11:29 Lab Results Blood Type / Crossmatch: No Data to Display Complete Blood Count: White Blood Count 13.74 10^3/uL (4.4-10.8) H 05/04/23 19:40 Red Blood Count 4.37 10^6/uL (4.36-5.78) 05/04/23 19:40 Hemoglobin 12.5 g/dL (13.5-17.5) L 05/04/23 19:40 Hematocrit 37.2 % (40.0-50.0) L 05/04/23 19:40 Platelet Count 296 10^3/uL (130-400) 05/04/23 19:40 Complete Metabolic Panel: Sodium 137 mmol/L (136-145) 05/04/23 19:40 Potassium 3.2 mmol/L (3.5-5.1) L 05/04/23 19:40 Chloride 100 mmol/L (98-107) 05/04/23 19:40 Carbon Dioxide 30.6 mmol/L (21.0-32.0) 05/04/23 19:40 BUN 39 mg/dL (7-18) H 05/04/23 19:40 Creatinine 1.9 mg/dL (0.70-1.30) H 05/04/23 19:40 Est GFR (CKD-EPI 2020) 44.06 (mL/min/1.73m2) 05/04/23 19:40 Calcium 8.9 mg/dL (8.5-10.1) 05/04/23 19:40 Albumin 3.1 g/dL (3.4-5.0) L 05/04/23 19:40 Glucose 93 mg/dL (74-106) 05/04/23 19:40 Hemoglobin A1c 6.0 % (<5.7) H 05/04/23 19:40 C-Reactive Protein 3.42 mg/dL (0.0-0.3) H 05/04/23 19:40 Liver Function Panel: Alanine Aminotransferase (ALT/SGPT) 39 U/L (16-63) 05/04/23 19:40 Aspartate Amino Transf (AST/SGOT) 87 U/L (15-37) H 05/04/23 19:40 Coagulation Panel: INR International Normalized Ratio 1.1 (0.9-1.1) 05/04/23 19:40 Prothrombin Time 11.0 sec (9.1-11.1) 05/04/23 19:40 Cardiac Panel: No Data to Display Arterial Blood Gas: No Data to Display Venous Blood Gas: No Data to Display Pancreas Panel: No Data to Display Thyroid Panel: No Data to Display Infectious Disease: No Data to Display Blood Cultures: No Data to Display Toxicology Panel: Urine Amphetamines Screen Negative (Negative) 05/04/23 19:29 Urine Benzodiazepines Screen Negative (Negative) 05/04/23 19:29 Urine Barbiturates Screen Negative (Negative) 05/04/23 19:29 Urine Cocaine Screen Positive (Negative) A 05/04/23 19:29 Urine Methadone Screen Negative (Negative) 05/04/23 19:29 Urine Opiates Screen Negative (Negative) 05/04/23 19:29 Ur Tricyclic Antidepressants Screen Negative (Negative) 05/04/23 19:29 Ur Tetrahydrocannabinol (THC) Scrn Negative (Negative) 05/04/23 19:29 Imaging and Studies Imaging and Studies Study information below may be from another EMR and interpreted by another provider. Please see original notes in EMR for more complete details. EKG Summary: 05/27: sinus rhythm. Pulmonary Function Summary: 11/23: moderate airflow obstruction. Anesthesia Assessment and Plan Anesthesia History Personal History: Other Family History: No Family History of Anesthesia Complications Exercise Tolerance Exercise Tolerance: Metabolic Equivalents>4 Pertinent Negatives Pertinent Negatives: No Symptoms of GERD, No Major Cardiovascular Symptoms or Complaints and No History of CVA/TIA Cardiac & Pulmonary Exam Cardiac Exam: Normal S1/S2 Heart Sounds Pulmonary Exam: Clear Bilateral Breath Sounds Implantable Cardiac Device Does patient have a Pacemaker or an ICD?: No Airway Exam Known Difficult Airway: No Mallampati Class: 3 Mouth Opening: Narrow (< 3cm) Thyromental Distance: Greater than 3 cm Neck Range of Motion: Full ROM Neck Circumference: Thick Teeth Condition: Normal Dentition ASA Classification ASA Score: ASA 3 Emergency Case?: Yes NPO Status NPO Status: NPO Clears >2 hours, Solids >8 hours Anesthesia Plan Resuscitation Status: Full Code Anesthesia Technique: General Anesthesia Airway Planned: LMA Pain Management: Surgeon and patient request nerve block Monitors Used: Standard Monitors Preoperative Comments:: 43 yo male for ankle repair. Sig PMHx: Asthma (albuterol, symbicort), HTN (lisinopril, HCTZ), right lung nodule, depression/adhd, NAV[place], history of IVDU/cocaine (naltrexone), hep c, current tobacco, former EtOH, single kidney (last GFR 80) Plan: GA/LMA, preop adductor/popliteal blocks.
--- NOTE | 2023-05-05 14:03 | PDOC.DSDIS_ITS ---
Date of service: 05/05/23 Time of Service: 16:30 Discharge Plan Disposition Patient Disposition: Home Condition: Stable Discharge Details Attending Provider: Adam Brock Primary Care Provider: Amanda Ny Home Meds and New Rx's Prescriptions: New sulfamethoxazole-trimethoprim [Bactrim DS] 800-160 mg tablet 1 tab PO BID 14 Days Qty: 28 0RF permethrin 5 % cream 1 applic topical Q14D Qty: 60 0RF Rx Instructions: Leave application on for 12 hours. Apply second treatment 14 days after first treatment if live lice remain aspirin 81 mg tablet,delayed release (DR/EC) 81 mg PO DAILY 14 Days Qty: 14 0RF Continued mupirocin 2 % ointment 1 applic topical BID-TID PRN (Reason: skin lesions) Qty: 15 0RF Rx Instructions: May substitute with cream if less expensive; apply thin layer until area/lesion resolved cetirizine 10 mg tablet 10 mg PO DAILY Qty: 90 3RF Rx Instructions: DX: RUNNY NOSE AND ASTHMA lisinopril-hydrochlorothiazide 20-25 mg tablet 1 tab PO DAILY Qty: 90 3RF fluticasone propionate 50 mcg/actuation spray,suspension See Rx Instructions .ROUTE .COMPLEX Qty: 16 4RF Dose Instruction: SHAKE LIQUID AND USE 1 TO 2 SPRAYS IN EACH NOSTRIL DAILY NEEDED FOR ALL ERGY SYMPTOMS Rx Instructions: SHAKE LIQUID AND USE 1 TO 2 SPRAYS IN EACH NOSTRIL DAILY NEEDED FOR ALLERGY SYMPTOMS naltrexone 50 mg tablet 50 mg PO DAILY Qty: 30 1RF buspirone 5 mg tablet See Rx Instructions .ROUTE .COMPLEX Qty: 180 3RF Dose Instruction: TAKE 2 TABLETS BY MOUTH ONCE DAILY FOR ANXIETY Rx Instructions: TAKE 2 TABLETS BY MOUTH ONCE DAILY FOR ANXIETY budesonide-formoterol [Symbicort] 160-4.5 mcg/actuation HFA aerosol inhaler See Rx Instructions .ROUTE .COMPLEX Qty: 30.6 3RF Dose Instruction: INHALE 2 PUFFS BY MOUTH TWICE DAILY FOR ASTHMA Rx Instructions: INHALE 2 PUFFS BY MOUTH TWICE DAILY FOR ASTHMA citalopram 20 mg tablet See Rx Instructions .ROUTE .COMPLEX Qty: 90 3RF Dose Instruction: TAKE 1 TABLET BY MOUTH DAILY Rx Instructions: TAKE 1 TABLET BY MOUTH DAILY albuterol sulfate [ProAir HFA] 90 mcg/actuation HFA aerosol inhaler 1 - 2 puff Inhalation Q4H PRN (Reason: bronchospasm) Qty: 17 3RF Rx Instructions: DX: ASTHMA Equivalent Ventolin may be substituted or other albuterol; if able, please dispense 2 inhalers at a time naloxone 4 mg/actuation spray,non-aerosol 1 spray ARCHANA ONCE PRN (Reason: opioid overdose) Qty: 2 0RF Discharge Instructions Additional Instructions: Surgery: Right ankle & syndesmosis ORIF Activity: Non-weightbearing right ankle with crutches. May rest splint gently on ground while standing. Strict elevation to minimize swelling and discomfort. Wiggle toes to improve circulation and prevent stiffness. Physical therapy prescription will be provided on follow-up if needed. Prescriptions: Aspirin 81mg take 1 every day for 2 weeks to prevent blood clot, start tomorrow morning Bactrim DS take 1 twice daily for 2 weeks to prevent infection Permethrin topical cream as directed to treat scabies You may use [id number] ibuprofen 600 mg every 8 hours for moderate to severe pain, use no more than leg for the next 5-7 days. Take with food and/or full glass of water. You may use [id number] Tylenol (acetaminophen) as needed for mild to moderate pain. These pain medications may be taken all at once or in different combinations as needed. Dressings: Leave splint and dressing in place until follow-up. Keep clean and dry at all times. Follow-up: 10-[address] Brock You may take off the leg compression stockings this evening at home. You may also leave them on a few days longer if you have a history of leg swelling or edema. Let us know right away if you develop any redness, drainage, fevers, chest pain, or trouble breathing. Do not drink alcohol or drive for at least 24 hours after anesthesia. Please call the office during business hours with any questions or concerns. Discharge Orders Discharge Orders: Discharge Order (Routine); Ordered 05/05/23 Ordered By: Evaristo March DS: Diagnosis Discharge Diagnosis (1) Closed right ankle fracture: Status: Acute
[2023-05-05] MEDS: Lactated Ringers 1,000 ML 60 ML IV (14:04)
[2023-05-05] MEDS: VANCOMYCIN/WATER (PEG) 1.5 GM/300 ML BAG IVPB (14:05)
--- NOTE | 2023-05-05 14:08 | W.ORTHOCONSU ---
Date of service: 05/05/23 Time of Service: 13:10 Assessment and Plan Assessment and plan (1) Closed right ankle fracture: Status: Acute Assessment and plan: 43-year-old male 1 day status post right ankle distal fibula fracture, lateral dislocation, and probable syndesmotic disruption Patient describes miss stepping and injuring his right ankle. Also hit his left forehead. Evaluated in the emergency room yesterday with closed reduction partially successful of dislocation but not of ankle talus/mortise. Denies any pre-existing orthopedic problems about the right ankle. Has been home with his mother last night apparently elevating. Significant complicating drug abuse history, hepatitis C, asthma current smoker, single/solitary kidney. With help of his mother, more complete history especially medical history is provided. Patient denies any current drug abuse at this time, but has used cocaine over the past few Saturdays and heroin before that when it was an option. He has been treated twice for hepatitis C, unclear resolution. Still currently abusing heroin, fentanyl, and cocaine. Probable active scabies given sleeping in various unclean locations and rashes on his body now. Has had in the past. Also recently completed what sounds like MRSA cellulitis and skin wound treatment including on this right foot heel and ankle from wounds either from injection sites or from scratching at the skin. Bactrim was successful in clearing the most recent infection about a week ago. Denies any significant pain at this time, numbness, or tingling. Right leg foot and ankle examined. Multiple excoriations, scabs, and red areas from either scabies, small infections, healed infections of various stages. Significant ankle edema and swelling. Unable to test ankle wrinkles at this time. Leg musculature all compartments soft. Intact sensation without paresthesias superficial peroneal, deep peroneal, and tibial nerves. Demonstrates great toe flexion extension and wiggles toes without much difficulty. Reasonable capillary refill. 1+ due to edema dorsalis pedis pulse. Right ankle x-rays pre and postreduction show straight lateral dislocation, distal oblique about August B fibular fracture, with modest improvement in partial correction from dislocation and lateral displacement. Intact medial malleolus and posterior malleolus. Postreduction films show possible syndesmotic injury with lack of tib-fib overlap. Discussed thoroughly with patient and her mother. Complex social and medical problems. Very high risk for a problem like noncompliance, ORIF failure, healing failure, and infection. Need to assess swelling in operating room. If appropriate, we will proceed with definitive ORIF today. If swelling too much, will do closed reduction and splinting and allow soft tissue time to improve. Will start treatment for scabies. Will resume treatment for MRSA infection on his legs given surgery site adjacent to recent infections. Previously tolerated Bactrim without issue. Avoid narcotics. Optimize pain control with regional anesthesia, local anesthesia, elevation to minimize swelling, and acetaminophen and NSAID use judiciously given 1 kidney. Significant time spent reviewing chart, discussing case with colleagues, [employer] team, patient and his mother. Reviewing the heightened risk for problems and social as well as medical challenges to successful result. I was very honest with the patient and his mother that if there are any major complications, I would not be able to handle them here at [facility]. Could result in need for tertiary care and failure due to bad MRSA infection could result in amputation. Decision to proceed with surgery today right ankle open reduction internal fixation, possible syndesmotic fixation versus closed reduction and splinting The risks, benefits, and alternatives were thoroughly discussed. Patient was counseled regarding pain management, expected postoperative course, and recovery timeline. All questions were answered. Informed consent was obtained. Agree and understand treatment plan. Follow up 10-14 days after surgery. Will call if any changes or concerns. Breathing comfortably on room air. No coughs or wheezes. 1+ right dorsalis pedis pulse. Regular rate and rhythm. [facility] All Active Problems (Updated 05/05/23 @ 14:09 by Adam Brock MD) Closed right ankle fracture (Acute 05/04/23) Asthma (Chronic 11/26/13) PFTs 12/10/2013 severe obstructive disease & 11/2021-->airflow obstruction Essential hypertension (Chronic 01/07/14) Dx: 01/2014, RX Losartan & lifestyle Losartan dc'ed 02/2016 due to ins, changed to Lisinopril 07/2016: Higher-dose Lisinopril (20mg) caused GI probs, changed to Lisinopril-HCTZ 10-12.5mg Nicotine dependence (Chronic) Solitary right kidney (Chronic ~2017) Incidental finding on CT 11/2017 [facility] Depression (Chronic 03/08/16) [facility] Psychiatry 02/09/16 PHQ-9 score 15 mod severe Citalopram, stopped secondary to sexual side effects; resumed 04/2018 Multiple substance abuse (Chronic ~2014) Opioids (fentanyl, heroin, IVDA), cocaine 2015: [facility], heroin,cocaine 05/18/17- 05/24/17: [facility] 10/2018: [facility] early 2020: Relapse cocaine & fentanyl 02/2020: [facility]/Methadone 03/2022: [facility] Opioid use disorder, severe, dependence (Acute) Cocaine use disorder, severe, dependence (Acute) 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 2 hepatic fibrosis (Chronic ~2017) Per [facility] in 2018 Fatty liver disease, nonalcoholic (Acute ~2017) stage 1 per [facility] 2018 IFG (impaired fasting glucose) (Acute ~06/2022) A1C 6.1% Snoring (Acute) Medical History Abnormal liver enzymes ADHD (attention deficit hyperactivity disorder) (~11/2020) [facility] Psychiatry started adderall 11/2020 Akathisia Allergic rhinitis (11/26/13) Cannabis use disorder, severe, dependence Cellulitis of arm, right (~02/2022) IVDA De Quervain's disease (radial styloid tenosynovitis) (09/06/16) Right Ortho+Mobic+Splint Elevated serum creatinine Gastroenteritis History of hepatitis C (~2017) Hypokalemia due to excessive gastrointestinal loss of potassium (~04/2022) Intravenous drug abuse, episodic (07/04/17) IV Fentanyl and Cocaine 2018: [facility] [place] [facility] followed by [facility] 2020: Relapse 02/2020: [facility] with Methadone treatment Nausea vomiting and diarrhea Opioid dependence in remission (02/09/16) Heroin--IVDA [facility] 2014, then relapse, 2016 on Methadone 2017--IVDA (Fentanyl & Cocaine); [facility] [place] [place] followed [facility]; discharge on Earnest, Clonidine Surgical History H/O wisdom tooth extraction [place] teeth extracted Family History Mother Hyperlipidemia Substance abuse nicotine, EtOH Father No problems noted. Brother Asthma Maternal Aunt Lupus Maternal Aunt Celiac disease Paternal Grandfather Pancreatic cancer Social History Smoking/Tobacco Use Status: Current every day Tobacco Type: cigarettes Years smoked: 5 Tobacco: How many years used: 10 Smokeless tobacco user: other Quit status: not considering quitting Smoking risk assessment performed?: Yes Alcohol Intake: former Year quit: 2018 Substance use type: marijuana and heroin Details: [facility] did have relapse in past week of heroin and cocaine 05/25/22; no cannibas for over 2 months Adopted: No Household members: friend(s) Housing: house Number of Children: 2 number of grandchildren: 0 Communication Needs: None 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
--- NOTE | 2023-05-05 14:23 | W.ANESNERVE ---
Nerve Block Single Injection Procedure Date and Time Date Performed: 05/05/23 Procedure Start: 14:07 Location Where Procedure Performed Procedure Location: Day Surgery Unit Reason Performed: Postoperative Analgesia Requesting Provider: Adam Brock Timeout Performed Timeout Performed: Yes Monitoring Used ECG, Blood Pressure, SpO2 and ETCO2 Sterility Sterility: Hand Hygiene, Surgical Cap, Surgical Mask, Sterile Gloves and Chlorhexidine Sedation Given During Procedure Sedation Given (Indicate Dose Given): Versed IV Dose:: 2 mg Patient Mental Status Patient Mental Status: Sedate with meaningful communication Nerve Block 1st Nerve Block: Laterality: Right Block Type: Adductor Canal Ultrasound Image Saved?: Yes Needle / Catheter Used: 100mm SonoPlex II Local Anesthetic Bolus (Indicate Dose Given): Lidocaine used for local infiltration of skin, Injected in 3-5ml increments after negative blood aspiration and Bupivacaine 0.25% Dose:: 10 ml Additives (Indicate Dose Given): Precedex Dose:: 25 mcg Ultrasound: Sterile probe cover and gel used Nerve Stimulator: Supplement to Ultrasound use and No twitch or parasthesia noted < 0.5 mA Paresthesia: None Procedure Tolerated: No Complications and Patient tolerated well Procedure Outcome: Successful Performed By: Travon Loco 2nd Nerve Block: Laterality: Right Block Type: Popliteal Sciatic Ultrasound Image Saved?: Yes Needle / Catheter Used: 100mm SonoPlex II Local Anesthetic Bolus (Indicate Dose Given): Lidocaine used for local infiltration of skin, Injected in 3-5ml increments after negative blood aspiration and Bupivacaine 0.5% Dose:: 20 ml Additives (Indicate Dose Given): Precedex Dose:: 25 mcg Ultrasound: Sterile probe cover and gel used Nerve Stimulator: Supplement to Ultrasound use and No twitch or parasthesia noted < 0.5 mA Paresthesia: None Procedure Tolerated: No Complications and Patient tolerated well Procedure Outcome: Successful Procedure Comment: Patient consistently moving during block. I followed the patient and did not advance needle as patient moved. Performed By: Travon Loco
--- NOTE | 2023-05-05 14:23 | W.ANESVAS ---
Midline Placement Date Performed: 05/05/23 Procedure Time: 14:00 Requesting Provider: Clint Pedraza Procedure Location: Day Surgery Unit Sedation Given (Indicate Dose Given): No Sedation given Patient Mental Status: Awake Sterility: Hand Hygiene, Surgical Cap, Surgical Mask, Sterile Gloves and Chlorhexidine Laterality: Left Insertion Site: Brachial Midline Device: PowerGlide Pro 18G Catheter Length: 10 cm Midline Procedure Procedure: 1% Lidocaine to skin and subcutaneous tissue with 25g needle and Catheter placed without resistance Dressing: Tegaderm Applied Blood Return: Present Flushes: Easily Ultrasound: Sterile probe cover and gel used Ultrasound Image Saved?: Yes Number of Attempts (See previous attempts in note section): 1 Procedure Tolerated: No Complications Procedure Outcome: Successful Performed By: Clint Pedraza
[2023-05-05] MEDS: ceFAZolin 2 GM/50 ML BAG IVPB (14:39)
[2023-05-05] MEDS: Bupivacaine 0.25% Pres-Free 10 ML VIAL (15:26)
[2023-05-05] MEDS: EPINEPHrine 10 MG/10 ML ML (15:26)
--- NOTE | 2023-05-05 16:18 | DI.RAD_ITS ---
Exam(s) XR ANKLE RT 2V EXAM: XR ANKLE RT 2V CLINICAL HISTORY: orif rt ankle. TECHNIQUE: 2D digital imaging was performed. COMPARISON: No exams were available for comparison FINDINGS: Fluoroscopy provided during ORIF right ankle fracture See procedure report for details. Total fluoroscopy time 17.9 seconds IMPRESSION: Radiation exposure index/cumulative dose: Bambir= 0.55 mGy DATA REPOSITORY: RADIATION DOSE DELIVERED:
--- NOTE | 2023-05-05 16:42 | W.PM.OP ---
Date of service: 05/05/23 Time of Service: 15:00 Operative Note Operative Note DATE OF PROCEDURE: 05/05/23 PRE-OP DIAGNOSIS: Right ankle fracture dislocation POST-OP DIAGNOSIS: same PROCEDURE: 1. Right lateral malleolus ORIF, CPT #60841 2. 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 Procedure Description: In the operating room, general anesthesia was induced. The patient was positioned supine on the operating room table. All bony prominences were well-padded. Preoperative antibiotics were administered including usual cefazolin and weight-based vancomycin for MRSA coverage. The right ankle was prepped and draped in the usual sterile fashion including meticulous cleansing of the numerous wounds about the left leg foot and ankle. The toes foot and hindfoot were covered, Ioban covered all exposed skin about the leg. The correct patient, procedure, and side of the procedure were all verified prior to incision. The direct lateral approach to the distal fibula was taken centered about the fracture site extended proximally distally as needed. Fracture site was readily exposed, exaggerated cleansed of fibrinous material, fracture david posterior superior and anterior lateral found, fracture grossly reduced and clamped in place with bone forceps. Adequate lateral fibular bone was exposed for plate placement. Lag screw was omitted as syndesmotic screws would be needed at the same level. Plate was applied laterally, secured with compression screw proximal to fracture site, ensured to be in optimal position and then secured distally to fracture with another bicortical compression screw. The most distal screw was drilled bicortically and then filled unit cortically with a 4.0 mm cancellous screw. The remaining 2 proximal screw holes were drilled bicortically and filled with cortex screws. The anterior syndesmosis could be clearly visualized ruptured and disrupted from the fibula. Lateral x-rays now showed a posterior malleolus alphonso or syndesmotic avulsion fragment. Stress external rotation images were then taken showing obvious widening at the syndesmosis and medial clear space with loss of tib-fib overlap. The heel was floated. The ankle dorsiflexed and gross compression used to maintain reduction across the ankle mortise. The remaining 2 screw holes in the plate at the level of the syndesmosis were used to drill with a 2.5 mm drill quad cortically parallel to the ankle joint and filled with appropriate length 3.5 mm cortex screws. External rotation stress radiograph showed good medial clear space and tib-fib overlap reduction, stable under stress without widening. Final x-rays were taken, fracture, ankle joint, and hardware all placed appropriately. Wound was copiously irrigated normal saline. Subcutaneous tissue closed with 2-0 Monocryl buried interrupted. Skin closed with 3-0 Prolene running horizontal mattress. Xeroform applied over incision followed by gauze, ABD pad, sterile Sof-Rol and an AO short leg plaster splint applied maintaining foot and ankle in neutral position. The patient awoke from anesthesia without complication and was transferred to the recovery room in a stable condition.
--- NOTE | 2023-05-05 16:56 | W.ANESPOSTOP ---
Postoperative Evaluation Date, Time and Location Date Performed: 05/05/23 Time Performed: 16:56 Patient Location: PACU Vital Signs Most Recent Imported Vital Signs: Most Recent Vital Signs Temp Pulse Resp BP Pulse Ox 36.4 C L 72 15 100/66 96 05/05/23 16:51 05/05/23 16:51 05/05/23 16:51 05/05/23 16:51 05/05/23 16:51 Pain Score Most Recent Pain Score: Most Recent Pain Score Pain Level 0 05/05/23 16:51 Assessment Mental Status: Awake (Alert & Oriented to Patient Baseline) Airway and Respiratory Function: Patent airway with normal (patient baseline) respiratory exam Cardiovascular Function: Hemodynamically Stable Hydration Status: Adequately Hydrated Nausea & Vomiting: No Nausea or Vomiting Pain: Pt. Denies Any Pain Peripheral Nerve Block: Regional nerve block not resolved at time of post operative discharge
== END 2023-05-05 17:55 | disposition home or self-care (01) ==
PROVIDERS: PCP Nurse Practitioner Adult Health; Visit Provider Student in an Organized Health Care Education/Training Program
PROC: (CPT 27792; principal; 2023-05-05 16:30)
DX: S82.891A Other fracture of right lower leg, initial encounter for closed fracture (principal); X58.XXXA Exposure to other specified factors, initial encounter; J45.909 Unspecified asthma, uncomplicated; I10 Essential (primary) hypertension; Q60.0 Renal agenesis, unilateral; F17.200 Nicotine dependence, unspecified, uncomplicated
CPT/HCPCS: 27792; 27829; 76000; 76942; 73600; J0665; J0690; J1100; J2001; J2250; J2405; J2704; J3372

== ENCOUNTER 2023-05-17 15:59 | Outpatient (CLI) | payer MEDICAID, SELFPAY ==
--- NOTE | 2023-05-17 15:15 | DI.RAD_ITS ---
Exam(s) XR ANKLE RT COMPLETE EXAM: XR ANKLE RT COMPLETE CLINICAL HISTORY: F/U FRACTURE. TECHNIQUE: 2D digital imaging was performed. Three views. COMPARISON: CR,XR XR ANKLE RT COMPLETE from 05/04/2023 XR ANKLE RT 2V from 05/05/2023 FINDINGS: BONES: Hardware is again noted in the distal fibula. Fracture alignment is anatomic. Syndesmotic sc rews extending into tibia... No bony destructive lesion is seen. JOINTS: The ankle mortise appears widened laterally. SOFT TISSUE: Marked soft tissue swelling. IMPRESSION: Status post ORIF. DATA REPOSITORY: RADIATION DOSE DELIVERED:
--- NOTE | 2023-05-18 10:20 | W.ANESPRE ---
General Info Date of Service Date Performed: 05/18/23 Height: 5 ft 1 in Weight: 91.71 kg Body Mass Index (BMI): 38.2 Meds Allergies and Home Medications Allergies Allergy/AdvReac Type Severity Reaction Status Date / Time Opioids - Morphine Analogues AdvReac Unknown (h/o Verified 05/18/23 09:19 addiction; wants to avoid where possible) dust Allergy Mild unknown Uncoded 05/18/23 09:19 hay Allergy Mild unknown Uncoded 05/18/23 09:19 pollen Allergy Mild unknown Uncoded 05/18/23 09:19 animal dander Allergy Unknown unknown Uncoded 05/18/23 09:19 Home Medication Medication Instructions Recorded naloxone 4 mg/actuation nasal spray 1 spray intranasal ONCE PRN opioid 08/21/18 overdose #2 ea mupirocin 2 % topical ointment 1 applic topical BID-TID PRN skin 06/10/22 lesions #15 grams fluticasone propionate 50 See Rx Instructions .Route 07/20/22 mcg/actuation nasal .COMPLEX #16 grams spray,suspension citalopram 20 mg tablet See Rx Instructions .Route 11/15/22 .COMPLEX #90 tabs budesonide-formoterol HFA 160 See Rx Instructions .Route 12/15/22 mcg-4.5 mcg/actuation aerosol .COMPLEX #30.6 grams inhaler (Symbicort) naltrexone 50 mg tablet 50 mg PO DAILY #30 tabs 12/15/22 albuterol sulfate 90 mcg/actuation 1 - 2 puff inhalation Q4H PRN 12/16/22 aerosol inhaler (ProAir HFA) bronchospasm #17 grams aspirin 81 mg tablet,delayed 81 mg PO DAILY Prevent blood clot 05/05/23 release 14 days #14 tabs permethrin 5 % topical cream 1 applic topical Q14D 2 doses #60 05/05/23 grams sulfamethoxazole 800 1 tab PO BID 14 days #28 tabs 05/05/23 mg-trimethoprim 160 mg tablet (Bactrim DS) cetirizine 10 mg tablet 10 mg PO DAILY #90 tabs 05/11/23 famotidine 40 mg tablet 40 mg PO DAILY #14 tabs 05/11/23 lisinopril 20 1 tab PO DAILY #90 tabs 05/11/23 mg-hydrochlorothiazide 25 mg tablet PFSH Active Problems Active Problems: Problem Status Onset Code Syndesmotic disruption of right ankle S93.431A Closed right ankle fracture 05/04/23 S82.891A Asthma 11/26/13 J45.909 Essential hypertension 01/07/14 I10 Nicotine dependence F17.200 Solitary right kidney ~2017 Q60.0 Depression 03/08/16 F32.9 Multiple substance abuse ~2014 F19.10 Opioid use disorder, severe, dependence F11.20 Cocaine use disorder, severe, dependence F14.20 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 2 hepatic fibrosis ~2017 B18.2, K74.00 Fatty liver disease, nonalcoholic ~2017 K76.0 IFG (impaired fasting glucose) ~06/2022 R73.01 Snoring R06.83 Medical History Medical History (Updated 05/17/23 @ 17:23 by Adam Brock MD) Abnormal liver enzymes Hypokalemia due to excessive gastrointestinal loss of potassium (~04/2022) Elevated serum creatinine Akathisia Gastroenteritis Nausea vomiting and diarrhea Cannabis use disorder, severe, dependence Cellulitis of arm, right (~02/2022) IVDA History of hepatitis C (~2017) ADHD (attention deficit hyperactivity disorder) (~11/2020) [facility] Psychiatry started adderall 11/2020 Opioid dependence in remission (02/09/16) Heroin--IVDA [place] [facility] 2014, then relapse, 2016 on Methadone 2017--IVDA (Fentanyl & Cocaine); [facility] [place] [facility] by Iain Valdez; discharge on Earnest, Clonidine Intravenous drug abuse, episodic (07/04/17) IV Fentanyl and Cocaine 2018: [place] admission followed by Iain Valdez 2020: Relapse 02/2020: RUBY with Methadone treatment De Quervain's disease (radial styloid tenosynovitis) (09/06/16) Right Ortho+Mobic+Splint Allergic rhinitis (11/26/13) Medical History Comments:: 05/18/23: pt reports he smoked 2 cigarettes prior to pre-op today Surgical History Surgical History (Updated 05/18/23 @ 09:18 by Pattie Araujo RN) H/O umbilical hernia repair H/O wisdom tooth extraction [place] teeth extracted Tobacco Smoking/Tobacco Use Status: Current every day Tobacco Type: cigarettes Smoking cigarettes per day: 20 Years smoked: 5 Smokeless tobacco user: other Alcohol Alcohol Intake: former Year quit: 2017 Substance Use Substance use type: marijuana and heroin Details: [facility]ES [facility]- did have relapse in past week of heroin and cocaine 05/25/22; no cannibas for over 2 months. 05/18/23:pt reports last used heroin 12/25. Last used cocaine 1 week ago. Vital Signs and Lab Results Lab Results Blood Type / Crossmatch: No Data to Display Complete Blood Count: White Blood Count 13.74 10^3/uL (4.4-10.8) H 05/04/23 19:40 Red Blood Count 4.37 10^6/uL (4.36-5.78) 05/04/23 19:40 Hemoglobin 12.5 g/dL (13.5-17.5) L 05/04/23 19:40 Hematocrit 37.2 % (40.0-50.0) L 05/04/23 19:40 Platelet Count 296 10^3/uL (130-400) 05/04/23 19:40 Complete Metabolic Panel: Sodium 137 mmol/L (136-145) 05/04/23 19:40 Potassium 3.2 mmol/L (3.5-5.1) L 05/04/23 19:40 Chloride 100 mmol/L (98-107) 05/04/23 19:40 Carbon Dioxide 30.6 mmol/L (21.0-32.0) 05/04/23 19:40 BUN 39 mg/dL (7-18) H 05/04/23 19:40 Creatinine 1.9 mg/dL (0.70-1.30) H 05/04/23 19:40 Est GFR (CKD-EPI 2020) 44.06 (mL/min/1.73m2) 05/04/23 19:40 Calcium 8.9 mg/dL (8.5-10.1) 05/04/23 19:40 Albumin 3.1 g/dL (3.4-5.0) L 05/04/23 19:40 Glucose 93 mg/dL (74-106) 05/04/23 19:40 Hemoglobin A1c 6.0 % (<5.7) H 05/04/23 19:40 C-Reactive Protein 3.42 mg/dL (0.0-0.3) H 05/04/23 19:40 Liver Function Panel: Alanine Aminotransferase (ALT/SGPT) 39 U/L (16-63) 05/04/23 19:40 Aspartate Amino Transf (AST/SGOT) 87 U/L (15-37) H 05/04/23 19:40 Coagulation Panel: INR International Normalized Ratio 1.1 (0.9-1.1) 05/04/23 19:40 Prothrombin Time 11.0 sec (9.1-11.1) 05/04/23 19:40 Cardiac Panel: No Data to Display Arterial Blood Gas: No Data to Display Venous Blood Gas: No Data to Display Pancreas Panel: No Data to Display Thyroid Panel: No Data to Display Infectious Disease: Hepatitis C Antibody Reactive (Negative) A 05/04/23 19:40 Hepatitis C RNA Quantitative Not Applicable 05/04/23 19:40 Blood Cultures: No Data to Display Toxicology Panel: Urine Amphetamines Screen Negative (Negative) 05/04/23 19:29 Urine Benzodiazepines Screen Negative (Negative) 05/04/23 19:29 Urine Barbiturates Screen Negative (Negative) 05/04/23 19:29 Urine Cocaine Screen Positive (Negative) A 05/04/23 19:29 Urine Methadone Screen Negative (Negative) 05/04/23 19:29 Urine Opiates Screen Negative (Negative) 05/04/23 19:29 Ur Tricyclic Antidepressants Screen Negative (Negative) 05/04/23 19:29 Ur Tetrahydrocannabinol (THC) Scrn Negative (Negative) 05/04/23 19:29 Imaging and Studies Imaging and Studies Study information below may be from another EMR and interpreted by another provider. Please see original notes in EMR for more complete details. EKG Summary: 05/27: sinus rhythm. Pulmonary Function Summary: 11/23: moderate airflow obstruction. Anesthesia Assessment and Plan Anesthesia History Personal History: No History of Anesthesia Complications Family History: No Family History of Anesthesia Complications Exercise Tolerance Exercise Tolerance: Metabolic Equivalents>4 Pertinent Negatives Pertinent Negatives: No Symptoms of GERD Cardiac & Pulmonary Exam Cardiac Exam: Normal S1/S2 Heart Sounds Pulmonary Exam: Wheezing Present Implantable Cardiac Device Does patient have a Pacemaker or an ICD?: No Airway Exam Known Difficult Airway: No Mallampati Class: 3 Mouth Opening: Narrow (< 3cm) Thyromental Distance: Greater than 3 cm Neck Range of Motion: Full ROM Neck Circumference: Thick Teeth Condition: Normal Dentition ASA Classification ASA Score: ASA 2 Emergency Case?: No NPO Status NPO Status: NPO Clears >2 hours, Solids >8 hours Anesthesia Plan Resuscitation Status: Full Code Anesthesia Technique: General Anesthesia Airway Planned: Natural Airway Monitors Used: Standard Monitors
[2023-05-18 10:23] VITALS: BMI 38.2
== END 2023-05-17 16:00 | disposition home or self-care (01) ==
LOC: DIORS 15:59
PROVIDERS: PCP Nurse Practitioner Adult Health; Visit Provider Student in an Organized Health Care Education/Training Program
DX: S82.891D Other fracture of right lower leg, subsequent encounter for closed fracture with routine healing (principal); X58.XXXD Exposure to other specified factors, subsequent encounter
CPT/HCPCS: 73610

== ENCOUNTER 2023-05-18 08:55 | Day surgery (SDC) | payer MEDICAID, SELFPAY ==
[2023-05-18] VITALS (8 sets, daily range): BP systolic 130–169; BP diastolic 62–105; PULSE 67–95; RESP 11–18; TEMP 36.2–36.7; O2SAT 95–100
[2023-05-18] MEDS: Albuterol/Ipratropium 3 ML UPD VIAL UPD (09:51)
--- NOTE | 2023-05-18 10:57 | ROE_ITS ---
Date of service: 05/18/23 Time of Service: 10:57 Operative Note Operative Note DATE OF PROCEDURE: 05/18/23 PRE-OP DIAGNOSIS: Right ankle fracture dislocation ORIF with noncompliance and failing syndesmosis fixation POST-OP DIAGNOSIS: same PROCEDURE: Right ankle- 1. Revision open treatment syndesmosis disruption, CPT #189455 2. Removal of deep hardware, CPT #46619 SURGEON: Adam Brock CHRONOMETER ASSEMBLER AND ADJUSTER: Evaristo March ANESTHESIA TYPE: Local By Surgeon and General LMA/ETT Refer to Anesthesia Record ESTIMATED BLOOD LOSS: 5 TOURNIQUET TIME: 0 COMPLICATIONS: None Patient was transported to: PACU Patient's condition: stable Implants: [employer] TightRope XP x2 Indications: Please see complete medical record for details. Procedure Description: In the operating room, general anesthesia was induced. The patient was positioned supine on the operating room table. All bony prominences were well- padded. Preoperative antibiotics were administered including usual cefazolin and weight-based vancomycin for MRSA coverage. The right ankle was prepped and draped in the usual sterile fashion including meticulous cleansing of the numerous wounds. The toes foot and hindfoot were covered, Ioban covered all exposed skin about the leg. The correct patient, procedure, and side of the procedure were all verified prior to incision. The 2 syndesmotic screws were localized fluoroscopically. 30 cc of 0.25% bupivacaine infiltrated about the lateral and medial syndesmotic surgical sites. The healing direct lateral incision from primary surgery 2 weeks ago was reopened centered over the syndesmotic screws. The proximal screw was removed in entirety, it was loose and easily removed. Likely due to noncompliance in weightbearing and motion. The cannulated guidewire followed by cannulated drill for the tight rope were passed quad cortically, removed, and replaced with the syndesmotic tight rope device which was provisionally set in place. The distal sinus muscular was removed, similarly drill hole replaced with the tight rope guidewire, overdrilled with a cannulated drill, then replaced with a second tight rope device. The syndesmosis was readily reduced with direct medial lateral pressure and neutral mortise positioning. Each device had some medial soft tissue interposed, this was optimized as best possible with releasing of the medial tissues, then each device was sequentially tightened with the mortise medial clear space reduced. There was some dimpling and likely small amount interposed tissue about the distal tight rope device medially, decision was made to omit a medial opening given the additional leg wounds and risk for infection. As best possible soft tissues were releases at the skin and subcu tissue was definitely not interposed nor any tendon as appreciated with great toe motion. Final ankle mortise AP, stress view and lateral x-rays were taken. Excellent still fracture in distal fibula alignment and now excellent really reduced and fixated ankle mortise and medial clear space. Negative stress view. The small wound was copiously irrigated normal saline. Subcutaneous tissue closed with 2-0 Monocryl buried interrupted. Skin closed with 3-0 nylon horizontal mattress. Xeroform applied over incision followed by gauze, ABD pad, sterile Sof-Rol and an AO short leg plaster splint applied maintaining foot and ankle in neutral position.
--- NOTE | 2023-05-18 11:01 | W.PM.DSUDISC ---
Date of service: 05/18/23 Time of Service: 13:30 Discharge Plan Disposition Patient Disposition: Home Condition: Stable Discharge Details Attending Provider: Adam Brock Primary Care Provider: Amanda Ny Home Meds and New Rx's Prescriptions: New sulfamethoxazole-trimethoprim [Bactrim DS] 800-160 mg tablet 1 tab PO BID 14 Days Qty: 28 0RF aspirin 81 mg tablet,delayed release (DR/EC) 81 mg PO DAILY 14 Days Qty: 14 0RF Continued mupirocin 2 % ointment 1 applic topical BID-TID PRN (Reason: skin lesions) Qty: 15 0RF Rx Instructions: May substitute with cream if less expensive; apply thin layer until area/lesion resolved lisinopril-hydrochlorothiazide 20-25 mg tablet 1 tab PO DAILY Qty: 90 3RF cetirizine 10 mg tablet 10 mg PO DAILY Qty: 90 3RF Rx Instructions: DX: RUNNY NOSE AND ASTHMA famotidine 40 mg tablet 40 mg PO DAILY Qty: 14 0RF Rx Instructions: pruritic rash fluticasone propionate 50 mcg/actuation spray,suspension See Rx Instructions .ROUTE .COMPLEX Qty: 16 4RF Dose Instruction: SHAKE LIQUID AND USE 1 TO 2 SPRAYS IN EACH NOSTRIL DAILY NEEDED FOR ALLERGY SYMPTOMS Rx Instructions: SHAKE LIQUID AND USE 1 TO 2 SPRAYS IN EACH NOSTRIL DAILY NEEDED FOR ALLERGY SYMPTOMS naltrexone 50 mg tablet 50 mg PO DAILY Qty: 30 1RF budesonide-formoterol [Symbicort] 160-4.5 mcg/actuation HFA aerosol inhaler See Rx Instructions .ROUTE .COMPLEX Qty: 30.6 3RF Dose Instruction: INHALE 2 PUFFS BY MOUTH TWICE DAILY FOR ASTHMA Rx Instructions: INHALE 2 PUFFS BY MOUTH TWICE DAILY FOR ASTHMA citalopram 20 mg tablet See Rx Instructions .ROUTE .COMPLEX Qty: 90 3RF Dose Instruction: TAKE 1 TABLET BY MOUTH DAILY Rx Instructions: TAKE 1 TABLET BY MOUTH DAILY albuterol sulfate [ProAir HFA] 90 mcg/actuation HFA aerosol inhaler 1 - 2 puff Inhalation Q4H PRN (Reason: bronchospasm) Qty: 17 3RF Rx Instructions: DX: ASTHMA Equivalent Ventolin may be substituted or other albuterol; if able, please dispense 2 inhalers at a time naloxone 4 mg/actuation spray,non-aerosol 1 spray ARCHANA ONCE PRN (Reason: opioid overdose) Qty: 2 0RF sulfamethoxazole-trimethoprim [Bactrim DS] 800-160 mg tablet 1 tab PO BID 14 Days Qty: 28 0RF permethrin 5 % cream 1 applic topical Q14D Qty: 60 0RF Rx Instructions: Leave application on for 12 hours. Apply second treatment 14 days after first treatment if live lice remain aspirin 81 mg tablet,delayed release (DR/EC) 81 mg PO DAILY 14 Days Qty: 14 0RF Discharge Instructions Additional Instructions: Surgery: Right ankle syndesmosis revision Activity: Non-weightbearing right ankle with crutches. May rest splint gently on ground while standing. Strict elevation to minimize swelling and discomfort. Wiggle toes to improve circulation and prevent stiffness. Physical therapy prescription will be provided on follow-up if needed. Prescriptions: Aspirin 81mg take 1 every day for 2 weeks to prevent blood clot, start tomorrow morning Bactrim DS take 1 twice daily for 2 weeks to prevent infection You may use [id number] ibuprofen 600 mg every 8 hours for moderate to severe pain, use no more than leg for the next 5-7 days. Take with food and/or full glass of water. You may use [id number] Tylenol (acetaminophen) as needed for mild to moderate pain. These pain medications may be taken all at once or in different combinations as needed. (Recommend yogurt or probiotic while using antibiotic) Dressings: Leave splint and dressing in place until follow-up. Keep clean and dry at all times. Follow-up: 10-[address] Brock You may take off the leg compression stockings this evening at home. You may also leave them on a few days longer if you have a history of leg swelling or edema. Let us know right away if you develop any redness, drainage, fevers, chest pain, or trouble breathing. Do not drink alcohol or drive for at least 24 hours after anesthesia. Please call the office during business hours with any questions or concerns. Discharge Orders Discharge Orders: Discharge Order (Routine); Ordered 05/18/23 Ordered By: Adam Brock DS: Diagnosis Discharge Diagnosis (1) Syndesmotic disruption of right ankle: Status: Acute
[2023-05-18] MEDS: Lactated Ringers 1,000 ML 30 ML IV (11:09)
[2023-05-18] MEDS: VANCOMYCIN/WATER (PEG) 1.5 GM/300 ML BAG IVPB (11:12)
--- NOTE | 2023-05-18 11:25 | W.ANESVAS ---
Midline Placement Date Performed: 05/18/23 Procedure Time: 10:55 Requesting Provider: Adam Brock Procedure Location: Day Surgery Unit Sedation Given (Indicate Dose Given): No Sedation given Patient Mental Status: Awake Sterility: Hand Hygiene, Surgical Cap, Surgical Mask, Sterile Gloves, Sterile Drape/Sheet and Chlorhexidine Laterality: Left Insertion Site: Basilic Midline Device: PowerGlide Pro 18G Catheter Length: 10 cm Midline Procedure Procedure: 1% Lidocaine to skin and subcutaneous tissue with 25g needle, Vessel accessed with catheter over needle, Guidewire placed with ease, Catheter placed without resistance and Guidewire removed Dressing: Tegaderm Applied, Statlock Applied and Mastisol Used Blood Return: Present Flushes: Easily Ultrasound: Sterile probe cover and gel used Ultrasound Image Saved?: Yes Number of Attempts (See previous attempts in note section): 1 Procedure Tolerated: No Complications and Patient tolerated well Procedure Outcome: Successful Performed By: Erika Wall
[2023-05-18] MEDS: ceFAZolin 2 GM/50 ML BAG IVPB (11:38)
[2023-05-18] MEDS: EPINEPHrine 10 MG/10 ML ML (11:43)
[2023-05-18] MEDS: Bupivacaine 0.25% Pres-Free 30 ML VIAL (11:43)
--- NOTE | 2023-05-18 12:15 | DI.RAD_ITS ---
Exam(s) XR ANKLE RT 2V EXAM: XR ANKLE RT 2V CLINICAL HISTORY: closed ankle fracture with syndesmotic disruption TECHNIQUE: 2D and realtime digital imaging was performed. CONTRAST MATERIAL: Refer to procedure report. COMPARISON: CR XR ANKLE RT COMPLETE from 05/17/2023 FINDINGS: Fluoroscopy was provided for Dr. Brock in the OR. Please refer to the procedure report for complet e details. Ka,r=0.72 mGy IMPRESSION: RADIATION DOSE DELIVERED:
[2023-05-18] MEDS: Albuterol/Ipratropium 3 ML UPD VIAL (13:14)
--- NOTE | 2023-05-18 13:33 | W.ANESPOSTOP ---
Postoperative Evaluation Date, Time and Location Date Performed: 05/18/23 Time Performed: 13:33 Patient Location: PACU Vital Signs Most Recent Imported Vital Signs: Most Recent Vital Signs Temp Pulse Resp BP Pulse Ox 36.7 C 90 17 158/102 H 95 05/18/23 13:20 05/18/23 13:20 05/18/23 13:20 05/18/23 13:20 05/18/23 13:20 Pain Score Most Recent Pain Score: 0/10 Assessment Mental Status: Awake (Alert & Oriented to Patient Baseline) Airway and Respiratory Function: Patent airway with normal (patient baseline) respiratory exam (preop wheeze still present. Duoneb given in PACU and has slightly improved. Patient denying distress) Cardiovascular Function: Hemodynamically Stable (Noted BP is slightly elevated from preop but patient is doing well and denying any pain) Hydration Status: Adequately Hydrated Nausea & Vomiting: No Nausea or Vomiting Pain: Pt. Denies Any Pain Peripheral Nerve Block: Patient did not receive a nerve block
--- NOTE | 2023-05-18 15:01 | PT.INIE ---
PT Notes Inpatient Physical Therapy Evaluation Date: 05/18/23 Referring Doctor: Dr. Brock PT Orders: PT CONSULT: s/p ortho surgery Precautions: NWB RLE Patient Profile/Admitting Diagnosis: Patient seen in Day Surgery Unit on post op day 0 s/p right ankle ORIF revision. He originally underwent ORIF 2 weeks ago to repair fibular fx with lateral dislocation syndesmotic disruption. He was unfortunately non-compliant with weight bearing restrictions and required revision. Social History/Home Situation: Currently residing with his mother, who is present at time of consult. They report 3 CHIKIS with bilat rails. No further stairs once in the home. Employed [place] [employer] [place]. Equipment Owned/DME: crutches Subjective: Gómez states that he's feeling good. He would like to get up to use the restroom. He states that he's been getting around at home with the crutches, but has struggled to manage them. Objective: General Observation: Sitting up in bed at initiation of session. Fidgets in bed during history taking, and makes attempts to stand prior to having crutches available. Requires cues for safety frequently at initiation of session, improving throughout session. Mental Status: A&Ox3. Pleasant and cooperative. Pain: well managed ROM: Right Upper Extremity: WFL Left Upper Extremity: WFL Right Lower Extremity: Right hip and knee WFL. Right ankle immobilized in post-op splint. Left Lower Extremity: WFL Strength: Right Upper Extremity: WFL Left Upper Extremity: WFL Right Lower Extremity: Able to demonstrate SLR and hip AB/AD for bed mobility. Left Lower Extremity: WFL Bed Mobility/Transfers: supine-sit: independent sit-stand: CGA intially,with need for consistent cues for technique and equipment management. Demonstrates good maintenance of NWB. Progresses to supervision only by end of session with consistent demonstration of appropriate technique on multiple attempts. stand-sit: CGA intially,with need for consistent cues for technique and equipment management. Demonstrates good maintenance of NWB. Progresses to supervision only by end of session with consistent demonstration of appropriate technique on multiple attempts. Gait: Ambulates 75' x 2, 30'x2 with bilat axillary crutches, NWB RLE. Initially requires CGA, progressing to SBA by end of session without LOB or safety concerns Stairs: Demonstrates ability to navigate therapeutic stairs, 6x2, ascending and descending with use of single rail and both crutches on contralateral side. Requires min cues and demonstrates good carryover and safety awareness. Balance: Static Sitting: good Dynamic Sitting: good Static Standing: fair Dynamic Standing: fair Informed Consent/Education: Patient instructed in purpose of PT consult and plan of care. Treatment: Initial Evaluation (64083) Gait Training (49905): Crutches modified to appropriate height Instructed in use of bilat axillary crutches for ambulation, stair management and transfers *demonstrates good carry over with equipment management and RLE placement during transfers Assessment: Patient is a 43 year old male referred to physical therapy services with the diagnosis of right ankle fx s/p ORIF revision, post op day 0. Patient presents with clinical signs and symptoms consistent with diagnosis. Complicating factors include limited compliance with weight bearing restriction resulting in need for revision, h/o drug dependence, and chronic Hep C. He was able to demonstrate significant improvements in safety and consistency with equipment management by end of session. He is safe to return home with family assistance once medically stable. He currently demonstrates the following impairment level findings: 1. impulsivity 2. limited compliance with WBing restrictions 3. NWB RLE Impairments are contributing to the following functional limitations: 1. decreased safety with ambulation (*notably improved post-rx) Patient is assessed as Moderate 66278 complexity based on the following: History: As above Examination: functional limitations as noted above Presentation: evolving Decision Making: moderate Plan of Care/Treatment Plan: One time visit for gait training. No further PT intervention required. DISCHARGE RECOMMENDATIONS: Home with no services TREATMENT CODE/TIME: [id number] ([id number], [id number]) Please sign an return this page within 30 days if you agree with the above POC. Thank you! Physician Signature Date [facility] All Active Problems (Updated 05/17/23 @ 17:23 by Adam Brock MD) Syndesmotic disruption of right ankle (Acute) Closed right ankle fracture (Acute 05/04/23) S/P ORIF: 05/05/2023 Asthma (Chronic 11/26/13) PFTs 12/10/2013 severe obstructive disease & 11/2021-->airflow obstruction Essential hypertension (Chronic 01/07/14) Dx: 01/2014, RX Losartan & lifestyle Losartan dc'ed 02/2016 due to ins, changed to Lisinopril 07/2016: Higher-dose Lisinopril (20mg) caused GI probs, changed to Lisinopril-HCTZ 10-12.5mg Nicotine dependence (Chronic) Solitary right kidney (Chronic ~2017) Incidental finding on CT 11/2017 [facility] Depression (Chronic 03/08/16) [facility] Psychiatry 02/09/16 PHQ-9 score 15 mod severe Citalopram, stopped secondary to sexual side effects; resumed 04/2018 Multiple substance abuse (Chronic ~2014) Opioids (fentanyl, heroin, IVDA), cocaine 2015: [facility], heroin,cocaine 05/18/17- 05/24/17: [facility] with discharge to [place] (IV Fentanyl,IV cocaine) 10/2018: [facility] early 2020: Relapse cocaine & fentanyl 02/2020: RUBY/Methadone 03/2022: [facility] Opioid use disorder, severe, dependence (Acute) Cocaine use disorder, severe, dependence (Acute) 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 2 hepatic fibrosis (Chronic ~2017) Per [facility] in 2018 Fatty liver disease, nonalcoholic (Acute ~2017) stage 1 per [facility] [place] IFG (impaired fasting glucose) (Acute ~06/2022) A1C 6.1% Snoring (Acute) Medical History (Updated 05/17/23 @ 17:23 by Adam Brock MD) Abnormal liver enzymes Hypokalemia due to excessive gastrointestinal loss of potassium (~04/2022) Elevated serum creatinine Akathisia Gastroenteritis Nausea vomiting and diarrhea Cannabis use disorder, severe, dependence Cellulitis of arm, right (~02/2022) IVDA History of hepatitis C (~2017) ADHD (attention deficit hyperactivity disorder) (~11/2020) [facility] Psychiatry started adderall 11/2020 Opioid dependence in remission (02/09/16) Heroin--IVDA [facility] 2014, then relapse, 2015 on Methadone 2017--IVDA (Fentanyl & Cocaine); [facility] [place] followed by [facility]; discharge on [place], Clonidine Intravenous drug abuse, episodic (07/04/17) IV Fentanyl and Cocaine 2018: [facility] [place] [facility] followed by [facility] 2020: Relapse 02/2020: RUBY with Methadone treatment De Quervain's disease (radial styloid tenosynovitis) (09/06/16) Right Ortho+Mobic+Splint Allergic rhinitis (11/26/13) Surgical History (Updated 05/18/23 @ 09:18 by Pattie Araujo RN) H/O umbilical hernia repair H/O wisdom tooth extraction [place] teeth extracted
== END 2023-05-18 15:10 | disposition home or self-care (01) ==
PROVIDERS: PCP Nurse Practitioner Adult Health; Visit Provider Student in an Organized Health Care Education/Training Program
PROC: (CPT 27829; principal; 2023-05-18 11:15)
DX: S93.431A Sprain of tibiofibular ligament of right ankle, initial encounter (principal); J45.909 Unspecified asthma, uncomplicated; I10 Essential (primary) hypertension; F17.210 Nicotine dependence, cigarettes, uncomplicated; F11.20 Opioid dependence, uncomplicated; F14.20 Cocaine dependence, uncomplicated; B18.2 Chronic viral hepatitis C; K74.00 Hepatic fibrosis, unspecified; X58.XXXA Exposure to other specified factors, initial encounter
CPT/HCPCS: 27829; 20680; 76942; 97116; 97162; 73600; J0131; J0665; J0690; J1100; J1885; J2001; J2371; J2405; J2704; J3372; J7620

== ENCOUNTER 2023-05-31 15:41 | Outpatient (CLI) | payer MEDICAID, SELFPAY ==
--- NOTE | 2023-05-31 14:54 | DI.RAD_ITS ---
Exam(s) XR ANKLE RT COMPLETE EXAM: XR ANKLE RT COMPLETE CLINICAL HISTORY: F/U ORIF. TECHNIQUE: 2D digital imaging was performed. Three views. COMPARISON: CR XR ANKLE RT COMPLETE from 05/17/2023 XA XR ANKLE RT 2V from 05/18/2023 US POCUS EXAM from 05/18/2023 FINDINGS: BONES: No change in alignment fixation plate along the distal fibula and suture anchors. Increased c allus formation seen along the posterior aspect of the tibia.. No bony destructive lesion is seen. JOINTS: The ankle mortise is normally aligned. SOFT TISSUE: Soft tissue swelling at which has decreased from the prior exam. IMPRESSION: Stable hardware alignment. DATA REPOSITORY: RADIATION DOSE DELIVERED:
== END 2023-05-31 15:42 | disposition home or self-care (01) ==
LOC: DIORS 15:42
PROVIDERS: PCP Nurse Practitioner Adult Health; Visit Provider Student in an Organized Health Care Education/Training Program
DX: S82.891D Other fracture of right lower leg, subsequent encounter for closed fracture with routine healing; X58.XXXD Exposure to other specified factors, subsequent encounter
CPT/HCPCS: 73610